=== PATIENT | female | born 1955 | race Caucasian/White ===

== ENCOUNTER → 2017-10-03 15:45 | Outpatient (CLI) | payer SELFPAY ==
--- NOTE | 2017-10-03 16:03 | VDLE_ITS ---
Reason For Study: LEG PAIN RIGHT LEFT GSV is normal. CFV is compressible, spontaneous, phasic, CFV is compressible, spontaneous, phasic, competent, and demonstrates normal competent and demonstrates normal augmentation. augmentation. FV is compressible, spontaneous, phasic, competent and demonstrates normal augmentation. POP V is compressible, spontaneous, phasic, competent and demonstrates normal augmentation. T/P Trunk is compressible. PTV is compressible. RT PerV is compressible. Procedure Exam performed in department. A preliminary report was called and/or faxed to Dr. Anderson. Interpretation Summary Deep veins of the right lower extremity are patent and compressible segmentally. There is no evidence of right lower extremity deep vein thrombosis. Valvular competence appears intact within the proximal deep venous system on the right . The right greater saphenous vein appears patent and compressible segmentally. Ordering Physician: Monika Anderson Referring Physician: Monika Anderson Performed By: Gwen Hopper RVT
== END ==
PROVIDERS: Visit Provider Internal Medicine
DX: M79.661 Pain in right lower leg (principal)
CPT/HCPCS: 93971

== ENCOUNTER → 2017-10-13 17:29 | Outpatient (CLI) | payer OTHER, SELFPAY ==
--- NOTE | 2017-10-13 17:29 | DT_ITS ---
This patient was seen during an EMR downtime October 06, 2017 - October 13, 2017. This patient may have a combination of paper and electronic documentation or all paper documentation. All documentation is viewable within the e-chart portion of [facility] for each patient visit.
--- NOTE | 2017-10-13 17:39 | MRI_ITS ---
STUDY: MRI LUMBAR SPINE WITHOUT CONTRAST REASON FOR EXAM: Female, 61 years old. Low back pain, radiates to right leg. TECHNIQUE: Standardized fat and water weighted pulse sequences were obtained in the sagittal and axial planes. COMPARISON: None FINDINGS: T12-L1: Disc desiccation and decreased disc space with circumferential disc bulge without significant spinal canal narrowing or foraminal narrowing. Normal lumbar lordosis. There is no substantial scoliosis. Normal conus medullaris that terminates at the T12 level. L1-2: Disc desiccation and mild decreased disc space with circumferential disc bulge. There is mild bilateral foraminal narrowing and lateral recess narrowing at this level. L2-3: Decreased disc space and circumferential disc bulge is present without significant foraminal narrowing. There is mild lateral recess narrowing at this level. L3-4: Disc desiccation and disc osteophyte complex with compounding facet hypertrophy resulting in severe spinal canal narrowing and lateral recess narrowing at this level. There is mild bilateral foraminal narrowing. L4-5: Decreased disc space and circumferential disc bulge with compounding facet hypertrophy results in moderate right and severe left lateral recess narrowing and moderate spinal canal narrowing. There is mild right and moderate left foraminal narrowing present. L5-S1: Decreased disc space and endplate degenerative change with disc osteophyte complex and disc bulge resulting in mild left foraminal narrowing without significant spinal canal narrowing. There is moderate left and mild right lateral recess narrowing. Normal visualized sacral ala. Normal visualized paraspinous soft tissue structures. MRI/Spine Lumbar (Routine) IMPRESSION: 1. L3/4 severe spinal canal narrowing and lateral recess narrowing, clinically correlate for descending L4 nerve root radiculopathy. 2. L4/5 moderate right and severe left lateral recess narrowing with moderate spinal canal narrowing as above. 3. Additional degenerative changes as above. Electronically Signed: Antonio Green DO at 22:34 EDT , Service support ,
== END ==
PROVIDERS: Visit Provider Internal Medicine
DX: M54.5 Low back pain (principal)
CPT/HCPCS: 72148

== ENCOUNTER 2020-11-07 18:17 | Emergency (ER) | payer OTHER, SELFPAY ==
[2020-11-07 18:18] VITALS: BP 118/68; PULSE 85; RESP 17; TEMP 36.2; O2SAT 97; BMI 25.0
--- NOTE | 2020-11-07 18:43 | CT_ITS ---
STUDY: CT ABDOMEN AND PELVIS WITHOUT CONTRAST REASON FOR EXAM: Female, 65 years old. Other, RT ABDOMEN AND GROIN PAINSURGERY:HERNIA REPAIR WITH MESH,TUBAL LIGATION RADIATION DOSAGE (If Supplied By Facility): CTDIvol = ( 15.99 ) mGy, DLP = ( 751.06 ) mGycm TECHNIQUE: Transaxial images were obtained from the dome of the diaphragm to the symphysis pubis without oral contrast, and without intravenous contrast. Sagittal and coronal images were reconstructed. Individualized dose optimization techniques were used for this CT. COMPARISON: CT of abdomen and pelvis dated December 07, 2014 FINDINGS: The visualized lung bases are unremarkable. Reidentification of numerous benign cysts scattered throughout the liver . Small cysts in the uncinate process of the pancreas is unchanged. The remaining aspects of the pancreas are unremarkable. Stable intra-abdominal hernia mesh. Normal gallbladder and extrahepatic biliary system. There is a benign calcified granuloma of the spleen. Normal bilateral adrenal glands. Normal right kidney. Normal left kidney. No radiopaque stones or hydronephrosis is seen. Normal visualized stomach. Normal small intestine. There are multiple colonic diverticula consistent with diverticulosis. The colon is stool-filled. The appendix is visualized and appears normal. There is diffuse atherosclerotic calcification of the abdominal aorta with elongation and tortuosity, but without a demonstrated aneurysm. Normal inferior vena cava. Normal retroperitoneum. Normal urinary bladder. Unremarkable uterus and bilateral adnexal clips. Normal abdominal wall. Normal osseous structures. CT/Abdomen/Pelvis without Cont IMPRESSION: 1. Colonic diverticulosis. Electronically Signed: Kyire Dominguez MD at 20:44 EDT , Service support ,
--- NOTE | 2020-11-07 18:43 | EX.ED.DYSGE1 ---
HPI History of Present Illness Chief Complaint: Abd Pain Narrative Narrative: Patient presents with right lower quadrant abdominal pain some suprapubic pain and some dysuria. She also has some flank pain. Apparently she has had a UTI on and off for the past few months. She is denying any fever or chills she was started on antibiotics a week ago and the dysuria is slightly improving. No nausea or vomiting. PFSH PFSH Home Medications prednisone 50 mg PO DAILY #5 tab 11/07/20 [Rx Last Taken Unknown] Allergy/AdvReac Type Severity Reaction Status Date / Time No Known Allergies Allergy Verified 11/07/20 18:19 Social History Smoking Status: Never smoker ROS ROS ED ROS Narrative Past medical history: Reviewed Medications: Reviewed Social history: Noncontributory Review of systems: All systems negative except as indicated General: No fever Eyes: No visual changes ENT: No upper airway congestion, normal voice Neck: No neck pain Cardiovascular: No chest pain Respiratory: No shortness of breath or cough Gastrointestinal: Abdominal pain and flank pain as in HPI Genitourinary: Urinary symptoms as in HPI Musculoskeletal: The abdominal pain does radiate into the upper thigh region of the right leg. Skin: No rash Neurological: No memory loss, confusion or any focal weakness Psych: No recent behavioral changes Hematologic: No easy bleeding or easy bruising EXAM Physical Exam Narrative Exam Narrative: Physical exam General: Well nourished, Well developed, No Acute Distress Head: Normocephalic, Atraumatic Eyes: Conjunctiva not pale ENT: Moist mucous membranes Neck: Supple, Nontender, No lymphadenopathy Cardiovascular: Regular rate, Regular rhythm Respiratory: No distress, CTA bilaterally Abdomen: Soft, there is some right lower quadrant pain and midline pain. There is no guarding or rebound. Back: Nontender, Normal Inspection. Some tenderness over the right CVA region and lower. Extremities: Some tenderness to palpation anteriorly over the right proximal thigh region, no mass, no infection, neurovascularly intact Skin: Normal color, No rash Neurological: Alert, Normal Strength, Normal Sensation Psychological: Normal affect Const Vital Signs: 11/07/20 18:18 11/07/20 19:36 Temperature 97.2 F L Temperature Source Temporal Pulse Rate 85 59 L Respiratory Rate 17 16 Blood Pressure 118/68 118/73 Blood Pressure Mean 84 88 Pulse Ox 97 100 Oxygen Delivery Method Room Air Room Air MDM MDM MDM Narrative Medical decision making narrative: Patient has an unremarkable work-up I reexamined her she seems to have quite a lot of pain over her IT band as well as posterior buttock region, she has no back pain she has a negative straight leg test, she has no other radicular or neurological symptoms. She may benefit from an orthopedic follow-up otherwise I believe she can be discharged in stable condition. Lab Data Labs: Laboratory Results - last 24 hr 11/07/20 11/07/20 11/07/20 18:36 18:52 18:52 WBC 6.5 RBC 4.39 Hgb 13.4 Hct 41.1 MCV 93.6 MCH 30.5 MCHC 32.6 RDW Std Deviation 47.0 H RDW Coeff of [place] 13.7 Plt Count 228 MPV 9.0 Immature Gran % (Auto) 0.200 Neut % (Auto) 50.7 Lymph % (Auto) 40.5 [place] % (Auto) 6.0 Eos % (Auto) 1.7 Baso % (Auto) 0.9 Absolute Neuts (auto) 3.3 Absolute Lymphs (auto) 2.62 Nucleated RBC % 0 Sodium 140 Potassium 3.9 Chloride 106 Carbon Dioxide 28.0 Anion Gap 6 BUN 15 Creatinine 0.92 Estim Creat Clear Calc 57.83 Est GFR (MDRD) Af Amer 79 Est GFR (MDRD) Non-Af 65 BUN/Creatinine Ratio 16.3 Glucose 94 Calcium 9.2 Total Bilirubin 0.50 AST 20 ALT 29 Alkaline Phosphatase 74 Total Protein 8.1 Albumin 3.7 Globulin 4.4 H Albumin/Globulin Ratio 0.8 L Urine Color Yellow Urine Clarity Clear Urine pH 6.0 Ur Specific [place] 1.010 Urine Protein Negative Urine Glucose (UA) Normal Urine Ketones Negative Urine Occult Blood 25 H Urine Nitrite Negative Urine Bilirubin Negative Urine Urobilinogen Normal Ur Leukocyte Esterase Negative Urine RBC 0 SEEN Urine WBC 0 SEEN Ur Squamous Epith Cells 0-5 SEEN Urine Bacteria 0 SEEN Urine Mucus 0 SEEN Radiography Diagnostic Testing: Radiology Impression Abdomen/Pelvis CT 11/07/20 18:43 IMPRESSION: 1. Colonic diverticulosis. Electronically Signed: Kyrie Dominguez MD at 20:44 EDT , Service support , Discharge Plan Triage Chief Complaint: Abd Pain ED Provider: Tr De Dios Dx/Rx/DC Orders Clinical Impression: Abdominal pain, Acute leg pain Instructions: Abdominal Pain, RICE Prescriptions: New prednisone 50 mg tablet 50 mg PO DAILY Qty: 5 RF: 0 Primary Care Provider: Monika Anderson Referrals: Monika Anderson DO [Primary Care Provider] - Abelino Nicholson MD [STAFF PHYSICIAN] - 3-5 Days
[2020-11-07 19:03] LABS: Absolute Lymphocyte Count 2.62 X10^3/uL (0.83-4.51); Absolute Neutrophil Count 3.3 X10^3/uL (2.0-7.7); Basophil# 0.06 X10^3/uL; Basophil% 0.9 % (0-1); Eosinophil# 0.11 X10^3/uL; Eosinophils% 1.7 % (0-5); Hematocrit 41.1 % (37-47); Hemoglobin 13.4 g/dL (12.0-15.0); Lymphocyte # 2.62 X10^3/ul (0.83-4.51); Lymphocyte % 40.5 % (19-41); Mean Corp Hgb Conc 32.6 g/dL (32-36); Mean Corpuscular Hgb 30.5 pg (27.0-32.0); Mean Corpuscular Volume 93.6 fL (81-99); Monocyte# 0.39 X10^3/uL; NRBC Flagged by Analyzer 0 % (0-5); Neutrophil # 3.28 X10^3/uL (2.7-7.7); Neutrophil % 50.7 % (47-70); Platelet Count 228 K/mm3 (150-450); RBC Distribution Width CV 13.7 % (11.6-14.6); Red Blood Count 4.39 M/mm3 (4.2-5.4); White Blood Count 6.5 K/mm3 (4.4-11.0)
[2020-11-07 19:09] LABS: Bacteria 0 SEEN /hpf (None Seen); Color, Urine Yellow (Yellow); Glucose, Dipstick Normal (Normal); Ketone-Dipstick Negative (Negative); Leukocyte Esterase-Dipstick Negative /ul (Negative); Mucous, Urine 0 SEEN /hpf (<or=2+); Nitrite-Dipstick Negative (Negative); Occult Blood-Urine 25 /ul (Negative); Protein-Dipstick Negative (Negative); Red Blood Cells-Urine 0 SEEN /hpf (0-5); Urine Bilirubin Dipstick Negative (Negative); Urine Clarity Clear (Clear); Urine Urobilinogen Normal (Normal); White Blood Cells 0 SEEN /hpf (0-5)
[2020-11-07 19:15] LABS: Squamous Epithelial Cells - UA 0-5 SEEN /hpf (5-10)
[2020-11-07 19:19] LABS: ALB/GLOB Ratio 0.8 RATIO (0.9-2.4); AST(SGOT) 20 U/L (15-37); Alanine Aminotransfer ALT/SGPT 29 U/L (13-56); Albumin, Serum 3.7 g/dL (3.2-5.0); Alkaline Phosphatase 74 U/L (45-117); Anion Gap 6 (5-15); BUN 15 mg/dL (7-18); BUN/Creat Ratio 16.3 RATIO (10-20); Calcium,Total 9.2 mg/dL (8.5-10.1); Chloride 106 mmol/L (98-107); Creatinine, Serum 0.92 mg/dL (0.55-1.02); EST Glomerular Filtration Rate 65 mL/min (>60); Est Glom Filt Rate - Afr Amer 79 mL/min (>60); Estimated Creatinine Clearance 57.83 ml/min; Globulin 4.4 g/dL (2.2-4.2); Glucose 94 mg/dL (74-106); Potassium 3.9 mmol/L (3.5-5.1); Protein, Total 8.1 g/dL (6.4-8.2); Sodium Level 140 mmol/L (136-145)
[2020-11-07 19:36] VITALS: BP 118/73; PULSE 59; RESP 16; O2SAT 100
[2020-11-07 21:29] VITALS: PULSE 62; RESP 16; O2SAT 98
== END 2020-11-07 21:30 | disposition home or self-care (01) ==
LOC: ED 19:14
PROVIDERS: Emergency Provider Emergency Medicine; PCP Internal Medicine
DX: R10.9 Unspecified abdominal pain (principal); M79.606 Pain in leg, unspecified; K57.30 Diverticulosis of large intestine without perforation or abscess without bleeding; Z79.52 Long term (current) use of systemic steroids; Z87.440 Personal history of urinary (tract) infections
CPT/HCPCS: 74176; 80053; 81001; 85025; 99283; A4216

== ENCOUNTER → 2024-06-11 | Outpatient (CLI) | payer SELFPAY ==
[2024-06-11 17:53] LABS: Hematocrit 39.8 % (37-47); Mean Corp Hgb Conc 32.7 g/dL (32-36); Mean Corpuscular Volume 91.9 fL (81-99); Mean Platelet Vol. 9.8 fl (6.2-12.0); Platelet Count 260 K/mm3 (150-450); RBC Distribution Width CV 14.7 % (11.6-14.6); RBC Distribution Width SD 50.1 fl (35.1-43.9); Red Blood Count 4.33 M/mm3 (4.2-5.4); White Blood Count 8.3 K/mm3 (4.4-11.0)
[2024-06-11 18:22] LABS: ALB/GLOB Ratio 0.8 RATIO (0.9-2.4); AST(SGOT) 16 U/L (15-37); Alanine Aminotransfer ALT/SGPT 20 U/L (13-56); Albumin, Serum 3.8 g/dL (3.2-5.0); Alkaline Phosphatase 71 U/L (45-117); Anion Gap 6 (5-15); BUN 15 mg/dL (7-18); BUN/Creat Ratio 21.5 RATIO (10-20); Calcium,Total 9.6 mg/dL (8.5-10.1); Chloride 102 mmol/L (98-107); EST Glomerular Filtration Rate 89 mL/min (>60); Est Glom Filt Rate - Afr Amer 108 mL/min (>60); Globulin 4.7 g/dL (2.2-4.2); Glucose 112 mg/dL (74-106); Potassium 4.3 mmol/L (3.5-5.1); Protein, Total 8.5 g/dL (6.4-8.2); Rheumatoid Factor < 10.0 IU/mL (<15); Sodium Level 136 mmol/L (136-145); Uric Acid 3.7 mg/dL (2.6-6.0)
[2024-06-14 16:07] LABS: ANTINUCLEAR ANTIBODIES DIRECT Negative (Negative)
== END | disposition home or self-care (01) ==
PROVIDERS: PCP Family Medicine; Referring Provider Family Medicine; Visit Provider Family Medicine
DX: M17.11 Unilateral primary osteoarthritis, right knee (principal)
CPT/HCPCS: 36415; 80053; 84550; 85027; 86038; 86431

== ENCOUNTER → 2025-01-08 | Outpatient (CLI) | payer SELFPAY ==
--- OUTSIDE RECORDS SUMMARY | 2025-01-08 07:39 | XMS RPT_ITS | CCD ---
Author Organization [facility] Care Team Providers Care Numerical Control Programmer Name Role Phone Monika Anderson Unavailable Marian Mathew Unavailable Unavailable Ciesa, Kary Unavailable Galilea Waters Unavailable Unavailable Unavailable Unavailable Matthew Ferguson Unavailable Unavailable Messenger Galilea Unavailable Unavailable Unavailable Unavailable Justin ROSSI Monika Unavailable Lela Solano CMA Unavailable Unavailable Messenger Galilea SALOMON Unavailable Unavailable Marian Mathew Unavailable Unavailable Ciesa CESAR, Kary Unavailable Unavailable Unavailable Sean Garcia Admitting Provider Sean Garcia Attending Provider [facility], [facility] Emergency Provider Unav ailable Sean Pineda V. Attending Unavailable Sean Pineda V. Admitting Unavailable [facility], [facility] Consulting Unavail able Unavailable Primary Care Provider UnavailSEAN Bonner Referring Unavailable SHELLEY CRUZ Attending Unavailable Dr. Breezy Mello MD Primary Care Provider [phone] Dr. Breezy Mello MD Referring Provider Dr. Woody Guerrier DO Attending Provider Dr. Thang Yuen MD Attending Provider Breezy Mello Referring Unavailable Breezy Mello Attending Unavailable Breezy Mello Primary Care Unavailable Breezy Mello Primary Care Unavailable Woody Guerrier Attending Unavailable Breezy Mello Primary Care Unavailable Woody Guerrier Referring Unavailable Woody Guerrier Attending Unavailable Breezy Mello Referring Unavailable Breezy Mello Primary Care Unavailable Woody Guerrier Attending Unavailable Riaz, Breezy Primary Care Unavailable Alpa, Thang Attending Unavailable Medications Completed/Discontinued Medications Medication Drug Class(es) Dates Sig (Normalized) Sig (Original) acetaminophen 325 mg / HYDROcodone bitartrate 5 mg oral tablet (2 sources) Opioid Agonist Start: 06-06-2022 take 1 tablet by mouth every four to six hours as needed for pain Hydrocodone/Apap 5mg/325mg [Hydrocodone/Apap 5 Mg/325 Mg] 1 - 2 TAB PO EVERY 4 TO 6 HOURS NEEDED PRN For pain 40 7 June 06, 2022 Active amoxicillin 875 mg / clavulanate 125 mg oral tablet (11 sources) Penicillin-class Antibacterial Start: 10-30-2020 End: 11-09-2020 take 1 tablet by mouth twice daily Amoxicillin-Pot Clavulanate 875-125 MG Oral Tablet 1 (one) Tablet bid for 10 days Quantity: 20 {Tablet} Refills: 0 Ordered: 30-Oct-2020 Lela Solano CMA Start : 30-Oct-2020 End : 09-Nov-2020 Inactive Start: 07-01-2018 End: 07-11-2018 take 1 tablet by mouth twice daily Augmentin 875-125 MG Oral Tablet 1 (one) Tablet bid for 10 days Quantity: 20 {Tablet} Refills: 0 Ordered: 01-Jul-2018 Karina GUERRERODebra Start : 01-Jul-2018 End : 11-Jul-2018 Inactive aspirin 325 mg oral tablet (2 sources) Platelet Aggregation Inhibitor, Nonsteroidal Anti-inflammatory Drug Start: 06-06-2022 take 325 mg by mouth twice daily Aspirin 325 MG PO TWICE A DAY June 06, 2022 Active azithromycin 250 mg oral tablet (7 sources) Macrolide Antimicrobial Start: 03-03-2007 End: 10-04-2008 ZITHROMAX Z-ILENE, 250MG (Oral Tablet) 1 (one) Tablet as directed for 0 days Quantity: 1 {Tablet} Refills: 0 Ordered: 03-Mar-2007 STEVE Sterling LPN Start : 03-Mar-2007 End : 04-Oct-2008 Inactive celecoxib 200 mg oral capsule (2 sources) Nonsteroidal Anti-inflammatory Drug Start: 06-06-2022 take 200 mg by mouth twice daily Celecoxib [Celebrex] 200 MG PO TWICE A DAY June 06, 2022 Active ciprofloxacin 500 mg oral tablet (7 sources) Quinolone Antimicrobial Start: 12-09-2014 End: 08-16-2015 take 1 tablet by mouth twice daily CIPRO, 500MG (Oral Tablet) 1 (one) Tablet bid for 0 days Quantity: 20 {Tablet} Refills: 0 Ordered: 16-Aug-2015 Galilea Waters RN Start : 09-Dec-2014 End : 16-Aug-2015 Inactive COMPOUNDED PRESCRIPTION (3 sources) Start: 03-22-2009 COMPOUNDED PRESCRIPTION thyroid herbs---once daily 0 03/22/2009 Active Comment on above: thyroid herbs---once daily cyclobenzaprine hydrochloride 10 mg oral tablet (3 sources) Muscle Relaxant Start: 01-15-2014 take 1 tablet by mouth every eight hours as needed cyclobenzaprine (FLEXERIL) 10 mg tablet Take 1 tablet by mouth three times daily as needed for Muscle Spasm. 15 tablet 0 01/15/2014 Active Comment on above: [facility] times daily as needed for Muscle Spasm. garlic preparation 500 mg oral capsule (2 sources) Non-Standardized Food Allergenic Extract Start: 05-20-2022 take 500 mg by mouth once daily Garlic [Garlic Oil] 500 MG PO DAILY May 20, 2022 Active Start: 05-20-2022 take 500 mg by mouth once timur y Garlic 500 MG PO DAILY May 20, 2022 Active lansoprazole 30 mg delayed release oral capsule (7 sources) Proton Pump Inhibitor Start: 08-24-2007 End: 10-04-2008 take 1 capsule by mouth once daily PREVACID, 30MG (Oral Capsule Delayed Release) 1 (one) Capsule DR Daily for 0 days Refills: 0 Ordered: 24-Aug-2007 STEVE Sterling LPN Start : 24-Aug-2007 End : 04-Oct-2008 Inactive Multivitamin preparation (2 sources) Start: 05-20-2022 take 1 capsule by mouth once daily Multivitamin [Multivitamin *] 1 CAP PO DAILY May 20, 2022 Active Start: 05-20-2022 take 1 capsule by mo [facility] once daily Multivitamin 1 CAP PO DAILY May 20, 2022 Active nitrofurantoin, macrocrystals 25 mg / nitrofurantoin, monohydrate 75 mg oral capsule (5 sources) Nitrofuran Antibacterial Start: 07-10-2020 End: 07-17-2020 take 1 capsule by mouth twice daily Macrobid 100 MG Oral Capsule 1 (one) Capsule bid for 7 days Quantity: 14 {Capsule} Refills: 0 Ordered: 10-Jul-2020 Debra Collins CNP Start : 10-Jul-2020 End : 17-Jul-2020 Inactive Comments: or generic Comment on above: or generic No routine meds at this time (7 sources) No routine meds at this time Active Wyocena-3 Fatty Acids (1 source) Start: 05-20-2022 take 1 capsule by mouth once daily Wyocena-3 Fatty Acids 1 CAP PO DAILY May 20, 2022 Active Wyocena-3 Fatty Acids [Fish Oil 1000 Mg] (1 source) Start: 05-20-2022 take 1 capsule by mouth once daily Wyocena-3 Fatty Acids [Fish Oil 1000 Mg] 1 CAP PO DAILY May 20, [Mass/Vol] 14.3 g/dL Normal 12.0-16.0 [facility] Comment on above: Performed By: #### C BC #### [address] [address] Lymphocytes (Bld) [#/Vol] 2.6 10*3/uL Normal 1.0-4.0 [facility] Comment on above: Performed By: #### C BC #### [address] [address] Lymphocytes/100 WBC (Bld) 42.3 % Normal 16-48 [facility] Comment on above: Performed By: #### C BC #### [facility] [address] [place] [address] MCV (RBC) [Entitic vol] 95.5 fL Normal 80-97 [facility] Comment on above: Performed By: #### C BC #### [facility] [address] [place] [address] MEAN CORPUSCULAR HGB 31.4 pg Normal 26.0-32.0 [facility] Comment on above: Performed By: #### C BC #### [facility] [address] [place] [address] MEAN CORPUSCULAR HGB CONC 32.9 g/dL Normal 31.0-36.0 [facility] Comment on above: Performed By: #### C BC #### [address] [address] MONO DISTRIB WIDTH Not performed Normal 0-20 [facility] Comment on above: Performed By: #### C BC #### [facility] [address] [place] [address] Monocytes (Bld) [#/Vol] 0.4 10*3/uL Normal 0.1-1.7 [facility] Comment on above: Performed By: #### C BC #### [facility] [address] [place] [address] Monocytes/100 WBC (Bld) 5.7 % Normal 3-9 [facility] Comment on above: Performed By: #### C BC #### [facility] [address] [place] [address] Platelet mean volume (Bld) [Entitic vol] 7.3 fL Normal 6.6-10.5 [facility] Comment on above: Performed By: #### C BC #### [facility] [address] [place] [address] Platelets (Bld) [#/Vol] 299 10*3/uL Normal 140-450 [facility] Comment on above: Performed By: #### C BC #### [facility] [address] [place] [address] RBC (Bld) [#/Vol] 4.55 10*6/uL Normal 4.20-5.50 [facility] Comment on above: Performed By: #### C BC #### [facility] [address] [place] [address] RED CELL DISTRI WIDTH 14.2 % Normal 11.0-15.5 [facility] Comment on above: Performed By: #### C BC #### [facility] [address] [place] [address] WBC (Bld) [#/Vol] 6.2 10*3/uL Normal 4.0-11.0 [facility] Comment on above: Performed By: #### C BC #### [facility] [address] [place] [address] GLYCOHEMOGLOBIN (A1C)on 05-05 EST AVG GLUCOSE [address] [facility] Comment on above: Performed By: #### G LY #### [facility] [address] [place] [address] HbA1c (Bld) [Mass fraction] 5.7 % [facility] Comment on above: Result Comment: Inte rpretation of Hgb A1C results: <5.7% Normal 5.7% - 6.4% Prediabetes >6.4% Diabetes SAMPLES FROM PATIENTS WITH HEMOLYTIC ANEMIAS OR THE PRESENCE OF UNSTABLE HEMOGLOBINS LIKE HbSS OR HbSC WILL EXHIBIT DECREASED GLYCATED HGB DUE TO THE SHORTENED LIFE SPAN OF THE RED CELLS.RESULTS ARE NOT RELIABLE IN PATIENTS WITH CHRONIC BLOOD LOSS. Performed By: #### G LY #### [address] [address] Laboratory studies (set)on 0 - Basophils (Bld) [#/Vol] 0.1 10*3/uL 0-0.1 [facility] Basophils/100 WBC (Bld) 1.00 % 0-2 [facility] Eosinophils (Bld) [#/Vol] 0.1 10*3/uL 0.0-1.80 [facility] Eosinophils/100 WBC (Bld) 1.3 % 0-8 [facility] Erythrocyte distribution width (RBC) [Ratio] 14.2 % 11.0-15.5 [facility] Granulocytes (Bld) [#/Vol] 3.1 10*3/uL 2.2-9.1 [facility] Granulocytes/100 WBC (Bld) 49.7 % 42-80 [facility] Lymphocytes (Bld) [#/Vol] 2.6 10*3/uL 1.0-4.0 [facility] Lymphocytes/100 WBC (Bld) 42.3 % 16-48 [facility] MCH (RBC) [Entitic mass] 31.4 pg 26.0-32.0 [facility] MCHC (RBC) [Mass/Vol] 32.9 g/dL 31.0-36.0 [facility] MCV (RBC) [Entitic vol] 95.5 fL 80-97 [facility] Monocyte distribution width Auto (Bld) [Entitic vol] 0-20 [facility] Monocytes (Bld) [#/Vol] 0.4 10*3/uL 0.1-1.7 [facility] Monocytes/100 WBC (Bld) 5.7 % 3-9 [facility] Platelet mean volume (Bld) [Entitic vol] 7.3 fL 6.6-10.5 [facility] Platelets (Bld) [#/Vol] 299 10*3/uL 140-450 [facility] RBC (Bld) [#/Vol] 4.55 10*6/uL 4.20-5.50 [facility] WBC (Bld) [#/Vol] 6.2 10*3/uL 4.0-11.0 [facility] Anion gap [Moles/Vol] 9.8 mmol/L Low 11-23 [facility] Appearance (U) CLEAR [facility] Bilirubin Ql (U) NEGATIVE [facility] Calcium [Mass/Vol] 10.0 mg/dL 8.5-10.1 [facility] Chloride [Moles/Vol] 104 mmol/L 98-107 [facility] CO2 [Moles/Vol] 27.0 mmol/L 21-32 [facility] Color (U) [facility] Creatinine [Mass/Vol] 0.80 mg/dL 0.55-1.02 [facility] Estimated Average Glucose 117 [facility] Estimated GFR () [facility] Comment on above: THE NORMAL LEVEL OF GFR VARIES ACCORDING TO AGE, SEX, AND BODY SIZE. A GFR LEVEL OF LESS THAN 60 ML/MIN REPRESENTS LOSS OF THE ADULT LEVEL OF NORMAL KIDNEY FUNCTION. GFR/1.73 sq M.predicted among non-blacks MDRD (S/P/Bld) [Vol rate/Area] [facility] Glucose [Mass/Vol] 105 mg/dL High 70-100 [facility] Glucose Ql (U) NEGATIVE [facility] HbA1c (Bld) [Mass fraction] 5.7 % [facility] Comment on above: Interpretation of Hg b A1C results: <5.7% Normal 5.7% - 6.4% Prediabetes >6.4% Diabetes SAMPLES FROM PATIENTS WITH HEMOLYTIC ANEMIAS OR THE PRESENCE OF UNSTABLE HEMOGLOBINS LIKE HbSS OR HbSC WILL EXHIBIT DECREASED GLYCATED HGB DUE TO THE SHORTENED LIFE SPAN OF THE RED CELLS.RESULTS ARE NOT RELIABLE IN PATIENTS WITH CHRONIC BLOOD LOSS. Hemoglobin Ql (U) High NEGATIVE [facility] Ketones Ql (U) NEGATIVE [facility] Leukocyte esterase Test strip Ql (U) High NEGATIVE [facility] Nitrite Ql (U) NEGATIVE [facility] pH (U) 5.5 [pH] 5.0-9.0 [facility] Potassium [Moles/Vol] 3.8 mmol/L 3.5-5.1 [facility] Protein Ql (U) NEGATIVE [facility] RBC LM.HPF (Urine sed) [#/Area] 0-2 [facility] Sodium [Moles/Vol] 137 mmol/L 136-145 [facility] Specific gravity (U) [Rel density] 1.025 1.003-1.035 [facility] Urea nitrogen [Mass/Vol] 12.0 mg/dL 7-18 [facility] Urine Bacteria <1+ [facility] Urine Squamous Epithelial Cells NONE-MANY [facility] Urine WBC 0-3 [facility] Urobilinogen Ql (U) 0.2 E.U./dL <=1.0 [facility]-20-2022 PC.CONSULT YO [place] [id number] Attending provider: [facility] [id number] Sean Pineda V. 1955 66 DOS: Perioperative Clinic Consult - Date of Service Date of Service: 05/20/22 - History of Present Illness Reason for Visit: Osteoarthritis of hip, right History of Present Illness: This is a pleasant, 66-year-old, Baptism, female patient of Dr. Sanchez, presenting in the clinic today for an evaluation prior to a right total hip arthroplasty; which is scheduled to occur on 06-06-2022. The patient denies any significant past medical history but does not follow-up with a primary care provider regularly. The patient admits to chronic and progressive right hip pain for the last 4 or more years. She was previously being evaluated by a chiropractor without improvement in her symptoms. She admits to hip pain that radiates into her groin/anterior thigh. Her pain is worse first thing in the morning and with position changes such as going from sitting to standing. She also admits to increased pain with weightbearing activity including standing for long periods of time. She is now using a cane for ambulation assistance. She denies any joint crepitus, loss of ROM in the joint, joint laxity, RLE weakness, RLE paresthesias, or RLE muscle spasms. She has not received any intra-articular injections and is not using any oral analgesics. She occasionally applies heat for pain. She sought orthopedic evaluation and surgical intervention was recommended. She offers no other complaints during her time of visit today. - Review of Systems Constitutional: Chills (on occ). Denies: Fever, Sweats, Malaise Eyes: Denies: Pain, Vision Change ENT: Ear Pain (occ anterior right ear). Denies: Nose Discharge, Nose Congestion, Mouth Pain, Throat Pain Respiratory: Denies: Cough, Shortness of Breath, Hemoptysis, SOB with Excertion, Sputum, Wheezing Gastrointestinal: Denies: Nausea, Vomiting, Abdominal Pain, Diarrhea, Constipation, Hematochezia Genitourinary: Denies: Dysuria, Hematuria Cardiovascular: Chest Pain (? occ left upper chest pain/shoulder pain into arm, worse in the AM, not related to activity, very non-specific), Edema (BLE). Denies: Palpitations, Orthopnea, Paroxysmal Noc. Dyspnea, Light Headedness Musculoskeletal: Arm Pain (numbness from left elbow down into hand), Back Pain (chronic upper back between shoulder blades;; chronic lower back pain), Leg Pain (right hip pain). Denies: Neck Pain Skin: Denies: Rash, Lesions Neurological: Incoordination (using cane). Denies: Weakness, Numbness Psychiatric: Depression. Denies: Anxiety - Past Medical/Surgical History General History: Denies: Hypertension, Diabetes, Myocardial Infarction, COPD, CVA, Seizures, Aety, Depression Cardiovascular: No: Hypertension, ID, Arrhythmia, Heart Murmur, Deep Vein Thrombosis Central Nervous System: No: CVA, Peripheral Neuropathy, Seizures, TIA Gastrointestinal: No: GERD, Crohn's disease Hematology/Oncology: No: Anemia Psychological: No: Anxiety, Depression, Dementia Pulmonary: No: Asthma, COPD, Pulmonary Embolism Endocrine: No: Diabetes, Hyperthyroidism, Hypothyroidism Dermatology: No: MRSA Surgical History: Yes: , Hernia Repair, Other (Laser back surgery) Other Surgical History: Patient admits to PONV after her back surgery and states that she has been slow to awaken postoperatively - Family History Family History: Father- Leukemia - Psychosocial History Smoking Status: Never Smoker Hx Alcohol Use: No Drugs: None Living Conditions: Alone (with spouse) - Medications Home Medications: Home Orders Garlic [Garlic Oil] 500 mg PO DAILY 05/20/22 [History] Multivitamin [Multivitamin *] 1 cap PO DAILY 05/20/22 [History] Wyocena-3 Fatty Acids [Fish Oil 1000 mg] 1 cap PO DAILY 05/20/22 [History] - Allergies Allergies/Adverse Reactions: Allergy/AdvReac Type Severity Reaction Status Date / Time No Known Drug Allergy Allergy Unverified 05/20/22 12:22 - Physical Exam Vital Signs: Vital Signs (Last Documented) Temperature (celsius) 36.6 C Temperature Source Temporal Artery Pulse Rate [Left Radial] 63 Respiratory Rate 16 O2 Sat by Pulse Oximetry 100 Blood Pressure [Right Arm] 118/60 General Appearance: awake, alert, no apparent distress, other (Appears older than her stated age) Eyes: PERRL, EOMI, conjunctivae clear, no discharge, no scleral icterus Head, Ears, Nose, and Throat: TMs normal, pharynx normal, EAC normal, mucous membranes moist, nares clear, mastoid non-tender, other (TMJ nontender to palpation without popping or clicking) Neck: supple, non-tender, no masses, no cervical lymphadenopathy, no bony tenderness Respiratory: lungs clear, no wheezes, rhonchi, or rales, no respiratory distress, no accessory muscle use Cardiovascular: regular rate, regular rhythm, S1/S2 Abdomen/GI: non tender, soft, nondistended, normal b (more content not included)... Normal [facility] URINALYSIS W/ C S IF INDICAT EDon 05-20-2022 Appearance (U) Clear Normal CLEAR [facility] Comment on above: Order Comment: What Is Urine Source? Clean Catch Mid StreamWhat Is Urine Source? Clean Catch Mid Stream Performed By: #### [facility] ####[facility] [place] [address] Color (U) Yellow Normal [facility] Comment on above: Order Comment: What Is Urine Source? Clean Catch Mid StreamWhat Is Urine Source? [place] Performed By: #### U JERILYN CANTRELL ####[facility] [place] [address] Hemoglobin Ql (U) Trace-Intact Abnormal NEGATIVE [facility] Comment on above: Order Comment: What Is Urine Source? Clean Catch Mid StreamWhat Is Urine Source? Clean Catch [place] Performed By: #### U JERILYN CANTRELL ####[facility] [place] [address] pH (U) 5.5 [pH] Normal 5.0-9.0 [facility] Comment on above: Order Comment: What Is Urine Source? Clean Catch Mid StreamWhat Is Urine Source? Clean Catch Mid Stream Performed By: #### [facility] ####[facility] [facility] [place] [place] [address] URINE BILIRUBIN - DIPSTICK Negative Normal NEGATIVE [facility] Comment on above: Order Comment: What Is Urine Source? Clean Catch Mid StreamWhat Is Urine Source? Clean Catch Mid Stream Performed By: #### U AC, UMICC ####[facility] [facility] [place] [address] URINE GLUCOSE - DIPSTICK Negative Normal NEGATIVE [facility] Comment on above: Order Comment: What Is Urine Source? Clean Catch Mid StreamWhat Is Urine Source? Clean Catch [place] Performed By: #### U AC, UMICC ####[facility] [place] [address] URINE KETONE Negative Normal NEGATIVE [facility] Comment on above: Order Comment: What Is Urine Source? Clean Catch Mid StreamWhat Is Urine Source? Clean Catch Mid Stream Performed By: #### U AC, UMICC ####[address] [place] [address] URINE LEUK ESTERASE 1+ Abnormal NEGATIVE [facility] Comment on above: Order Comment: What Is Urine Source? Clean Catch Mid StreamWhat Is Urine Source? Clean Catch Mid Stream Performed By: #### U AC, [facility] ####[address] [place] [address] URINE NITRITE - DIPSTICK Negative Normal NEGATIVE [facility] Comment on above: Order Comment: What Is Urine Source? Clean Catch Mid StreamWhat Is Urine Source? Clean Catch Mid Stream Performed By: #### U AC, [facility] ####[address] [place] [address] URINE PROTEIN - DIPSTICK Negative Normal NEGATIVE [facility] Comment on above: Order Comment: What Is Urine Source? Clean Catch Mid StreamWhat Is Urine Source? Clean Catch Mid Stream Performed By: #### U AC, UMICC ####[facility] [place] [address] URINE SPEC GRAVITY, DIPSTICK 1.025 Normal 1.003-1.035 [facility] Comment on above: Order Comment: What Is Urine Source? Clean Catch Mid StreamWhat Is Urine Source? Clean Catch [place] Performed By: #### U AC, UMICC ####[facility] [facility] [place] [address] URINE UROBILINOGEN - DIPSTICK 0.2 E.U./dL Normal <=1.0 [facility] Comment on above: Order Comment: What Is Urine Source? Clean Catch Mid StreamWhat Is Urine Source? Clean Catch Mid Stream Performed By: #### U AC, [facility] ####[facility] [place] [address] URINE MICROSCOPICon 05-20-19 23 URINE BACTERIA FEW Normal <1+ [facility] Comment on above: Performed By: #### U AC, [facility] ####[address] [place] [address] UR SQUAM EPITH FEW Normal NONE-MANY [facility] Comment on above: Performed By: #### U AC, [facility] ####[facility] [place] [address] URINE RBC 0-2 Normal 0-2 [facility] Comment on above: Performed By: #### U AC, [facility] ####[address] [place] [address] URINE WBC 5-10 Normal 0-3 [facility] Comment on above: Performed By: #### U AC, [facility] ####[address] [place] [address] URINE PATRICK CULTURE-IDENTIFICA [place] ([id number])Ordered By: Adhesive Bandage Machine Operator on 10-30-2020 Bacteria identified Cx Nom (U) Final report Abnormal [facility]; [facility] Work Phone: Comment on above: PATIENT NOT FASTINGP ERFORMED BY: [employer] [place] [id number] Information: SRC: Bacteria identified Cx Nom (U) Escherichia coli Abnormal [facility]; [facility] Work Phone: Comment on above: Greater than 100,000 colony forming units per mLCefazolin <=4 ug/mLCefazolin with an RYAN <=16 predicts susceptibility to the oral agentscefaclor, cefdinir, cefpodoxime, cefprozil, cefuroxime, cephalexin,and loracarbef when used for therapy of uncomplicated urinary tractinfections due to E. coli, Klebsiella pneumoniae, and Proteusmirabilis. PATIENT NOT FASTINGP ERFORMED BY: [id number] [place] [id number] Information: SRC: Other Antibiotic [Susc] MIHEAD Normal [facility]; [facility] Work Phone: Comment on above: S = Susceptible; I = Intermediate; R = Resistant P = Positive; N = Negative MICS are expressed in micrograms per mL Antibiotic RSLT#1 RSLT#2 RSLT#3 RSLT#4Amoxicillin/Clavulanic Acid SAmpicillin SCefepime SCeftriaxone SCefuroxime SCiprofloxacin SErtapenem SGentamicin SImipenem SLevofloxacin SMeropenem SNitrofurantoin SPiperacillin/Tazobactam STetracycline STobramycin STrimethoprim/Sulfa S PATIENT NOT FASTINGP ERFORMED BY: [facility] Use[facility] RoadDuCommunity Health [id number] Information: SRC: Urinalysis, Office ([id number])Or dered By: Lela Solano on 10-30-2020 Bilirubin Ql (U) Negative Normal Comprehe [facility]; [facility] Work Phone: Glucose Test strip (U) [Mass/Vol] Negative Normal [facility]; [facility] Work Phone: Hemoglobin Ql (U) + Abnormal Compreh [facility]; [facility] Work Phone: Ketones Ql (U) Negative Normal Comprehens [facility]; [facility] Work Phone: Leukocyte esterase Test strip Ql (U) Large Normal [facility]; [facility] Work Phone: Comment on above: +3 Nitrite Ql (U) Negative Normal Comprehens [facility]; [facility] Work Phone: pH (U) 6.0 [pH] Normal [facility]; [facility] Work Phone: Protein Ql (U) Negative Normal Comprehens [facility]; [facility] Work Phone: Specific gravity (U) [Rel density] 1.005 1 Normal [facility]; [facility] Work Phone: Urobilinogen (24H U) [Mass/Time] 2 mg/dL Normal [facility]; [facility] Work Phone: URINE PATRICK CULTURE-IDENTIFICA [place] ([id number])Ordered By: Adhesive Bandage Machine Operator on 07-10-2020 Bacteria identified Cx Nom (U) Final report Abnormal [facility]; [facility] Work Phone: Comment on above: PATIENT NOT FASTINGP ERFORMED BY: BART [employer]Layers70 [facility] [id number] Information: SRC: Bacteria identified Cx Nom (U) Escherichia coli Abnormal [facility]; [facility] Work Phone: Comment on above: Greater than 100,000 colony forming units per mLCefazolin <=4 ug/mLCefazolin with an RYAN <=16 predicts susceptibility to the oral agentscefaclor, cefdinir, cefpodoxime, cefprozil, cefuroxime, cephalexin,and loracarbef when used for therapy of uncomplicated urinary tractinfections due to E. coli, Klebsiella pneumoniae, and Proteusmirabilis. PATIENT NOT FASTINGP ERFORMED BY: Favorite Words6370 [facility]Community [facility] [id number] Information: SRC:UC Other Antibiotic [Susc] MIHEAD Normal [facility]; [facility] Work Phone: Comment on above: S = Susceptible; I = Intermediate; R = Resistant P = Positive; N = Negative MICS are expressed in micrograms per mL Antibiotic RSLT#1 RSLT#2 RSLT#3 RSLT#4Amoxicillin/Clavulanic Acid SAmpicillin SCefepime SCeftriaxone SCefuroxime SCiprofloxacin SErtapenem SGentamicin SImipenem SLevofloxacin SMeropenem SNitrofurantoin SPiperacillin/Tazobactam STetracycline STobramycin STrimethoprim/Sulfa S PATIENT NOT FASTINGP ERFORMED BY: BART Yashi Vksyqs3037 [facility]Community [facility] [id number] Information: SRC: Urinalysis, Office ([id number])Or dered By: Matthew Ferguson on 07-10-2020 Bilirubin Ql (U) Negative Normal Comprehe nsive Internal Medicine; [facility] Work Phone: Bilirubin Ql (U) Negative Normal Comprehe nsive Internal Medicine; [facility] Work Phone: Glucose Test strip (U) [Mass/Vol] Negative Normal [facility]; [facility] Work Phone: Glucose Test strip (U) [Mass/Vol] Negative Normal [facility]; [facility] Work Phone: Hemoglobin Ql (U) + Abnormal Compreh ensive Internal Medicine; [facility] Work Phone: Ketones Ql (U) Negative Normal Comprehens [facility]; [facility] Work Phone: Ketones Ql (U) Negative Normal Comprehens [facility]; [facility] Work Phone: Leukocyte esterase Test strip Ql (U) Large Normal [facility]; [facility] Work Phone: Nitrite Ql (U) Negative Normal Comprehens [facility]; [facility] Work Phone: Nitrite Ql (U) Negative Normal Comprehens [facility]; [facility] Work Phone: pH (U) 6 [pH] Abnormal [facility]; [facility] Work Phone: Protein Ql (U) Negative Normal Comprehens [facility]; [facility] Work Phone: Protein Ql (U) Negative Normal Comprehens [facility]; [facility] Work Phone: Specific gravity (U) [Rel density] 1.010 1 Normal [facility]; [facility] Work Phone: Urobilinogen (24H U) [Mass/Time] Normal Normal [facility]; [facility] Work Phone: C-REACTIVE PROTEIN ([id number])Or dered By: Adhesive Bandage Machine Operator on 08-16-2015 CRP mass conc 126.9 mg/L Abnormal 0.0-4.9 Comprehensi ve Internal Medicine Work Phone: Comment on above: PATIENT NOT FASTINGP ERFORMED BY: BART [facility] Yxjsct4291 [facility] [id number] CBC (Auto) ([id number])Ordered By : Adhesive Bandage Machine Operator on 08-16-2015 Erythrocyte distribution width Ratio (RBC) 13.8 % Normal 12.3-15.4 [facility] Work Phone: Comment on above: PATIENT NOT FASTINGP ERFORMED BY: BART [facility] Nzlwjp0825 [facility] [id number] Hematocrit Volume Fraction (Bld) 39.0 % Normal 34.0-46.6 [facility] Work Phone: Comment on above: PATIENT NOT FASTINGP ERFORMED BY: CB [facility] Ftagzy3290 [facility] [id number] Hemoglobin mass conc (Bld) 13.3 g/dL Normal 11.1-15.9 [facility] Work Phone: Comment on above: PATIENT NOT FASTINGP ERFORMED BY: BART [facility] Tfdrqu6708 [facility] [id number] MCH Entitic mass (RBC) 30.4 pg Normal 26.6-33.0 Co [facility] Internal Medicine Work Phone: Comment on above: PATIENT NOT FASTINGP ERFORMED BY: BART [facility] Qafzxd6996 [facility] [id number] MCHC mass conc (RBC) 34.1 g/dL Normal 31.5-35.7 [facility] Internal Medicine Work Phone: Comment on above: PATIENT NOT FASTINGP ERFORMED BY: CB [facility] Estzsp7321 [facility] [id number] MCV Entitic volume (RBC) 89 fL Normal 79-97 [facility] Work Phone: Comment on above: PATIENT NOT FASTINGP ERFORMED BY: CB [facility] Uyubrq2080 [facility] [id number] Platelets #/vol (Bld) 252 {x10E3/uL} Normal 150-379 [facility] Work Phone: Comment on above: PATIENT NOT FASTINGP ERFORMED BY: CB [facility] Rbttia4200 [facility] [id number] Platelets (Bld) [#/Vol] 252 10*3/uL Normal 150-379 [facility]; [facility] Work Phone: Comment on above: PATIENT NOT FASTINGP ERFORMED BY: BART Gibbons6370 [address]íaz RoadDublin [place] [id number] RBC #/vol (Bld) 4.37 {x10E6/uL} Normal 3.77-5.28 Comp rehensive Internal Medicine Work Phone: Comment on above: PATIENT NOT FASTINGP ERFORMED BY: BART LabEdelmira SosaLtykoe2558 Dí[address] Roadblin [place] [id number] RBC (Bld) [#/Vol] 4.37 10*6/uL Normal 3.77-5.28 Compr ensive Internal Medicine; [facility] Work Phone: Comment on above: PATIENT NOT FASTINGP ERFORMED BY: BART Gibbons[address] [facility]in [place] [id number] WBC #/vol (Bld) 10.2 {x10E3/uL} Normal 3.4-10.8 Comp rehensive Internal Medicine Work Phone: Comment on above: PATIENT NOT FASTINGP ERFORMED BY: BART Sosalin6370 [address] [facility] [place] [id number] WBC (Bld) [#/Vol] 10.2 10*3/uL Normal 3.4-10.8 Compr ensive [facility] Medicine; [facility] Work Phone: Comment on above: PATIENT NOT FASTINGP ERFORMED BY: BART [facility] Qfsfxp2117 [address] Roadblin [place] [id number] Metabolic Panel, Comprehensi ve ([id number])Ordered By: Adhesive Bandage Machine Operator on 08-16-2015 Albumin mass conc 4.2 g/dL Normal 3.5-5.5 Compreh ensive Internal Medicine Work Phone: Comment on above: PATIENT NOT FASTINGP ERFORMED BY: BART Lab[facility] Lcxxwy0217 [address] [facility] Hospital[facility] [place] [id number] Information: [id number] Albumin/Globulin mass ratio 1.3 {ratio} Normal 1.1-2.5 [facility] Work Phone: Comment on above: PATIENT NOT FASTINGP ERFORMED BY: BART LabCoyaya GibbonsGxudft8982 [address] [facility] [id number] Information: [id number] ALP [Catalytic activity/Vol] 62 U/L Normal 39-117 [facility]; [facility] Internal Medicine Work Phone: Comment on above: PATIENT NOT FASTINGP ERFORMED BY: LabCoCommunity Medical CenterBalzbo3682 [address] [facility] [id number] Information: [id number] ALP enzyme act/vol 62 [iU]/L Normal 39-117 [facility] Internal Medicine Work Phone: Comment on above: PATIENT NOT FASTINGP ERFORMED BY: [place] [id number] [facility] [id number] Information: [id number] ALT [Catalytic activity/Vol] 13 U/L Normal 0-32 [facility]; [facility] Internal Medicine Work Phone: Comment on above: PATIENT NOT FASTINGP ERFORMED BY: LabCoLisa Ville 0835370 [address] [facility] [id number] Information: [id number] ALT enzyme act/vol 13 [iU]/L Normal 0-32 [facility] Internal Medicine Work Phone: Comment on above: PATIENT NOT FASTINGP ERFORMED BY: LabCoCommunity Medical CenterSprowd1078 [facility] [id number] Information: [id number] AST [Catalytic activity/Vol] 18 U/L Normal 0-40 [facility]; [facility] Internal Medicine Work Phone: Comment on above: PATIENT NOT FASTINGP ERFORMED BY: LabCo Cpkucx7161 [address] [facility] [id number] Information: [id number] AST enzyme act/vol 18 [iU]/L Normal 0-40 Compre hensive Internal Medicine Work Phone: Comment on above: PATIENT NOT FASTINGP ERFORMED BY: CB [facility] [address]own[address] [place] [id number] Information: [id number] Bilirubin mass conc 0.9 mg/dL Normal 0.0-1.2 Compr ensive Internal Medicine Work Phone: Comment on above: PATIENT NOT FASTINGP ERFORMED BY: CB [facility] Ysmqdy0898 Dí[address] RoadECU [facility] [id number] Information: [id number] Calcium mass conc 9.4 mg/dL Normal 8.7-10.2 Compreh [facility] Work Phone: Comment on above: PATIENT NOT FASTINGP ERFORMED BY: CB [facility] Vjniaw8951 [address] [facility] [id number] Information: [id number] Chloride molar conc 99 mmol/L Normal 97-108 Compr ensive Internal Medicine Work Phone: Comment on above: PATIENT NOT FASTINGP ERFORMED BY: CB [facility] Whrtfj5227 [address] [facility] Centerin [place] [id number] Information: [id number] CO2 molar conc 22 mmol/L Normal 18-29 Comprehens [facility] Work Phone: Comment on above: PATIENT NOT FASTINGP ERFORMED BY: CB [facility] Rfmauv9615 [address] [facility] [id number] Information: [id number] Creatinine mass conc 0.79 mg/dL Normal 0.57-1.00 Comp [facility] Work Phone: Comment on above: PATIENT NOT FASTINGP ERFORMED BY: CB [facility] Otlgol5105 [address] [facility] [id number] Information: [id number] GFR/1.73 sq M predicted among blacks CKD-EPI vol rate/area (S/P/Bld) 95 mL/min/1.73 Normal [facility] Work Phone: Comment on above: PATIENT NOT FASTINGP ERFORMED BY: BART Gibbons6370 [facility] [id number] Information: [id number],E00554 GFR/1.73 sq M predicted among non-blacks CKD-EPI vol rate/area (S/P/Bld) 83 mL/min/1.73 Normal Comprehensiv e Internal Medicine Work Phone: Comment on above: PATIENT NOT FASTINGP ERFORMED BY: BART [facility] Pjlvtw1775 [facility] [id number] Information: [id number] Globulin mass conc (S) 3.2 g/dL Normal 1.5-4.5 Co mprehensive Internal Medicine Work Phone: Comment on above: PATIENT NOT FASTINGP ERFORMED BY: BART Gutierrez Hdnfti5225 [facility] [id number] Information: [id number] Glucose mass conc 95 mg/dL Normal 65-99 Compreh ensive Internal Medicine Work Phone: Comment on above: PATIENT NOT FASTINGP ERFORMED BY: BART OseiCo Ehtwhn0750 [facility] [id number] Information: [id number] Potassium molar conc 4.9 mmol/L Normal 3.5-5.2 Comp rehensive Internal Medicine Work Phone: Comment on above: PATIENT NOT FASTINGP ERFORMED BY: BART Whitley Pcwbdm9955 [facility] [id number] Information: [id number] Protein mass conc 7.4 g/dL Normal 6.0-8.5 Compreh ensive Internal Medicine Work Phone: Comment on above: PATIENT NOT FASTINGP ERFORMED BY: BART Whitley Jvrwba9500 [facility] [id number] Information: [id number] Sodium molar conc 140 mmol/L Normal 134-144 Compreh ensive Internal Medicine Work Phone: Comment on above: PATIENT NOT FASTINGP ERFORMED BY: [facility] Otgwqu7963 [address] [facility] [id number] Information: [id number] Urea nitrogen mass conc 7 mg/dL Normal 6-24 [facility] Work Phone: Comment on above: PATIENT NOT FASTINGP ERFORMED BY: Lab[facility] Keacjy0330 [facility] [id number] Information: [id number],[id number] Urea nitrogen/Creatinine mass ratio 9 mg/mg Normal 9-23 [facility] Work Phone: Comment on above: PATIENT NOT FASTINGP ERFORMED BY: [facility] Eozoqz3853 [facility] [id number] Information: [id number] Sed Rate Erythrocyte (12045) Ordered By: Adhesive Bandage Machine Operator on 08-16-2015 ESR Velocity (Bld) 20 mm/h Normal 0-40 Compre [facility] Internal Medicine Work Phone: Comment on above: PATIENT NOT FASTINGP ERFORMED BY: LabCoCommunity Medical CenterMxvyhi5213 [facility] [id number] CBC W/Diff, AutomatedOrdered By: Adhesive Bandage Machine Operator on 12-07-2014 Absolute Neut 4.0 {X10_3/uL} Normal 2.0-7.7 Compreh [facility] Internal Medicine Work Phone: Comment on above: Test performed at:[facility] [address] [place] [address] Basophils/100 WBC (Bld) 0.4 % Normal 0-1 [facility] Work Phone: Comment on above: Test performed at:[facility] [address] [place] [address] Eosinophils/100 WBC (Bld) 1.7 % Normal 0-5 [facility] Work Phone: Comment on above: Test performed at:[facility] [address] [place] [address] Erythrocyte distribution width Ratio (RBC) 13.9 % Normal 11.6-14.6 [facility] Work Phone: Comment on above: Test performed at:[facility] [address]tezg[address] [place] [address] Hematocrit Volume Fraction (Bld) 39.3 % Normal 37-47 [facility] Work Phone: Comment on above: Test performed at:[facility] [address]grxhi[address] [place] [address] Hemoglobin mass conc (Bld) 12.9 g/dL Normal 12.0-15.0 [facility] Work Phone: Comment on above: Test performed at:[facility] [address] [place] [address] IM GRAN % 0.100 % Normal 0.0-0.9 [facility] Work Phone: Comment on above: IG% - Immature Granu locytes (promyelocytes, myelocytes andmetamyelocytes) > 1% indicates that a LEFT SHIFT is Present. Test performed at:[facility] [address]ufai[address] [place] [address] Lymphocytes #/vol (Bld) 2.51 {X10_3/ul} Normal 0.83-4.51 [facility] Work Phone: Comment on above: Test performed at:[facility] [address]xfuly[address] [place] [address] Lymphocytes/100 WBC (Bld) 35.0 % Normal 19-41 [facility] Work Phone: Comment on above: Test performed at:[facility] [address]gyrmbewe[address] [place] [address] MCH Entitic mass (RBC) 30.5 pg Normal 27.0-32.0 [facility] Internal Medicine Work Phone: Comment on above: Test performed at:[facility] Fcpgosvnmq[address] [place] [address] MCHC mass conc (RBC) 32.8 {g/gl} Normal 32-36 Com prehensive Internal Medicine Work Phone: Comment on above: Test performed at:[facility] [address] [place] [address] MCV Entitic volume (RBC) 92.9 fL Normal 81-99 [facility] Work Phone: Comment on above: Test performed at:[facility] [address] [place] [address] Monocytes/100 WBC (Bld) 6.4 % Normal 0-10 [facility] Work Phone: Comment on above: Test performed at:[facility] T[address] [place] [address] Neutrophils/100 WBC (Bld) 56.4 % Normal 47-70 [facility] Work Phone: Comment on above: Test performed at:[facility] [address] [place] [address] Platelet mean volume Entitic volume (Bld) 8.8 fL Normal 6.2-12.0 Comprehensi ve Internal Medicine Work Phone: Comment on above: Test performed at:[facility] [address] [place] [address] Platelets #/vol (Bld) 248 10*3/uL Normal 150-450 Co [facility] Work Phone: Comment on above: Test performed at:[facility] [address] [place] [address] RBC #/vol (Bld) 4.23 {M/mm3} Normal 4.2-5.4 Compreh ensive Internal Medicine Work Phone: Comment on above: Test performed at:[facility] [address] [place] [address] RDW SD 47.1 fL Abnormal 35.1-43.9 [facility] Work Phone: Comment on above: Test performed at:[facility] [address]uebbl[address] [place] [address] WBC #/vol (Bld) 7.2 10*3/uL Normal 4.4-11.0 Comprehe nsive Internal Medicine Work Phone: Comment on above: Test performed at:[facility] [address]kr[address] [place] [address] CRPOrdered By: System Manage r on 12-07-2014 CRP mass conc 6.46 mg/L Abnormal 0.0-3.0 Comprehensi ve Internal Medicine Work Phone: Comment on above: C-Reactive Protein ( CRP) provides useful information for thediagnosis, therapy and monitoring of inflammatory processesand associated diseases. For the evaluation of Relative Riskfor Cardiovascular Disease, a High Sensitivity CRP (HSCRP)should be ordered. Test performed at:[facility] [address] [place] [address] Comprehensive Metabolic Prof ilOrdered By: Adhesive Bandage Machine Operator on 12-07-2014 Comprehensive metabolic 2000 panel 24 U/L Normal 12-78 Comprehensi ve Internal Medicine Work Phone: Comment on above: Test performed at:[facility] [address] [place] [address] Comprehensive metabolic 2000 panel 22 U/L Normal 15-37 Comprehensi ve Internal Medicine Work Phone: Comment on above: Test performed at:[facility] [address]cfim[address] [place] [address] Comprehensive metabolic 2000 panel 9.0 mg/dL Normal 8.5-10.1 Comprehensi ve Internal Medicine Work Phone: Comment on above: Test performed at:[facility] [address] [place] [address] Comprehensive metabolic 2000 panel 0.9 {RATIO} Normal 0.9-2.4 Comprehensi ve Internal Medicine Work Phone: Comment on above: Test performed at:[facility] [address] [place] [address] Comprehensive metabolic 2000 panel 3.9 g/dL Abnormal 2.3-3.5 Comprehensi ve Internal Medicine Work Phone: Comment on above: Test performed at:[facility] [address] [place] [address] Comprehensive metabolic 2000 panel 3.7 g/dL Normal 3.4-5.0 Comprehensi ve Internal Medicine Work Phone: Comment on above: Test performed at:[facility] [address] [place] [address] Comprehensive metabolic 2000 panel 7.6 g/dL Normal 6.4-8.2 Comprehensi ve Internal Medicine Work Phone: Comment on above: Test performed at:[facility] [address] [place] [address] Comprehensive metabolic 2000 panel 19.0 {RATIO} Normal 10-20 Comprehensi ve Internal Medicine Work Phone: Comment on above: Test performed at:[facility] [address]ajits[address] [place] [address] Comprehensive metabolic 2000 panel 137 mL/min Normal Comprehensi ve Internal Medicine Work Phone: Comment on above: Test performed at:[facility] [address] [place] [address] Comprehensive metabolic 2000 panel 113 mL/min Normal Comprehensi ve Internal Medicine Work Phone: Comment on above: Test performed at:[facility] [address] [place] [address] Comprehensive metabolic 2000 panel 0.58 mg/dL Normal 0.55-1.20 Comprehensi ve Internal Medicine Work Phone: Comment on above: Please note revised CREATININE reference range qwafslybb00/22/2015. Test performed at:[facility] [address] [place] [address] Comprehensive metabolic 2000 panel 11 mg/dL Normal 7-18 Comprehensi ve Internal Medicine Work Phone: Comment on above: Test performed at:[facility] [address] [place] [address] Comprehensive metabolic 2000 panel 76 mg/dL Normal 70-110 Comprehensi ve Internal Medicine Work Phone: Comment on above: Test performed at:[facility] [address] [place] [address] Comprehensive metabolic 2000 panel 65 U/L Normal 50-136 Comprehensi ve Internal Medicine Work Phone: Comment on above: Test performed at:[facility] [address] [place] [address] Comprehensive metabolic 2000 panel 6 1 Normal 5-15 Comprehensi ve Internal Medicine Work Phone: Comment on above: Test performed at:[facility] [address] [place] [address] Comprehensive metabolic 2000 panel 29.0 mmol/L Normal 21.0-32.0 Comprehensi ve Internal Medicine Work Phone: Comment on above: Test performed at:[facility] [address] [place] [address] Comprehensive metabolic 2000 panel 104 mmol/L Normal 98-107 Comprehensi ve Internal Medicine Work Phone: Comment on above: Test performed at:[facility] [address] [place] [address] Comprehensive metabolic 2000 panel 3.7 mmol/L Normal 3.5-5.1 Comprehensi ve Internal Medicine Work Phone: Comment on above: Test performed at:[facility] [address] [place] [address] Comprehensive metabolic 2000 panel 139 mmol/L Normal 136-145 Comprehensi ve Internal Medicine Work Phone: Comment on above: Test performed at:[facility] [address] [place] [address] Comprehensive metabolic 2000 panel 0.70 mg/dL Normal 0.20-1.00 Comprehensi ve Internal Medicine Work Phone: Comment on above: Test performed at:[facility] [address] [place] [address] URINE PATRICK CULTURE-DARLINE COL C OUNT (37940)Ordered By: Adhesive Bandage Machine Operator on 12-07-2014 Bacteria identified Cx Nom (U) Escherichia coli Abnormal [facility] Work Phone: Comment on above: Greater than 100,000 colony forming units per mL PATIENT NOT FASTINGP ERFORMED BY: BART [facility]inLex[facility] [id number] Information: SRC: URINE - CLEAN CATCH Bacteria identified Cx Nom (U) Final report Abnormal [facility] Work Phone: Comment on above: PATIENT NOT FASTINGP ERFORMED BY: BART Yashi Iylaon1403ZIPDIGSCommunity Health [id number] Information: SRC: URINE - CLEAN CATCH Other Antibiotic [facility] prehensive Internal Medicine Work Phone: Comment on above: S = Susceptible; I = Intermediate; R = Resistant P = Positive; N = Negative MICS are expressed in micrograms per mL Antibiotic RSLT#1 RSLT#2 RSLT#3 RSLT#4Amoxicillin/Clavulanic Acid SAmpicillin SCefepime SCeftriaxone SCefuroxime SCephalothin SCiprofloxacin SErtapenem SGentamicin SImipenem SLevofloxacin SNitrofurantoin SPiperacillin STetracycline STobramycin STrimethoprim/Sulfa S PATIENT NOT FASTINGP ERFORMED BY: BART [facility] [id number] Díaz uTaPCommunity Health [id number] Information: SRC: URINE - CLEAN CATCH Urinalysis, Office ([id number])Or dered By: Naina Perez on 12-07-2014 Bilirubin Ql (U) Negative Normal Comprehe nsive Internal Medicine Work Phone: Glucose Test strip mass conc (U) Negative Normal [facility] Work Phone: Hemoglobin Ql (U) Hemolyzed Small Normal Co mprehensive [facility] Work Phone: Ketones Ql (U) Negative Normal Comprehens keanu Internal Medicine Work Phone: Leukocyte esterase Test strip Ql (U) Negative Normal [facility] Work Phone: Nitrite Ql (U) Negative Normal Comprehens keanu Internal Medicine Work Phone: pH (U) 5.0 [pH] Normal [facility] Work Phone: Protein Ql (U) Negative Normal Comprehens keanu Internal Medicine Work Phone: Specific gravity Relative Density (U) 1.010 1 Normal Comprehensi ve Internal Medicine Work Phone: Urobilinogen mass/time (24H U) 2 mg/dL Normal [facility] Work Phone: Urinalysis, Office ([id number])on 12-07-2014 Bilirubin Ql (U) Negative Normal Comprehe nsive Internal Medicine; [facility] Work Phone: Glucose Test strip (U) [Mass/Vol] Negative Normal [facility]; [facility] Work Phone: Ketones Ql (U) Negative Normal Comprehens keanu Internal Medicine; [facility] Work Phone: Leukocyte esterase Test strip Ql (U) Negative Normal [facility]; [facility] Work Phone: Nitrite Ql (U) Negative Normal Comprehens keanu Internal Medicine; [facility] Work Phone: Protein Ql (U) Negative Normal Comprehens keanu [facility]; [facility] Work Phone: AMYOrdered By: System Manage r on 01-18-2014 LADARIUS 44 U/L Normal 25-115 [facility] Work Phone: CBCDOrdered By: System Manag er on 01-18-2014 Erythrocyte distribution width Ratio (RBC) 13.8 % Normal 11.6-14.6 [facility] Work Phone: Hematocrit Volume Fraction (Bld) 41.2 % Normal 37-47 [facility] Work Phone: Hemoglobin mass conc (Bld) 13.6 g/dL Normal 12.0-15.0 [facility] Work Phone: MCH Entitic mass (RBC) 30.6 pg Normal 27.0-32.0 Co mprehensive [facility] Medicine Work Phone: MCHC mass conc (RBC) 33.0 {g/gl} Normal 32-36 Com prehensive Internal Medicine Work Phone: MCV Entitic volume (RBC) 92.8 fL Normal 81-99 [facility] Work Phone: Platelet mean volume Entitic volume (Bld) 8.8 fL Normal 6.2-12.0 Comprehensi ve Internal Medicine Work Phone: Platelets #/vol (Bld) 206 10*3/uL Normal 150-450 Co mprehensive [facility] Work Phone: RBC #/vol (Bld) 4.44 {M/mm3} Normal 4.2-5.4 Compreh ensive Internal Medicine Work Phone: WBC #/vol (Bld) 7.4 10*3/uL Normal 4.4-11.0 Comprehe nsive Internal Medicine Work Phone: CBCD 0.4 % Normal 0-1 [facility] Work Phone: CBCD 0.5 % Normal 0-5 [facility] Work Phone: CBCD 7.8 % Normal 0-10 [facility] Work Phone: CBCD 37.4 % Normal 19-41 [facility] Work Phone: CBCD 53.9 % Normal 47-70 [facility] Work Phone: CBCD 46.4 fL Abnormal 35.1-43.9 [facility] Work Phone: CBCD 2.75 {X10_3/ul} Normal 0.83-4.51 [facility] Internal Medicine Work Phone: CBCD 4.0 {X10_3/uL} Normal 2.0-7.7 [facility] Internal Medicine Work Phone: CBCD 0.000 % Normal 0.0-0.9 [facility] Internal Medicine Work Phone: Comment on above: IG% - Immature Granu locytes (promyelocytes, myelocytes andmetamyelocytes) > 1% indicates that a LEFT SHIFT is Present. CMPOrdered By: System Manage r on 01-18-2014 Albumin mass conc 3.9 g/dL Normal 3.4-5.0 [facility] Internal Medicine Work Phone: Albumin/Globulin mass ratio 0.9 {RATIO} Normal 0.9-2.4 [facility] Internal Medicine Work Phone: ALP enzyme act/vol 70 U/L Normal 45-117 [facility] Internal Medicine Work Phone: ALT enzyme act/vol 24 U/L Normal 12-78 [facility] Internal Medicine Work Phone: AST enzyme act/vol 13 U/L Abnormal 15-37 [facility] Internal Medicine Work Phone: Bilirubin mass conc 0.50 mg/dL Normal 0.00-1.00 [facility] Internal Medicine Work Phone: Calcium mass conc 9.5 mg/dL Normal 8.5-10.1 [facility] Internal Medicine Work Phone: Chloride molar conc 102 mmol/L Normal 98-107 [facility] Internal Medicine Work Phone: CO2 molar conc 30.0 mmol/L Normal 21.0-32.0 [facility] Internal Medicine Work Phone: Creatinine mass conc 1.0 mg/dL Normal 0.6-1.0 [facility] Internal Medicine Work Phone: GFR/1.73 sq M predicted among non-blacks MDRD vol rate/area (S/P/Bld) 61 mL/min/{1.73_m2} Normal Comprehe nsive Internal Medicine Work Phone: Globulin mass conc (S) 4.5 g/dL Abnormal 2.7-4.2 Co mprehensive [facility] Medicine Work Phone: Glucose mass conc 95 mg/dL Normal 70-110 Compreh ensive Internal Medicine Work Phone: Potassium molar conc 3.9 mmol/L Normal 3.5-5.1 Comp rehensive Internal Medicine Work Phone: Sodium molar conc 136 mmol/L Normal 136-145 Compreh ensive Internal Medicine Work Phone: Urea nitrogen mass conc 11 mg/dL Normal 7-18 [facility] Work Phone: Urea nitrogen/Creatinine mass ratio 11.0 {RATIO} Normal 10-20 [facility] Work Phone: CMP 8.4 g/dL Abnormal 6.4-8.2 [facility] Work Phone: CMP 74 mL/min Normal [facility] Work Phone: CMP 4 1 Abnormal 5-15 [facility] Work Phone: CUUROrdered By: System Manag er on 01-18-2014 CUUR See Note Normal [facility] Work Phone: Comment on above: ORGANISM 1: Mixed Gr am Positive OrganismsColony Count <1000MIX CONTAM Mixed Contaminants. Submit new specimen if indicated. LIPASEOrdered By: System Man ager on 01-18-2014 LIPASE 185 U/L Normal 70-290 [facility] Work Phone: URINE PATRICK CULTURE-IDENTIFICA [place] ([id number])Ordered By: Adhesive Bandage Machine Operator on 01-18-2014 Bacteria identified Cx Nom (U) MUG Normal [facility] Work Phone: Comment on above: Mixed urogenital vale ra3,000 Colonies/mL PATIENT NOT FASTINGP ERFORMED BY: BART LabHealthTapyaya GibbonsBvoewn5483 [facility] [id number] Information: [id number] Bacteria identified Cx Nom (U) Final report Normal [facility] Work Phone: Comment on above: PATIENT NOT FASTINGP ERFORMED BY: [facility] [id number] Information: [id number] Urinalysis, Office ([id number])Or dered By: Eva Garza on 01-18-2014 Bilirubin Ql (U) Negative Normal Comprehe nsive Internal Medicine Work Phone: Glucose Test strip mass conc (U) Negative Normal [facility] Work Phone: Hemoglobin Ql (U) Non Hemolyzed Trace Normal [facility] Work Phone: Ketones Ql (U) Negative Normal Comprehens keanu Internal Medicine Work Phone: Leukocyte esterase Test strip Ql (U) Negative Normal [facility] Work Phone: Nitrite Ql (U) Negative Normal Comprehens keanu Internal Medicine Work Phone: pH (U) 7 [pH] Normal [facility] Work Phone: Protein Ql (U) Negative Normal Comprehens keanu Internal Medicine Work Phone: Specific gravity Relative Density (U) 1.010 1 Normal Comprehensi ve Internal Medicine Work Phone: Urobilinogen mass/time (24H U) Normal Normal [facility] Work Phone: Urinalysis, Office ([id number])on 01-18-2014 Bilirubin Ql (U) Negative Normal Comprehe nsive Internal Medicine; [facility] Work Phone: Glucose Test strip (U) [Mass/Vol] Negative Normal [facility]; [facility] Work Phone: Ketones Ql (U) Negative Normal Comprehens [facility]anu [facility]; [facility] Work Phone: Leukocyte esterase Test strip Ql (U) Negative Normal [facility]; [facility] Work Phone: Nitrite Ql (U) Negative Normal Comprehens [facility]anu [facility]; [facility] Work Phone: Protein Ql (U) Negative Normal Comprehens keanu [facility]; [facility] Work Phone: ABDOMEN/PELVIS WITH CONTRAST Ordered By: Adhesive Bandage Machine Operator on 03-10-2009 ABDOMEN/PELVIS WITH CONTRAST See Note Normal [facility] Work Phone: Comment on above: Exam Number: [id number] CLINICAL:Right abdominal pain and diarrhea. CT ABDOMEN WITH CONTRAST COMPARISON:None. TECHNIQUE:Transaxial imaging was performed post contrast administration. The examination was performed with intravenous administration of 100 ml of Isovue 300 contrast material. Coronal and sagittal reconstructions are provided. FINDINGS:The visualized lower lungs are clear. The visualized heart is normal in size, morphology and position. There is a 1 cm simple cyst in the caudate lobe of the liver and several other smaller scattered hepatic cysts. Liver is otherwise unremarkable. The spleen is normal size and contour with normal enhancement. Normal gallbladder. Normal visualized intra and extra hepatic bile ducts. There is a 1 cm cyst in the posterior head of the pancreas. The pancreas is otherwise unremarkable. Normal bilateral adrenal glands. The right kidney is normal in size, location and morphology. The visualized bilateral ureters are normal without a demonstrated hydroureter or ureteral calculus. The left kidney is normal in size, location and morphology. The visualized bilateral ureters are normal without a demonstrated hydroureter or ureteral calculus. There are several small simple cysts bilaterally. Normal retroperitoneum without lymphadenopathy or a mass lesion. Normal visualized distal esophagus and stomach. Normal visualized small intestine, without an obstruction or bowel wall edema. Normal visualized large intestine, without obstruction, diverticulosis, diverticulitis, or pericolonic inflammation. A normal appendix is identified. There is no peritoneal fluid. There is no demonstrated free peritoneal or extraluminal gas. There is a tortuous but otherwise unremarkable abdominal aorta. Normal caliber of the inferior vena cava. Normal visualized osseous and soft tissue structures in the abdominal region. CT PELVIS WITH CONTRAST COMPARISON:None. TECHNIQUE:Transaxial imaging was performed post contrast administration. The examination was performed with intravenous administration of 100 ml of Isovue 300 contrast material. Sagittal and coronal reconstructions are included. FINDINGS:Normal bladder without demonstrated mass, wall thickening or calculus. The uterus is normal in size and contour. Normal adnexal regions without a demonstrated ovarian or adnexal mass lesion. Status post tubal ligation. There is no demonstrated pelvic fluid collection. There is no demonstrated pelvic or inguinal lymphadenopathy. There is a 3-cm pre-sacral perineural cyst on the left and at 1 cm perineural cyst on the right. Normal loops of small intestines visualized within the pelvis. The rectosigmoid and sigmoid colons are nondistended and appear to have mild mucosal thickening or redundant mucosa. There are no other acute bowel related findings. Patient has no evidence of diverticulosis. There is a midline lower abdominal wall herniation with a hernia mouth of 3 cm. The hernia contains substantial mesenteric fat without inclusion of bowel loops at this time. Normal visualized osseous and soft tissue structures of the pelvis. IMPRESSION:Few benign simple cysts of the liver and kidneys. 1 cm cyst of the pancreatic head. Lower abdominal pelvic wall midline hernia with a hernia mouth of 3 cm containing substantial mesenteric fat without bowel inclusion. Mild thickening or redundancy of the mucosa of the rectosigmoid and sigmoid colon. No other acute bowel related findings. A normal appendix is identified. There is no evidence of diverticulosis or diverticulitis. Perineural presacral cysts, 3 cm on the left and 1 cm on the right. Status post tubal ligation. Reported By: Sai HUGHES DIFF TOXINS A&B N EGATIVE SHIGA-TOXIN 1 & 2 SH IGA TOXIN 1 AND SHIGA TOXIN 2 NOT DETECTED No Salmonella, Shige lla, Yersinia or Campylobacter isolated.No significant amount of Staphylococcus aureusor yeast-like organisms isolated. OCCULT BLOOD Negativ e FECAL WBCs 3+ OVA AND PARASITES EX AM, ROUTINE These results were obtained using wet preparation(s) and trichrome stained smear. This test does not include testing for Crytosporidium parvum, Cyclospora, or Microsporidia. TESTING PERFORMED AT [facility]. ORIGINAL REPORT ON FILE IN LAB CONTAINS ADDITIONAL TEST SITE INFORMATION. OVA/ PARASITES EXAM NO OVA, CYSTS, OR PARASITES FOUND. Result: NORM C+C CBCD,SMEAR DIFFOrdered By: Stephanie nichols And Drying Supervisor Cooking Casing on 03-10-2009 Basophils/100 WBC (Bld) 1 % Normal 0-1 [facility] Work Phone: Erythrocyte distribution width Ratio (RBC) 13.3 % Normal 11.6-14.6 [facility] Work Phone: Hematocrit Volume Fraction (Bld) 38.4 % Normal 37-47 [facility] Work Phone: Hemoglobin mass conc (Bld) 13.2 g/dL Normal 12.0-16.0 [facility] Work Phone: Lymphocytes/100 WBC (Bld) 38 % Normal 19-41 [facility] Work Phone: MCH Entitic mass (RBC) 31.6 pg Normal 27.0-32.0 [facility] Work Phone: MCHC mass conc (RBC) 34.4 g/dL Normal 32-36 Comp [facility] Internal Medicine Work Phone: MCV Entitic volume (RBC) 91.7 fL Normal 81-99 [facility] Work Phone: Monocytes/100 WBC (Bld) 3 % Normal 0-10 [facility] Internal Medicine Work Phone: Platelets #/vol (Bld) 272 10*3/uL Normal 150-450 Co [facility] Work Phone: Platelets #/vol (Bld) SeeNote Normal Com [facility] Work Phone: Comment on above: Result: ADEQUATE RBC #/vol (Bld) 4.19 {M/mm3} Abnormal 4.2-5.4 Compreh ensive Internal Medicine Work Phone: WBC #/vol (Bld) 7.8 10*3/uL Normal 4.4-11.0 Comprehe nsive Internal Medicine Work Phone: CBCD,SMEAR DIFF 100 1 Normal Comprehen [facility] Internal Medicine Work Phone: CBCD,SMEAR DIFF 7 % Abnormal 0-5 Comprehen [facility] Internal Medicine Work Phone: CBCD,SMEAR DIFF 51 % Normal 47-70 Comprehen [facility] Internal Medicine Work Phone: LQD PAP [phone] By: Jake stem And Drying Supervisor Cooking Casing on 11-10-2008 LQD PAP [phone] . Normal Comprehens keanu Internal Medicine Work Phone: Comment on above: CYTOLOGY INFORMATION :- CLINICAL INFORMATION: - DATE LMP/MENOPAUSE: LMP- COLLECTION VIAL: Thin Prep Vial- BENCH INSPECTOR SOURCE: CERVICAL/ENDOCERVICAL- COLLECTION TECHNIQUE: BRUSH/SPATULA LQD PAP [phone] Comment Normal Comprehens keanu Internal Medicine Work Phone: Comment on above: The HPV DNA reflex c she were not met with this specimenresult therefore, no HPV testing was performed. .Performed At: [facility] [id number] CYTOLOGY INFORMATION :- CLINICAL INFORMATION: - DATE LMP/MENOPAUSE: LMP- COLLECTION VIAL: Thin Prep Vial- BENCH INSPECTOR SOURCE: CERVICAL/ENDOCERVICAL- COLLECTION TECHNIQUE: BRUSH/SPATULA The Pap smear is a s creening test designed to aid in thedetection of premalignant and malignant conditions of theuterine cervix. It is not a diagnostic procedure andshould not be used as the sole means of detecting cervicalcancer. Both false-positive and false-negative reports dooccur. . NEGATIVE FOR INTRAEP ITHELIAL LESION AND MALIGNANCY. Angelica Perez, Cytote chnologist (ASCP) Satisfactory for luis armando luation. Endocervical and/or squamous metaplasticcells (endocervical component) are present. Amylase (58057)Ordered By: Goyo Rogers on 10-04-2008 Amylase enzyme act/vol 52 U/L Normal 31-124 Co mprehensive Internal Medicine Work Phone: Comment on above: PATIENT NOT FASTINGP ERFORMED BY: BART [employer] [facility] [id number] CBC WITH MANUAL DIFF ([id number]) Ordered By: Rose Rogers on 10-04-2008 Basophils #/vol (Bld) 0.0 {x10E3/uL} Normal 0.0-0.2 [facility] Work Phone: Comment on above: PATIENT NOT FASTINGC linical Information: ADD DRAW FEE [id number] ADD J [id number] PERFORMED BY: BART [employer] NetworksDublin [place] [id number] Basophils (Bld) [#/Vol] 0.0 10*3/uL Normal 0.0-0.2 [facility]; [facility] Work Phone: Comment on above: PATIENT NOT FASTINGC linical Information: ADD DRAW FEE [id number] ADD J [id number] PERFORMED BY: BART [address] [id number] Basophils/100 WBC (Bld) 0 % Normal 0-3 [facility] Work Phone: Comment on above: PATIENT NOT FASTINGC linical Information: ADD DRAW FEE [id number] ADD J 36098 PERFORMED BY: BART [address] [id number] Eosinophils #/vol (Bld) 0.0 {x10E3/uL} Normal 0.0-0.4 [facility] Work Phone: Comment on above: PATIENT NOT FASTINGC linical Information: ADD DRAW FEE [id number] ADD J 62793 PERFORMED BY: [address] [id number] Eosinophils (Bld) [#/Vol] 0.0 10*3/uL Normal 0.0-0.4 [facility]; [facility] Work Phone: Comment on above: PATIENT NOT FASTINGC linical Information: ADD DRAW FEE [id number] ADD J 95947 PERFORMED BY: BART [address] [id number] Eosinophils/100 WBC (Bld) 0 % Normal 0-7 [facility] Work Phone: Comment on above: PATIENT NOT FASTINGC linical Information: ADD DRAW FEE [id number] ADD J [id number] PERFORMED BY: [address] [id number] Erythrocyte distribution width Ratio (RBC) 13.9 % Normal 11.7-15.0 [facility] Work Phone: Comment on above: PATIENT NOT FASTINGC linical Information: ADD DRAW FEE [id number] ADD J 13703 PERFORMED BY: [facility]6370 [facility] [id number] Hematocrit Volume Fraction (Bld) 41.0 % Normal 34.0-44.0 [facility] Work Phone: Comment on above: PATIENT NOT FASTINGC linical Information: ADD DRAW FEE [id number] ADD J 61138 PERFORMED BY: BART [place] [id number] [facility] [id number] Hemoglobin mass conc (Bld) 13.9 g/dL Normal 11.5-15.0 [facility] Work Phone: Comment on above: PATIENT NOT FASTINGC linical Information: ADD DRAW FEE [id number] ADD J [id number] PERFORMED BY: BART [employer] [id number] Lymphocytes #/vol (Bld) 1.4 {x10E3/uL} Normal 0.7-4.5 [facility] Work Phone: Comment on above: PATIENT NOT FASTINGC linical Information: ADD DRAW FEE [id number] ADD J 20734 PERFORMED BY: BART [employer] [facility] [place]igTrev[place] 7082470 [facility] [id number] Lymphocytes (Bld) [#/Vol] 1.4 10*3/uL Normal 0.7-4.5 [facility]; [facility] Work Phone: Comment on above: PATIENT NOT FASTINGC linical Information: ADD DRAW FEE [id number] ADD J 97270 PERFORMED BY: BART [employer] [facility] CigTrev[place] 7082470 [facility] [id number] Lymphocytes/100 WBC (Bld) 21 % Normal 14-46 [facility] Work Phone: Comment on above: PATIENT NOT FASTINGC linical Information: ADD DRAW FEE [id number] ADD J 67596 PERFORMED BY: BART [employer] [place]igT[place] 7082470 [facility] [id number] MCH Entitic mass (RBC) 31.8 pg Normal 27.0-34.0 [facility] Internal Medicine Work Phone: Comment on above: PATIENT NOT FASTINGC linical Information: ADD DRAW FEE [id number] ADD J 21360 PERFORMED BY: [facility]6370 [facility] [id number] MCHC mass conc (RBC) 33.9 g/dL Normal 32.0-36.0 [facility] Internal Medicine Work Phone: Comment on above: PATIENT NOT FASTINGC linical Information: ADD DRAW FEE 115004 ADD J 66259 PERFORMED BY: [place] [id number] [facility] [id number] MCV Entitic volume (RBC) 94 fL Normal 80-98 [facility] Work Phone: Comment on above: PATIENT NOT FASTINGC linical Information: ADD DRAW FEE [id number] ADD J 72171 PERFORMED BY: [address] [id number] Monocytes #/vol (Bld) 0.4 {x10E3/uL} Normal 0.1-1.0 [facility] Work Phone: Comment on above: PATIENT NOT FASTINGC linical Information: ADD DRAW FEE [id number] ADD J 36591 PERFORMED BY: [place] [id number] [facility] [id number] Monocytes (Bld) [#/Vol] 0.4 10*3/uL Normal 0.1-1.0 [facility]; [facility] Work Phone: Comment on above: PATIENT NOT FASTINGC linical Information: ADD DRAW FEE [id number] ADD J [id number] PERFORMED BY: [place] [id number] [facility] [id number] Monocytes/100 WBC (Bld) 6 % Normal 4-13 [facility] Work Phone: Comment on above: PATIENT NOT FASTINGC linical Information: ADD DRAW FEE [id number] ADD J [id number] PERFORMED BY: [place] [id number] [facility] [id number] Neutrophils #/vol (Bld) 4.8 {x10E3/uL} Normal 1.8-7.8 [facility] Work Phone: Comment on above: PATIENT NOT FASTINGC linical Information: ADD DRAW FEE [id number] ADD J 30923 PERFORMED BY: [facility] [id number] Díaz [facility] [id number] Neutrophils (Bld) [#/Vol] 4.8 10*3/uL Normal 1.8-7.8 [facility]; [facility] Work Phone: Comment on above: PATIENT NOT FASTINGC linical Information: ADD DRAW FEE [id number] ADD J [id number] PERFORMED BY: [facility] [id number] Díaz [facility] [id number] Neutrophils/100 WBC (Bld) 73 % Normal 40-74 [facility] Work Phone: Comment on above: PATIENT NOT FASTINGC linical Information: ADD DRAW FEE [id number] ADD J [id number] PERFORMED BY: BART [facility] Tpirqw2791 [facility] [id number] Platelets #/vol (Bld) 237 {x10E3/uL} Normal 140-415 [facility] Work Phone: Comment on above: Please note refere nce interval change PATIENT NOT FASTINGC linical Information: ADD DRAW FEE [id number] ADD J 20903 PERFORMED BY: [facility] Joybas1627 [facility] [id number] Platelets (Bld) [#/Vol] 237 10*3/uL Normal 140-415 [facility]; [facility] Work Phone: Comment on above: Please note refere nce interval change PATIENT NOT FASTINGC linical Information: ADD DRAW FEE [id number] ADD J 78486 PERFORMED BY: [facility]6370 [facility] [id number] RBC #/vol (Bld) 4.36 {x10E6/uL} Normal 3.80-5.10 Comp [facility] Internal Medicine Work Phone: Comment on above: PATIENT NOT FASTINGC linical Information: ADD DRAW FEE 175403 ADD J 82965 PERFORMED BY: [facility]6370 [facility] [id number] RBC (Bld) [#/Vol] 4.36 10*6/uL Normal 3.80-5.10 [facility]ensive Internal Medicine; [facility] Work Phone: Comment on above: PATIENT NOT FASTINGC linical Information: ADD DRAW FEE [id number] ADD J 77468 PERFORMED BY: BART [place] Phsfij5289 [facility] [id number] WBC #/vol (Bld) 6.6 {x10E3/uL} Normal 4.0-10.5 [facility]ensive Internal Medicine Work Phone: Comment on above: PATIENT NOT FASTINGC linical Information: ADD DRAW FEE [id number] ADD J [id number] PERFORMED BY: BART [address] [id number] WBC (Bld) [#/Vol] 6.6 10*3/uL Normal 4.0-10.5 Compre [facility] Internal Medicine; [facility] Work Phone: Comment on above: PATIENT NOT FASTINGC linical Information: ADD DRAW FEE [id number] ADD J [id number] PERFORMED BY: BART Ose[address] [id number] Lipase ([id number])Ordered By: Oleksandr Rogers on 10-04-2008 Lipase enzyme act/vol 44 U/L Normal 0-59 [facility] Internal Medicine Work Phone: Comment on above: PATIENT NOT FASTINGP ERFORMED BY: BART LabHenry [facility]6370 [facility] [id number] METABOLIC PANEL, COMPREHENSI VE (04430)Ordered By: Rose Rogers on 10-04-2008 Albumin mass conc 4.5 g/dL Normal 3.5-5.5 [facility] Internal Medicine Work Phone: Comment on above: PATIENT NOT FASTINGP ERFORMED BY: BART LabCoCommunity Medical CenterMjpfve7632 [facility] [id number] Albumin/Globulin mass ratio 1.4 {ratio} Normal 1.1-2.5 [facility] Work Phone: Comment on above: PATIENT NOT FASTINGP ERFORMED BY: BART LabTrevor Ville 7082470 [facility] [id number] ALP [Catalytic activity/Vol] 75 U/L Normal 25-150 [facility]; [facility] Work Phone: Comment on above: PATIENT NOT FASTINGP ERFORMED BY: CB [facility] Ulvnle2582 Díaz RoadDublin [place] [id number] ALP enzyme act/vol 75 [iU]/L Normal 25-150 [facility] Internal Medicine Work Phone: Comment on above: PATIENT NOT FASTINGP ERFORMED BY: CB [facility] Kbzipn8264 Díaz RoadDublin [place] [id number] ALT [Catalytic activity/Vol] 17 U/L Normal 0-40 [facility] Internal [facility]; [facility] Internal Medicine Work Phone: Comment on above: PATIENT NOT FASTINGP ERFORMED BY: CB [facility] Sktgol8835 Díaz RoadDublin [place] [id number] ALT enzyme act/vol 17 [iU]/L Normal 0-40 [facility] Internal Medicine Work Phone: Comment on above: PATIENT NOT FASTINGP ERFORMED BY: CB [facility] Lbalei7791 Díaz RoadDublin [place] [id number] AST [Catalytic activity/Vol] 16 U/L Normal 0-40 [facility]; [facility] Internal Medicine Work Phone: Comment on above: PATIENT NOT FASTINGP ERFORMED BY: CB [facility] Gkyysr8867 Díaz RoadDublin [place] [id number] AST enzyme act/vol 16 [iU]/L Normal 0-40 [facility] Internal Medicine Work Phone: Comment on above: PATIENT NOT FASTINGP ERFORMED BY: CB [facility] Nmnidd2364 [address]íaz RoadDublin [place] [id number] Bilirubin mass conc 0.8 mg/dL Normal 0.1-1.2 [facility] Internal Medicine Work Phone: Comment on above: PATIENT NOT FASTINGP ERFORMED BY: CB [facility] Gutbnc8246 Díaz RoadDublin [place] [id number] Calcium mass conc 10.1 mg/dL Normal 8.5-10.6 Compreh ensive Internal Medicine Work Phone: Comment on above: PATIENT NOT FASTINGP ERFORMED BY: CB [facility] Zegnxe6454 [address] [facility]in [place] [id number] Chloride molar conc 101 mmol/L Normal 97-108 Compr ehensive Internal Medicine Work Phone: Comment on above: PATIENT NOT FASTINGP ERFORMED BY: CB [facility] Ritqtx[address]92 [address] [facility] [id number] CO2 molar conc 24 mmol/L Normal 20-32 Comprehens keanu Internal Medicine Work Phone: Comment on above: PATIENT NOT FASTINGP ERFORMED BY: CB [facility] Jsqbdz[address] [facility] [id number] Creatinine mass conc 0.77 mg/dL Normal 0.57-1.00 Comp [facility] Work Phone: Comment on above: PATIENT NOT FASTINGP ERFORMED BY: CB [facility] Mqwsdp8489 [facility] [id number] GFR/1.73 sq M predicted among blacks MDRD vol rate/area (S/P/Bld) mL/min/{1.73_m2} Normal [facility] Work Phone: Comment on above: Note: Persistent red uction for 3 months or more in an eGFR<60 mL/min/1.73 m2 defines CKD. Patients with eGFR values>/=60 mL/min/1.73 m2 may also have CKD if evidence of persistentproteinuria is present. Additional information may be found [email or web address]. PATIENT NOT FASTINGP ERFORMED BY: CB [facility] Dvyacr[address] [facility] [id number] GFR/1.73 sq M.predicted MDRD (S/P/Bld) [Vol rate/Area] mL/min/{1.73_m2} Normal [facility]; [facility] Work Phone: Comment on above: PATIENT NOT FASTINGP ERFORMED BY: CB [facility] Pobrqa[address] [facility] [id number] GFR/1.73 sq M.predicted MDRD vol rate/area mL/min/{1.73_m2} Normal [facility] Medicine Work Phone: Comment on above: PATIENT NOT FASTINGP ERFORMED BY: BART Gibbons[address] [facility] [id number] Globulin mass conc (S) 3.3 g/dL Normal 1.5-4.5 Co mprehensive Internal Medicine Work Phone: Comment on above: PATIENT NOT FASTINGP ERFORMED BY: BART Gibbons6370 [facility] [id number] Glucose mass conc 93 mg/dL Normal 65-99 Compreh ensive Internal Medicine Work Phone: Comment on above: PATIENT NOT FASTINGP ERFORMED BY: BART Alcides Gibbons6370 [facility] [id number] Potassium molar conc 4.2 mmol/L Normal 3.5-5.2 Comp rehensive Internal Medicine Work Phone: Comment on above: PATIENT NOT FASTINGP ERFORMED BY: BART Alcides Sosalin6370 [facility] [id number] Protein mass conc 7.8 g/dL Normal 6.0-8.5 Compreh ensive Internal Medicine Work Phone: Comment on above: PATIENT NOT FASTINGP ERFORMED BY: BART Sosalin6370 [facility] [id number] Sodium molar conc 138 mmol/L Normal 135-145 Compreh ensive Internal Medicine Work Phone: Comment on above: PATIENT NOT FASTINGP ERFORMED BY: BART LabEdelmira SosaTfikgx9447 [facility] [id number] Urea nitrogen mass conc 11 mg/dL Normal 5-26 [facility] Medicine Work Phone: Comment on above: PATIENT NOT FASTINGP ERFORMED BY: BART LabEdelmira SosaPjjiyf0476 [facility] [id number] Urea nitrogen/Creatinine mass ratio 14 mg/mg Normal 8-27 [facility] Medicine Work Phone: Comment on above: PATIENT NOT FASTINGP ERFORMED BY: [address] Qsadol0838 [facility] [id number] TSH ([id number])Ordered By: Rose Rogers on 10-04-2008 Thyrotropin Qn 1.754 {uIU/mL} Normal 0.450-4.500 Compr ehensive Internal Medicine Work Phone: Comment on above: PATIENT NOT FASTINGP ERFORMED BY: [employer] Eluxfj1343 [facility] [id number] Thyroxine (T4) Free, Direct, SOrdered By: Adhesive Bandage Machine Operator on 10-04-2008 T4 free mass conc 0.90 ng/dL Normal 0.61-1.76 Compreh ensive Internal Medicine Work Phone: Comment on above: PATIENT NOT FASTINGC linical Information: ADD DRAW FEE [id number] ADD J 61099 PERFORMED BY: BART [facility]6370 [facility] [id number] Triiodothyronine,Free,SerumO rdered By: Adhesive Bandage Machine Operator on 10-04-2008 T3 free mass conc 2.5 pg/mL Normal 2.3-4.2 Compreh ensive Internal Medicine Work Phone: Comment on above: PATIENT NOT FASTINGP ERFORMED BY: Gaikai70 [facility] [id number] Urinalysis, Office ([id number])Or dered By: STEVE Sterling on 10-04-2008 Bilirubin Ql (U) Negative Normal Comprehe nsive Internal Medicine Work Phone: Bilirubin Ql (U) Negative Normal Comprehe nsive Internal Medicine; [facility] Work Phone: Glucose Test strip (U) [Mass/Vol] Negative Normal [facility]; [facility] Work Phone: Glucose Test strip mass conc (U) Negative Normal [facility] Work Phone: Hemoglobin Ql (U) Hemolyzed Trace Normal Co mprehensive Internal Medicine Work Phone: Ketones Ql (U) Negative Normal Comprehens keanu Internal Medicine Work Phone: Ketones Ql (U) Negative Normal Comprehens keanu Internal Medicine; [facility] Work Phone: Leukocyte esterase Test strip Ql (U) Negative Normal [facility] Work Phone: Leukocyte esterase Test strip Ql (U) Negative Normal [facility]; [facility] Work Phone: Nitrite Ql (U) Negative Normal Comprehens keanu Internal Medicine Work Phone: Nitrite Ql (U) Negative Normal Comprehens keanu Internal Medicine; [facility] Work Phone: pH (U) 7.0 [pH] Normal [facility] Work Phone: Protein Ql (U) Negative Normal Comprehens keanu Internal Medicine Work Phone: Protein Ql (U) Negative Normal Comprehens keanu Internal Medicine; [facility] Medicine Work Phone: Specific gravity Relative Density (U) 1.010 1 Normal Comprehensi ve Internal Medicine Work Phone: Urobilinogen mass/time (24H U) 2 mg/dL Normal [facility] Medicine Work Phone: Written AuthorizationOrdered By: Adhesive Bandage Machine Operator on 10-04-2008 Written Authorization WAR Normal Com prehensive Internal Medicine Work Phone: Comment on above: Written Authorizatio n Received.Authorization received from ROSE ROGERS [id number] by Ramonita Jama PATIENT NOT FASTINGP ERFORMED BY: [facility]6370 [facility] [id number] PELVIC (NON-PREG) (HP)Ordere d By: Adhesive Bandage Machine Operator on 09-02-2007 PELVIC (NON-PREG) (HP) See Note Normal Co mprehensive Internal Medicine Work Phone: Comment on above: Exam Number: [id number] PELVIC ULTRASOUND HISTORYPelvic pain. Both transabdominal and transvaginal study was performed. The uterusis normal in size measuring 8.1 x 4.2 x 5.4 cm. There endometriummeasures 4 mm which is normal. There is minimal fluid in theendometrial canal. This would be abnormal if the patient ispostmenopausal. Within the cervix there is a hypoechoic areameasuring 1.4 x 0.8 x 1.2 cm. This does not appear to be completelyecholucent. Nevertheless it is most likely to represent a Nabothiancyst possibly containing small amount of debris or hemorrhage. Thereare calcifications seen along the posterior aspect of the endocervicalcanal. These are likely to represent the result of very smallcalcified fibroids which are positioned immediately posterior to theendometrium. The possibility that they are in the endometrium is notexcluded. Neither ovary is identified on transabdominal ortransvaginal study. IMPRESSION1. The endometrium measures 4 mm which is within normal limits. There is minimal food in the endometrium which would not be normal ifthe patient is postmenopausal. 2. There is a hypodensity in the cervix most likely representing aNabothian cyst with superimposed debris or minimal hemorrhage.3. There are calcifications along the posterior aspect of theendocervical canal. These are most likely to represent very smallcalcified fibroids.4. Ovaries are not identified. Reported By: DOREEN DAIGLE M.D. Exam Number: [id number] PELVIC ULTRASOUND HISTORYPelvic pain. Both transabdominal and transvaginal study was performed. The uterusis normal in size measuring 8.1 x 4.2 x 5.4 cm. There endometriummeasures 4 mm which is normal. There is minimal fluid in theendometrial canal. This would be abnormal if the patient ispostmenopausal. Within the cervix there is a hypoechoic areameasuring 1.4 x 0.8 x 1.2 cm. This does not appear to be completelyecholucent. Nevertheless it is most likely to represent a Nabothiancyst possibly containing small amount of debris or hemorrhage. Thereare calcifications seen along the posterior aspect of the endocervicalcanal. These are likely to represent the result of very smallcalcified fibroids which are positioned immediately posterior to theendometrium. The possibility that they are in the endometrium is notexcluded. Neither ovary is identified on transabdominal ortransvaginal study. IMPRESSION1. The endometrium measures 4 mm which is within normal limits. There is minimal food in the endometrium which would not be normal ifthe patient is postmenopausal. 2. There is a hypodensity in the cervix most likely representing aNabothian cyst with superimposed debris or minimal hemorrhage.3. There are calcifications along the posterior aspect of theendocervical canal. These are most likely to represent very smallcalcified fibroids.4. Ovaries are not identified. Reported By: DOREEN DAIGLE M.D. CBC (AUTO) ([id number])Ordered By : Monika Anderson on 08-24-2007 Erythrocyte distribution width Ratio (RBC) 14.8 % Normal 11.7-15.0 [facility] Work Phone: Comment on above: PATIENT NOT FASTINGP ERFORMED BY: CB [facility] Cbywba8833 Díaz RoadDublin [place] [id number] Hematocrit Volume Fraction (Bld) 39.1 % Normal 34.0-44.0 [facility] Work Phone: Comment on above: PATIENT NOT FASTINGP ERFORMED BY: CB [facility] Tkybam9520 Díaz RoadDublin [place] [id number] Hemoglobin mass conc (Bld) 13.2 g/dL Normal 11.5-15.0 [facility] Work Phone: Comment on above: PATIENT NOT FASTINGP ERFORMED BY: CB [facility] Pusfeg6587 Díaz RoadDublin [place] [id number] MCH Entitic mass (RBC) 31.0 pg Normal 27.0-34.0 [facility] Internal Medicine Work Phone: Comment on above: PATIENT NOT FASTINGP ERFORMED BY: CB [facility] Ajxucd0910 Díaz RoadDublin [place] [id number] MCHC mass conc (RBC) 33.8 g/dL Normal 32.0-36.0 [facility] Internal Medicine Work Phone: Comment on above: PATIENT NOT FASTINGP ERFORMED BY: CB [facility] Hhtlzc1000 [address] RoadDublin [place] [id number] MCV Entitic volume (RBC) 92 fL Normal 80-98 [facility] Medicine Work Phone: Comment on above: PATIENT NOT FASTINGP ERFORMED BY: CB [facility] Rbcdns7915 [address] RoadDublin [place] [id number] Platelets #/vol (Bld) 275 {x10E3/uL} Normal 140-415 [facility] Medicine Work Phone: Comment on above: PATIENT NOT FASTINGP ERFORMED BY: CB [facility] Itqotl4271 [address] RoadDublin [place] [id number] Platelets (Bld) [#/Vol] 275 10*3/uL Normal 140-415 [facility]; [facility] Work Phone: Comment on above: PATIENT NOT FASTINGP ERFORMED BY: CB [facility] Vfkggr2561 Díaz RoadDublin [place] [id number] RBC #/vol (Bld) 4.26 {x10E6/uL} Normal 3.80-5.10 Comp [facility] Internal [facility] Work Phone: Comment on above: PATIENT NOT FASTINGP ERFORMED BY: CB [facility] Ekydms9137 Díaz RoadDublin [place] [id number] RBC (Bld) [#/Vol] 4.26 10*6/uL Normal 3.80-5.10 Compr ensive Internal Medicine; [facility] Work Phone: Comment on above: PATIENT NOT FASTINGP ERFORMED BY: CB [facility] Gvecyq0803 Dí[address] RoadDublin [place] [id number] WBC #/vol (Bld) 6.9 {x10E3/uL} Normal 4.0-10.5 Compr ensive Internal Medicine Work Phone: Comment on above: PATIENT NOT FASTINGP ERFORMED BY: CB [facility] Djechq0619 Díaz RoadDublin [place] [id number] WBC (Bld) [#/Vol] 6.9 10*3/uL Normal 4.0-10.5 Compre [facility] Internal Medicine; [facility] Internal Medicine Work Phone: Comment on above: PATIENT NOT FASTINGP ERFORMED BY: CB [facility] Wmmwzs9123 Díaz RoadDublin [place] [id number] METABOLIC PANEL, COMPREHENSI VE ([id number])Ordered By: Monika Anderson on 08-24-2007 Albumin mass conc 4.3 g/dL Normal 3.5-5.5 Compreh ensive Internal Medicine Work Phone: Comment on above: PATIENT NOT FASTINGC linical Information: ADD DRAW FEE 894009 ADD J 75052 PERFORMED BY: [place] [id number] [facility] [id number] Albumin/Globulin mass ratio 1.3 {ratio} Normal 1.1-2.5 [facility] Work Phone: Comment on above: PATIENT NOT FASTINGC linical Information: ADD DRAW FEE [id number] ADD J 44504 PERFORMED BY: [facility] Mbitnm0[address] [id number] ALP [Catalytic activity/Vol] 64 U/L Normal 25-150 [facility]; [facility] Work Phone: Comment on above: PATIENT NOT FASTINGC linical Information: ADD DRAW FEE 168093 ADD J 31050 PERFORMED BY: [place] [id number] [facility] [id number] ALP enzyme act/vol 64 [iU]/L Normal 25-150 [facility] Internal Medicine Work Phone: Comment on above: PATIENT NOT FASTINGC linical Information: ADD DRAW FEE [id number] ADD J 98965 PERFORMED BY: [place] [id number] [facility] [id number] ALT [Catalytic activity/Vol] 26 U/L Normal 0-40 [facility]; [facility] Internal Medicine Work Phone: Comment on above: PATIENT NOT FASTINGC linical Information: ADD DRAW FEE [id number] ADD J 16412 PERFORMED BY: [place] [id number] [facility] [id number] ALT enzyme act/vol 26 [iU]/L Normal 0-40 [facility] Internal Medicine Work Phone: Comment on above: PATIENT NOT FASTINGC linical Information: ADD DRAW FEE 568539 ADD J 86899 PERFORMED BY: [address] [id number] AST [Catalytic activity/Vol] 21 U/L Normal 0-40 [facility]; [facility] Internal Medicine Work Phone: Comment on above: PATIENT NOT FASTINGC linical Information: ADD DRAW FEE 134580 ADD J 60666 PERFORMED BY: [facility]6370 [facility] [id number] AST enzyme act/vol 21 [iU]/L Normal 0-40 Compre [facility] Internal Medicine Work Phone: Comment on above: PATIENT NOT FASTINGC linical Information: ADD DRAW FEE 738306 ADD J 61583 PERFORMED BY: [place] [id number] [facility] [id number] Bilirubin mass conc 0.5 mg/dL Normal 0.1-1.2 Compr ensive Internal Medicine Work Phone: Comment on above: PATIENT NOT FASTINGC linical Information: ADD DRAW FEE 568250 ADD J 55391 PERFORMED BY: [address] [id number] Calcium mass conc 9.5 mg/dL Normal 8.5-10.6 Compreh [facility]ive Internal Medicine Work Phone: Comment on above: PATIENT NOT FASTINGC linical Information: ADD DRAW FEE [id number] ADD J 22302 PERFORMED BY: [place] [id number] [facility] [id number] Chloride molar conc 105 mmol/L Normal 97-108 Compr [facility] Internal Medicine Work Phone: Comment on above: PATIENT NOT FASTINGC linical Information: ADD DRAW FEE 548862 ADD J 89615 PERFORMED BY: [address] [id number] CO2 molar conc 25 mmol/L Normal 20-32 Comprehens [facility] Internal Medicine Work Phone: Comment on above: PATIENT NOT FASTINGC linical Information: ADD DRAW FEE 473212 ADD J 09983 PERFORMED BY: [address] [id number] Creatinine mass conc 0.7 mg/dL Normal 0.5-1.5 Comp [facility] Internal Medicine Work Phone: Comment on above: Effective August 31, 2007 [facility] will report an eGFR,when a serum creatinine is ordered. PATIENT NOT FASTINGC linical Information: ADD DRAW FEE 917173 ADD J 71301 PERFORMED BY: [facility]6370 [facility] [id number] Globulin mass conc (S) 3.2 g/dL Normal 1.5-4.5 Co [facility]ensive [facility] Work Phone: Comment on above: PATIENT NOT FASTINGC linical Information: ADD DRAW FEE 220156 ADD J 43374 PERFORMED BY: [place] [id number] [facility] [id number] Glucose mass conc 95 mg/dL Normal 65-99 Compreh ensive Internal Medicine Work Phone: Comment on above: PATIENT NOT FASTINGC linical Information: ADD DRAW FEE [id number] ADD J 51528 PERFORMED BY: [address] [id number] Potassium molar conc 4.4 mmol/L Normal 3.5-5.2 Comp [facility] Work Phone: Comment on above: PATIENT NOT FASTINGC linical Information: ADD DRAW FEE 922770 ADD J 47262 PERFORMED BY: [place] [id number] [facility] [id number] Protein mass conc 7.5 g/dL Normal 6.0-8.5 Compreh ensive Internal Medicine Work Phone: Comment on above: PATIENT NOT FASTINGC linical Information: ADD DRAW FEE 303167 ADD J 97494 PERFORMED BY: [place] [id number] [facility] [id number] Sodium molar conc 141 mmol/L Normal 135-145 Compreh ensive Internal Medicine Work Phone: Comment on above: PATIENT NOT FASTINGC linical Information: ADD DRAW FEE 265607 ADD J 04804 PERFORMED BY: [address] [id number] Urea nitrogen mass conc 8 mg/dL Normal 5-26 [facility] Work Phone: Comment on above: PATIENT NOT FASTINGC linical Information: ADD DRAW FEE 868006 ADD J 80351 PERFORMED BY: [address] [id number] Urea nitrogen/Creatinine mass ratio 11 mg/mg Normal 8-27 [facility] Work Phone: Comment on above: PATIENT NOT FASTINGC linical Information: ADD DRAW FEE 124985 ADD J 23783 PERFORMED BY: BART [employer] [employer] Qxyguu0496 [facility] [id number] TEST - SERUM QUANT ITATIVE (HCG) (02124)Ordered By: Monika Anderson on 08-24-2007 Beta HCG ( test) Ql Negative Normal [facility]; [facility] Work Phone: Comment on above: Negative < 5 Borderl ine 5 - 20 Positive >20 PATIENT NOT FASTINGP ERFORMED BY: BART [facility] Gujubz3260 [facility] [id number] HCG.beta subunit ( test) Ql Negative Normal Comprehensiv e Internal Medicine Work Phone: Comment on above: Negative < 5 Borderl ine 5 - 20 Positive >20 PATIENT NOT FASTINGP ERFORMED BY: BART 908 DevicesCommunity Medical CenterTwzjcu6129 [facility] [id number] TSH ([id number])Ordered By: Levi Anderson on 08-24-2007 Thyrotropin Qn 2.613 {uIU/mL} Normal 0.350-5.500 Compr [facility] Internal Medicine Work Phone: Comment on above: Adult TSH concentrat ions below 5.5 uIU/mL does not rule out the presence of subclinical hypothyroidism. PATIENT NOT FASTINGP ERFORMED BY: BRAT [employer] [employer] Acnrhx6081 [facility] [id number] URINE PATRICK CULTURE (DARLINE COL COUNT) ([id number])Ordered By: Monika Anderson on 08-24-2007 Bacteria identified Cx Nom (U) NG36 Normal [facility] Work Phone: Comment on above: No growth in 36 - 48 hours. PATIENT NOT FASTINGP ERFORMED BY: [facility]6370 [facility] [id number] Bacteria identified Cx Nom (U) Final report Normal [facility] Work Phone: Comment on above: PATIENT NOT FASTINGP ERFORMED BY: LabSt. Joseph Medical CenterCtqvqw7141 [facility] [id number] Urinalysis, Office ([id number])Or dered By: Galilea Waters on 08-24-2007 Bilirubin Ql (U) Negative Normal Comprehe nsive Internal Medicine Work Phone: Bilirubin Ql (U) Negative Normal Comprehe nsive Internal Medicine; [facility] Work Phone: Glucose Test strip (U) [Mass/Vol] Negative Normal [facility]; [facility] Work Phone: Glucose Test strip mass conc (U) Negative Normal [facility] Work Phone: Hemoglobin Ql (U) Non Hemolyzed Trace Normal [facility] Work Phone: Ketones Ql (U) Negative Normal Comprehens keanu Internal Medicine Work Phone: Ketones Ql (U) Negative Normal Comprehens keanu Internal Medicine; [facility] Work Phone: Leukocyte esterase Test strip Ql (U) Negative Normal [facility] Work Phone: Leukocyte esterase Test strip Ql (U) Negative Normal [facility]; [facility] Work Phone: Nitrite Ql (U) Negative Normal Comprehens keanu Internal Medicine Work Phone: Nitrite Ql (U) Negative Normal Comprehens keanu Internal Medicine; [facility] Work Phone: pH (U) 6.5 [pH] Normal [facility] Work Phone: Protein Ql (U) Negative Normal Comprehens keanu Internal Medicine Work Phone: Protein Ql (U) Negative Normal Comprehens keanu Internal Medicine; [facility] Work Phone: Specific gravity Relative Density (U) 1.005 1 Normal Comprehensi ve Internal Medicine Work Phone: Urobilinogen mass/time (24H U) Normal Normal [facility] Work Phone: Vital Signs Date Time Vital Sign Value Performing Clinician Facility 12-27-2024 08:38-0400 Body height 167.[address] Breezy Mello MD Work Phone: [facility] 12-27-2024 08:38-0400 Body mass index (BMI) [Ratio] 24.2 kg/m2 Dr. Breezy Mello MD Work Phone: [facility] [facility] 12-27-2024 08:38-0400 Body weight 68.[address] Breezy Mello MD Work Phone: [facility] 06-28-2022 08:00-0500 Diastolic blood pressure 76 mm[Hg] Shelley Lemjuanis PT [facility] 06-28-2022 08:00-0500 Systolic blood pressure 130 mm[Hg] Shelley Lemon PT [facility] 06-07-2022 09:40-0500 Body temperature 97.5 [degF] Sean Mungo V[facility] 06-07-2022 09:40-0500 Diastolic blood pressure 55 mm[Hg] Sean Mungo [facility] 06-07-2022 09:40-0500 Heart rate 62 /min Sean Mungo [facility] 06-07-2022 09:40-0500 Respiratory rate 16 /min Sean Mungo [facility] 06-07-2022 09:40-0500 SaO2% (BldA) [Mass fraction] 96 % Sean Mungo [facility] 06-07-2022 09:40-0500 Systolic blood pressure 97 mm[Hg] Sean Mungo [facility] 06-06-2022 08:47-0500 Body height 160.02 cm Sean Mungo [facility] 06-06-2022 08:47-0500 Body weight 75.4 kg Sean Garcia [facility] 10-30-2020 08:35-0400 Body height 160.02 cm Lela Solano CMA [facility] Work Phone: 10-30-2020 08:35-0400 Body mass index (BMI) [Ratio] 28.54 kg/m2 Lela Solano CMA [facility]; [facility] Work Phone: 10-30-2020 08:35-0400 Body surface area Derived from formula 1.76 m2 Lela Solano CMA [facility]; [facility] Work Phone: 10-30-2020 08:35-0400 Body temperature 97.1 [degF] Lela Solano CMA [facility]; [facility] Work Phone: Comment on above: Method: Infrared 10-30-2020 08:35-0400 Body weight 73.09 kg Lela Solano CMA [facility]; [facility] Work Phone: 10-30-2020 08:35-0400 Diastolic blood pressure 80 mm[Hg] Lela Solano CMA [facility]; [facility] Work Phone: Comment on above: Patient Position: Sitting; Cuff Location : Left Arm; Cuff Size: Standard 10-30-2020 08:35-0400 Heart rate 77 /min Lela Solano CMA [facility]; [facility] Work Phone: Comment on above: Pattern: Regular 10-30-2020 08:35-0400 Respiratory rate 18 /min Lela Solano CMA [facility]; [facility] Work Phone: Comment on above: Pattern: Unlabored 10-30-2020 08:35-0400 SaO2% (BldA) [Mass fraction] 97 % Lela Solano [employer] [facility]; [facility] Work Phone: Comment on above: Room air 10-30-2020 08:35-0400 Systolic blood pressure 132 mm[Hg] Lela Solano CMA [facility]; [facility] Work Phone: Comment on above: Patient Position: Sitting; Cuff Location : Left Arm; Cuff Size: Standard 07-24-2020 11:130400 Body height 160.02 cm Lela Solano CMA [facility]; [facility] Work Phone: 07-24-2020 11:13-0400 Body mass index (BMI) [Ratio] 28.54 kg/m2 Lela Solano [facility]; [facility] Work Phone: 07-24-2020 11:130400 Body surface area Derived from formula 1.76 m2 Lela Solano [employer]OP[employer]ORATORY SUPERVISOR [facility]; [facility] Work Phone: 07-24-2020 11:130400 Body temperature 96.6 [degF] Lela Solano [facility]; [facility] Work Phone: Comment on above: Method: Infrared 07-24-2020 11:130400 Body weight 73.09 kg Lela Solano [facility]; [facility] Work Phone: 07-24-2020 11:13-0400 Diastolic blood pressure 80 mm[Hg] Lela Solano [facility] Work Phone: Comment on above: Patient Position: Sitting; Cuff Location : Left Arm; Cuff Size: Standard 07-24-2020 11:13-0400 Heart rate 89 /min Lela Solano [facility]; [facility] Work Phone: Comment on above: Pattern: Regular 07-24-2020 11:13-0400 Respiratory rate 16 /min Lela Solano [facility]; [facility] Work Phone: Comment on above: Pattern: Unlabored 07-24-2020 11:13-0400 SaO2% (BldA) [Mass fraction] 97 % Lela Solano [facility]; [facility] Work Phone: Comment on above: Room air 07-24-2020 11:13-0400 Systolic blood pressure 120 mm[Hg] Lela Solano [facility]; [facility] Work Phone: Comment on above: Patient Position: Sitting; Cuff Location : Left Arm; Cuff Size: Standard 07-10-2020 14:38-0500 BMI (Body Mass Index) 28.54 kg/m2 Matthew Ferguson LPN [facility]; [facility] Work Phone: 07-10-2020 14:38-0500 Body Temperature 97.5 [degF] Matthew Ferguson LPN [facility]; [facility] Work Phone: Comment on above: Method: Infrared 07-10-2020 14:38-0500 Body weight 73.09 kg Matthew Ferguson LPN [facility]; [facility] Work Phone: 07-10-2020 14:38-0500 BP Diastolic 82 mm[Hg] Matthew Ferguson LPN [facility]; [facility] Work Phone: Comment on above: Patient Position: Sitting; Cuff Location : Left Arm; Cuff Size: Standard 07-10-2020 14:38-0500 BP Systolic 124 mm[Hg] Matthew Ferguson LPN [facility]; [facility] Work Phone: Comment on above: Patient Position: Sitting; Cuff Location : Left Arm; Cuff Size: Standard 07-10-2020 14:38-0500 BSA (Body Surface Area) 1.76 m2 Matthew Ferguson LPN [facility]; [facility] Work Phone: 07-10-2020 14:38-0500 Height 160.02 cm Matthew Ferguson LPN [facility]; [facility] Work Phone: 07-10-2020 14:38-0500 Pulse (Heart Rate) 103 /min Matthew Ferguson LPN [facility]; [facility] Work Phone: Comment on above: Pattern: Regular 07-10-2020 14:38-0500 Pulse Oximetry 96 % Monika Anderson [facility]; [facility] Work Phone: Comment on above: Room air 07-10-2020 14:38-0500 Respiratory Rate 18 /min Matthew Ferguson LPN [facility]; [facility] Work Phone: Comment on above: Pattern: Unlabored 07-10-2020 14:38-0500 SaO2% (BldA) [Mass fraction] 96 % Matthew Ferguson LPN [facility]; [facility] Work Phone: Comment on above: Room air 07-01-2018 09:24-0500 BMI (Body Mass Index) 28.54 kg/m2 Marian Quincy [facility] Work Phone: 07-01-2018 09:24-0500 Body Temperature 98 [degF] Marian Banueloslear [facility] Work Phone: Comment on above: Method: Temporal 07-01-2018 09:24-0500 Body weight 73.09 kg Marian Banueloslear [facility]; [facility] Work Phone: 07-01-2018 09:24-0500 BP Diastolic 80 mm[Hg] Marian Banueloslear [facility] Work Phone: Comment on above: Patient Position: Sitting; Cuff Location : Left Arm; Cuff Size: Standard 07-01-2018 09:24-0500 BP Systolic 114 mm[Hg] Marian Mathew [facility] Work Phone: Comment on above: Patient Position: Sitting; Cuff Location : Left Arm; Cuff Size: Standard 07-01-2018 09:24-0500 BSA (Body Surface Area) 1.76 m2 Marian Banueloslear [facility] Work Phone: 07-01-2018 09:24-0500 Height 160.02 cm Marian Banueloslear [facility] Work Phone: 07-01-2018 09:24-0500 Pulse (Heart Rate) 70 /min Marian Baneuloslear [facility] Work Phone: Comment on above: Pattern: Regular 07-01-2018 09:24-0500 Pulse Oximetry 97 % Monika Anderson [facility] Work Phone: Comment on above: Room air 07-01-2018 09:24-0500 Respiratory Rate 17 /min Marian Banueloslear [facility] Work Phone: Comment on above: Pattern: Unlabored 07-01-2018 09:24-0500 SaO2% (BldA) [Mass fraction] 97 % Marian Mathew [facility]; [facility] Work Phone: Comment on above: Room air 07-01-2018 09:24-0500 Weight 73.09 kg Monika Anderson [facility] Work Phone: 12-22-2017 14:47-0400 BMI (Body Mass Index) 28.54 kg/m2 Galilea Waters RN [facility] Work Phone: 12-22-2017 14:47-0400 Body Temperature 97.2 [degF] Galilea Waters RN [facility] Work Phone: Comment on above: Method: Temporal 12-22-2017 14:47-0400 Body weight 73.09 kg Galilea Waters RN [facility]; [facility] Work Phone: 12-22-2017 14:47-0400 BP Diastolic 86 mm[Hg] Galilea Waters RN [facility] Work Phone: Comment on above: Patient Position: Sitting; Cuff Location : Left Arm; Cuff Size: Large 12-22-2017 14:47-0400 BP Systolic 122 mm[Hg] Galilea Waters RN [facility] Work Phone: Comment on above: Patient Position: Sitting; Cuff Location : Left Arm; Cuff Size: Large 12-22-2017 14:47-0400 BSA (Body Surface Area) 1.76 m2 Galilea Waters RN [facility] Work Phone: 12-22-2017 14:47-0400 Height 160.02 cm Galilea Waters RN [facility] Work Phone: 12-22-2017 14:47-0400 Pulse (Heart Rate) 95 /min Galilea Waters RN [facility] Work Phone: Comment on above: Pattern: Regular 12-22-2017 14:47-0400 Pulse Oximetry 98 % Monika Giordanoon [facility] Work Phone: Comment on above: Room air 12-22-2017 14:47-0400 Respiratory Rate 18 /min Galilea Waters RN [facility] Work Phone: Comment on above: Pattern: Unlabored 12-22-2017 14:47-0400 SaO2% (BldA) [Mass fraction] 98 % Galilea Waters RN [facility]; [facility] Work Phone: Comment on above: Room air 12-22-2017 14:47-0400 Weight 73.09 kg Monika Anderson [facility] Work Phone: 10-03-2017 14:44-0400 BMI (Body Mass Index) 28.59 kg/m2 Galilea Waters RN [facility] Work Phone: 10-03-2017 14:44-0400 Body weight 73.2 kg Galilea Waters RN [facility]; [facility] Work Phone: 10-03-2017 14:44-0400 BP Diastolic 68 mm[Hg] Galilea Waters RN [facility] Work Phone: Comment on above: Patient Position: Sitting; Cuff Location : Left Arm; Cuff Size: Large 10-03-2017 14:44-0400 BP Systolic 118 mm[Hg] Galilea Waters RN [facility] Work Phone: Comment on above: Patient Position: Sitting; Cuff Location : Left Arm; Cuff Size: Large 10-03-2017 14:44-0400 BSA (Body Surface Area) 1.77 m2 Galilea Waters RN [facility] Work Phone: 10-03-2017 14:44-0400 Height 160.02 cm Galilea Waters RN [facility] Work Phone: 10-03-2017 14:44-0400 Pulse (Heart Rate) 70 /min Galilea Waters RN [facility] Work Phone: Comment on above: Pattern: Regular 10-03-2017 14:44-0400 Pulse Oximetry 97 % Monika Anderson [facility] Work Phone: Comment on above: Room air 10-03-2017 14:44-0400 Respiratory Rate 18 /min Galilea Waters RN [facility] Work Phone: Comment on above: Pattern: Unlabored 10-03-2017 14:44-0400 SaO2% (BldA) [Mass fraction] 97 % Galilea Waters RN [facility]; [facility] Work Phone: Comment on above: Room air 10-03-2017 14:44-0400 Weight 73.2 kg Monika Anderson [facility] Work Phone: 08-28-2015 09:32-0400 BMI (Body Mass Index) 30.47 kg/m2 Galilea Waters RN [facility] Work Phone: 08-28-2015 09:32-0400 Body weight 78.02 kg Galilea Waters RN [facility]; [facility] Work Phone: 08-28-2015 09:32-0400 BP Diastolic 78 mm[Hg] Galilea Waters RN [facility] Work Phone: Comment on above: Patient Position: Sitting; Cuff Location : Left Arm; Cuff Size: Large 08-28-2015 09:32-0400 BP Systolic 120 mm[Hg] Galilea Waters RN [facility] Work Phone: Comment on above: Patient Position: Sitting; Cuff Location : Left Arm; Cuff Size: Large 08-28-2015 09:32-0400 BSA (Body Surface Area) 1.81 m2 Galilea Waters RN [facility] Work Phone: 08-28-2015 09:32-0400 Height 160.02 cm Galilea Waters RN [facility] Work Phone: 08-28-2015 09:32-0400 Pulse (Heart Rate) 94 /min Galilea Waters RN [facility] Work Phone: Comment on above: Pattern: Regular 08-28-2015 09:32-0400 Pulse Oximetry 98 % Monika Anderson [facility] Work Phone: Comment on above: Room air 08-28-2015 09:32-0400 Respiratory Rate 18 /min Galilea Waters RN [facility] Work Phone: Comment on above: Pattern: Unlabored 08-28-2015 09:32-0400 SaO2% (BldA) [Mass fraction] 98 % Galilea Waters RN [facility]; [facility] Work Phone: Comment on above: Room air 08-28-2015 09:32-0400 Weight 78.02 kg Monika Anderson [facility] Work Phone: 08-16-2015 13:13-0400 BMI (Body Mass Index) 30.47 kg/m2 Galilea Waters RN [facility] Work Phone: 08-16-2015 13:13-0400 Body Temperature 98.4 [degF] Galilea Waters RN [facility] Work Phone: Comment on above: Method: Oral 08-16-2015 13:13-0400 Body weight 78.02 kg Galilea Waters RN [facility]; [facility] Work Phone: 08-16-2015 13:13-0400 BP Diastolic 86 mm[Hg] Galilea Waters RN [facility] Work Phone: Comment on above: Patient Position: Sitting; Cuff Location : Left Arm; Cuff Size: Large 08-16-2015 13:13-0400 BP Systolic 118 mm[Hg] Galilea Waters RN [facility] Work Phone: Comment on above: Patient Position: Sitting; Cuff Location : Left Arm; Cuff Size: Large 08-16-2015 13:13-0400 BSA (Body Surface Area) 1.81 m2 Galilea Waters RN [facility] Work Phone: 08-16-2015 13:13-0400 Height 160.02 cm Galilea Waters RN [facility] Work Phone: 08-16-2015 13:13-0400 Pulse (Heart Rate) 98 /min Galilea Waters RN [facility] Work Phone: Comment on above: Pattern: Regular 08-16-2015 13:13-0400 Pulse Oximetry 98 % Monika Anderson [facility] Work Phone: Comment on above: Room air 08-16-2015 13:13-0400 Respiratory Rate 18 /min Galilea Waters RN [facility] Work Phone: Comment on above: Pattern: Unlabored 08-16-2015 13:13-0400 SaO2% (BldA) [Mass fraction] 98 % Galilea Waters RN [facility]; [facility] Work Phone: Comment on above: Room air 08-16-2015 13:13-0400 Weight 78.02 kg Monika Anderson [facility] Work Phone: 12-07-2014 14:38-0400 BMI (Body Mass Index) 30.47 kg/m2 Macy Becerrilen [facility] Work Phone: 12-07-2014 14:38-0400 Body Temperature 97.8 [degF] Macy Forman [facility] Work Phone: Comment on above: Method: Oral 12-07-2014 14:38-0400 Body weight 78.02 kg Macy Dickson [facility]; [facility] Work Phone: 12-07-2014 14:38-0400 BP Diastolic 68 mm[Hg] Macy Forman [facility] Work Phone: Comment on above: Patient Position: Sitting; Cuff Location : Left Arm; Cuff Size: Standard 12-07-2014 14:38-0400 BP Systolic 110 mm[Hg] Macy Forman [facility] Work Phone: Comment on above: Patient Position: Sitting; Cuff Location : Left Arm; Cuff Size: Standard 12-07-2014 14:38-0400 BSA (Body Surface Area) 1.81 m2 Macy Forman [facility] Work Phone: 12-07-2014 14:38-0400 Height 160.02 cm Macy Forman [facility] Work Phone: 12-07-2014 14:38-0400 Pulse (Heart Rate) 84 /min Macy Becerrilensiv e [facility] Work Phone: Comment on above: Pattern: Regular 12-07-2014 14:38-0400 Respiratory Rate 17 /min Macy Forman [facility] Work Phone: Comment on above: Pattern: Unlabored 12-07-2014 14:38-0400 Weight 78.02 kg Monika Anderson [facility] Work Phone: 01-21-2014 13:090400 BMI (Body Mass Index) 30.65 kg/m2 Galilea Waters RN [facility] Work Phone: 01-21-2014 13:09-0400 Body weight 78.47 kg Galilea Waters RN [facility]; [facility] Work Phone: 01-21-2014 13:09-0400 BP Diastolic 78 mm[Hg] Galilea Waters RN [facility] Work Phone: Comment on above: Patient Position: Sitting; Cuff Location : Left Arm; Cuff Size: Large 01-21-2014 13:090400 BP Systolic 120 mm[Hg] Galilea Waters RN [facility] Work Phone: Comment on above: Patient Position: Sitting; Cuff Location : Left Arm; Cuff Size: Large 01-21-2014 13:0400 BSA (Body Surface Area) 1.82 m2 Galilea Waters RN [facility] Work Phone: 01-21-2014 13:090400 Height 160.02 cm Galilea Waters RN [facility] Work Phone: 01-21-2014 13:09-0400 Pulse (Heart Rate) 91 /min Galilea Waters RN [facility] Work Phone: Comment on above: Pattern: Regular 01-21-2014 13:09-0400 Pulse Oximetry 97 % Monikaeduardo Anderson [facility] Work Phone: Comment on above: Room air 01-21-2014 13:09-0400 Respiratory Rate 20 /min Galilea Waters RN [facility] Work Phone: Comment on above: Pattern: Unlabored 01-21-2014 13:09-0400 SaO2% (BldA) [Mass fraction] 97 % Galilea Waters RN [facility]; [facility] Work Phone: Comment on above: Room air 01-21-2014 13:09-0400 Weight 78.47 kg Monika Anderson [facility] Work Phone: 01-18-2014 13:08-0400 BMI (Body Mass Index) 30.53 kg/m2 Monika Anderson [facility] Work Phone: 01-18-2014 13:08-0400 Body Temperature 97.7 [degF] Monika Anderson [facility] Work Phone: Comment on above: Method: Oral 01-18-2014 13:08-0400 Body weight 78.19 kg Monika Anderson [facility]; [facility] Work Phone: 01-18-2014 13:08-0400 BP Diastolic 72 mm[Hg] Monika Anderson [facility] Work Phone: Comment on above: Patient Position: Sitting; Cuff Location : Left Arm; Cuff Size: Standard 01-18-2014 13:08-0400 BP Systolic 118 mm[Hg] Monika Anderson [facility] Work Phone: Comment on above: Patient Position: Sitting; Cuff Location : Left Arm; Cuff Size: Standard 01-18-2014 13:08-0400 BSA (Body Surface Area) 1.82 m2 Monika Anderson [facility] Work Phone: 01-18-2014 13:08-0400 Height 160.02 cm Monika Anderson [facility] Work Phone: 01-18-2014 13:08-0400 Pulse (Heart Rate) 82 /min Monika Anderson [facility] Work Phone: Comment on above: Pattern: Regular 01-18-2014 13:08-0400 Pulse Oximetry 97 % Monika Anderson [facility] Work Phone: Comment on above: Room air 01-18-2014 13:08-0400 Respiratory Rate 16 /min Monika Anderson [facility] Work Phone: 01-18-2014 13:08-0400 SaO2% (BldA) [Mass fraction] 97 % Monika Anderson DO Work Phone: [facility]; [facility] Work Phone: Comment on above: Room air 01-18-2014 13:08-0400 Weight 78.19 kg Monika Anderson [facility] Work Phone: 03-10-2009 13:36-0500 Body Temperature 98.4 [degF] Galilea Waters RN [facility] Work Phone: Comment on above: Method: Oral 03-10-2009 13:36-0500 Body weight 88 kg Galilea Waters RN [facility]; [facility] Work Phone: 03-10-2009 13:36-0500 BP Diastolic 82 mm[Hg] Galilea Waters RN [facility] Work Phone: Comment on above: Patient Position: Sitting; Cuff Location : Left Arm; Cuff Size: Large 03-10-2009 13:36-0500 BP Systolic 120 mm[Hg] Galilea Waters RN [facility] Work Phone: Comment on above: Patient Position: Sitting; Cuff Location : Left Arm; Cuff Size: Large 03-10-2009 13:36-0500 Head Circumference 0 cm Monika Anderson [facility] Work Phone: 03-10-2009 13:36-0500 Head Occipital-frontal circumference 0 cm Galilea Waters RN [facility]; [facility] Work Phone: 03-10-2009 13:36-0500 Height 0 cm Galilea Waters RN [facility] Work Phone: 03-10-2009 13:36-0500 Pulse (Heart Rate) 84 /min Galilea Waters RN [facility] Work Phone: Comment on above: Pattern: Regular 03-10-2009 13:36-0500 Respiratory Rate 20 /min Galilea Waters RN [facility] Work Phone: Comment on above: Pattern: Unlabored 03-10-2009 13:36-0500 Weight 88 kg Monika Anderson [facility] Work Phone: 11-10-2008 10:24-0400 Body weight 88 kg STEVE Sterling LPN [facility]; [facility] Work Phone: 11-10-2008 10:24-0400 BP Diastolic 84 mm[Hg] STEVE Sterling LPN [facility] Work Phone: Comment on above: Patient Position: Sitting; Cuff Location : Left Arm; Cuff Size: Large 11-10-2008 10:24-0400 BP Systolic 124 mm[Hg] STEVE Sterling LPN [facility] Work Phone: Comment on above: Patient Position: Sitting; Cuff Location : Left Arm; Cuff Size: Large 11-10-2008 10:24-0400 Head Circumference 0 cm Monika Anderson [facility] Work Phone: 11-10-2008 10:24-0400 Head Occipital-frontal circumference 0 cm STEVE Sterling LPN [facility]; [facility] Work Phone: 11-10-2008 10:24-0400 Height 0 cm STEVE Sterling LPN [facility] Work Phone: 11-10-2008 10:24-0400 Pulse (Heart Rate) 72 /min STEVE Sterling [employer]PER[employer] [facility] Work Phone: Comment on above: Pattern: Regular 11-10-2008 10:24-0400 Respiratory Rate 16 /min STEVE Sterling [employer] SUPER[employer] [facility] Work Phone: Comment on above: Pattern: Unlabored 11-10-2008 10:24-0400 Weight 88 kg Monika Anderson [facility] Work Phone: 10-04-2008 11:30-0400 Body Temperature 98.2 [degF] STEVE Sterling [employer] SUPER[employer] [facility] Work Phone: Comment on above: Method: Oral 10-04-2008 11:30-0400 Body weight 0 kg STEVE Sterling LPN [facility]; [facility] Work Phone: 10-04-2008 11:30-0400 BP Diastolic 86 mm[Hg] STEVE Sterling [facility] Work Phone: Comment on above: Patient Position: Sitting; Cuff Location : Left Arm; Cuff Size: Large 10-04-2008 11:30-0400 BP Systolic 124 mm[Hg] STEVE Sterling [employer] SUPER[employer] [facility] Work Phone: Comment on above: Patient Position: Sitting; Cuff Location : Left Arm; Cuff Size: Large 10-04-2008 11:30-0400 Head Circumference 0 cm Monika Anderson [facility] Work Phone: 10-04-2008 11:30-0400 Head Occipital-frontal circumference 0 cm STEVE Sterling DARBY [facility] Work Phone: 10-04-2008 11:30-0400 Height 0 cm STEVE Sterling DARBY [facility] Work Phone: 10-04-2008 11:30-0400 Pulse (Heart Rate) 76 /min STEVE Sterling DARBY [facility] Work Phone: Comment on above: Pattern: Regular 10-04-2008 11:30-0400 Respiratory Rate 16 /min STEVE Sterling DARBY [facility] Work Phone: Comment on above: Pattern: Unlabored 10-04-2008 11:30-0400 Weight 0 kg Monika Anderson [facility] Work Phone: 08-24-2007 14:26-0400 Body Temperature 98.5 [degF] Galilea Waters RN [facility] Work Phone: Comment on above: Method: Oral 08-24-2007 14:26-0400 Body weight 0 kg Galilea Waters RN [facility] Work Phone: 08-24-2007 14:26-0400 BP Diastolic 80 mm[Hg] Galilea Waters RN [facility] Work Phone: Comment on above: Patient Position: Sitting; Cuff Location : Left Arm; Cuff Size: Standard 08-24-2007 14:26-0400 BP Systolic 118 mm[Hg] Galilea Waters RN [facility] Work Phone: Comment on above: Patient Position: Sitting; Cuff Location : Left Arm; Cuff Size: Standard 08-24-2007 14:26-0400 Head Circumference 0 cm Monika Anderson [facility] Work Phone: 08-24-2007 14:26-0400 Head Occipital-frontal circumference 0 cm Galilea Waters RN [facility] Work Phone: 08-24-2007 14:26-0400 Height 0 cm Galilea Waters RN [facility] Work Phone: 08-24-2007 14:26-0400 Pulse (Heart Rate) 80 /min Galilea Waters RN [facility] Work Phone: Comment on above: Pattern: Regular 08-24-2007 14:26-0400 Respiratory Rate 20 /min Galilea Waters RN [facility] Work Phone: Comment on above: Pattern: Unlabored 08-24-2007 14:26-0400 Weight 0 kg Monika Anderson [facility] Work Phone: 03-03-2007 12:30-0400 Body Temperature 98.4 [degF] Macy Forman [facility] Work Phone: Comment on above: Method: Oral 03-03-2007 12:30-0400 Body weight 0 kg Macy Forman [facility]; [facility] Work Phone: 03-03-2007 12:30-0400 BP Diastolic 80 mm[Hg] Macy Forman [facility] Work Phone: Comment on above: Patient Position: Sitting; Cuff Location : Right Arm; Cuff Size: Standard 03-03-2007 12:30-0400 BP Systolic 108 mm[Hg] Macy Forman [facility] Work Phone: Comment on above: Patient Position: Sitting; Cuff Location : Right Arm; Cuff Size: Standard 03-03-2007 12:30-0400 Head Circumference 0 cm Monika Anderson [facility] Work Phone: 03-03-2007 12:30-0400 Head Occipital-frontal circumference 0 cm Macy Forman [facility]; [facility] Work Phone: 03-03-2007 12:30-0400 Height 0 cm Macy Forman [facility] Work Phone: 03-03-2007 12:30-0400 Pulse (Heart Rate) 76 /min Macy Forman [facility] Work Phone: Comment on above: Pattern: Regular 03-03-2007 12:30-0400 Respiratory Rate 16 /min Macy Forman [facility] Work Phone: Comment on above: Pattern: Unlabored 03-03-2007 12:30-0400 Weight 0 kg Monika Anderson [facility] Work Phone: Encounters Encounter Date Encounter Type Care Provider Facility Start: 02-15-2025 ambulatory Breezy Mello Facility:[facility] Start: 01-08-2025 ambulatory Breezy Mello Facility:[facility] Start: 12-27-2024 End: 12-27-[address] Woody Guerrier DO -[facility] Work Phone: Start: 12-27-2024 End: 12-27-[address] Breezy Mello MD Work Phone: [facility] Start: 06-11-2024 End: 06-11-2024 ambulatory Breezy Mello Facility:[facility] Start: 07-19-2022 End: 07-19-2022 ambulatory SEAN PINEDA Facility:[facility] Start: 07-19-2022 End: 07-19-2022 ambulatory Charlene Kaszenia SHIPPING/RECEIVING MANAGER Work Phone: [facility] Comment on above: Osteoarthritis of ri ght hip, unspecified osteoarthritis type (Primary Dx) Start: 07-12-2022 End: 07-12-2022 ambulatory SEAN PINEDA Facility:[facility] Start: 07-12-2022 End: 07-12-2022 ambulatory Charlene Kasmaribellba SHIPPING/RECEIVING MANAGER Work Phone: [facility] Comment on above: Osteoarthritis of ri ght hip, unspecified osteoarthritis type (Primary Dx) Start: 06-28-2022 End: 06-28-2022 ambulatory SHELLEY LEMON Facility:[facility] Start: 06-28-2022 End: 06-28-2022 ambulatory Shelley Lemon PT [facility] Comment on above: Osteoarthritis of ri ght hip, unspecified osteoarthritis type (Primary Dx) Start: 06-06-2022 End: 06-07-2022 ambulatory Sean Pineda Facility:[facility] Start: 06-06-2022 End: 06-07-2022 Evaluation and management of inpatient Sean Garcia [facility] Start: 10-30-2020 End: 10-30-2020 Phone Encounter Monika Anderson DO Work Phone: [facility] Start: 10-30-2020 End: 10-30-2020 Office outpatient visit 15 minutes Monika Anderson DO Work Phone: [facility] Start: 07-24-2020 End: 07-24-2020 Office outpatient visit 15 minutes Monika Anderson DO Work Phone: [facility] Start: 07-10-2020 End: 07-10-2020 Office outpatient visit 10 minutes Monika Welch [facility] Start: 07-01-2018 End: 07-01-2018 Annotation/Addendum Monika Welch Property Appraiser al Medicine Start: 07-01-2018 Review Monika Anderson Compreh [facility]ive [facility] Start: 07-01-2018 End: 07-01-2018 Office outpatient visit 15 minutes Monika Welch [facility] Start: 12-22-2017 End: 12-22-2017 Office outpatient visit 15 minutes Monika Welch [facility] Start: 10-03-2017 End: 10-03-2017 Office outpatient visit 15 minutes Monika Welch [facility] Start: 08-28-2015 End: 08-28-2015 Office outpatient visit 15 minutes Monika Welch [facility] Start: 08-16-2015 End: 08-16-2015 Office outpatient visit 15 minutes Monika Welch [facility] Start: 12-09-2014 End: 12-09-2014 Refill Request Monika Welch Property [facility]raiser [facility] Start: 12-07-2014 End: 12-08-2014 Office outpatient visit 15 minutes Monika Welch [facility] Start: 01-21-2014 End: 01-21-2014 Office outpatient visit 15 minutes Monika Welch [facility] Start: 01-18-2014 End: 01-18-2014 Office outpatient visit 25 minutes Monika Anderson [facility] Start: 03-10-2009 End: 03-10-2009 Patient encounter procedure Monika Justin [facility] Start: 11-10-2008 End: 11-10-2008 Patient encounter procedure Monika Anderson [facility] Start: 10-04-2008 End: 10-04-2008 Patient encounter procedure Monika Anderson [facility] Start: 08-24-2007 End: 08-24-2007 Office outpatient visit 25 minutes Monika Anderson [facility] Start: 03-03-2007 End: 03-03-2007 Patient encounter procedure Monika Anderson [facility] Patient encounter procedure Lela Solano [facility] Work Phone: Procedures Date Procedure Procedure Detail Performing Clinician Start: 06-06-2022 Plain X-ray of right hip Sean Garcia Start: 06-06-2022 Vital Signs PACU Sean Garcia Start: 06-06-2022 Oxygen PACU Zaheer Jama Start: 06-06-2022 Thermometer PACU Zaheer Jama Start: 06-06-2022 Sean Garcia Start: 06-06-2022 Angiocaths Kacy Stark Start: 06-06-2022 Preparation for procedure Kacy Stark Start: 06-06-2022 Thermometer SDS Kacy Stark Start: 06-06-2022 Vital Signs SDS Kacy Stark Start: 05-20-2022 Microscopic urinalysis Sean Garcia Start: 11-07-2020 End: 11-07-2020 Abdomen/Pelvis without Cont Comments: See Note; NOTES: [facility] Imaging Services [address] [place] [address] Abdomen/Pelvis without Cont MR#: [id number] Acct: [id number] Name: YO MAGANA Rebekah Rep #: [id number] : 1955 F 65 From: Kyrie hoang MD PCP: Dr. Monika Anderson, DO Status: REG ER Study: Abdomen/Pelvis without Cont Date of Exam: 10/23 Exam# [id number] Ordering Dr: Tr De Dios MD STUDY: CT ABDOMEN AND PELVIS WITHOUT CONTRAST REASON FOR EXAM: Female, 65 years old. Other, RT ABDOMEN AND GROIN PAINSURGERY:HERNIA REPAIR WITH MESH,TUBAL LIGATION RADIATION DOSAGE (If Supplied By Facility): CTDIvol = ( 15.99 ) mGy, DLP = ( 751.06 ) mGycm TECHNIQUE: Transaxial images were obtained from the dome of the diaphragm to the symphysis pubis without oral contrast, and without intravenous contrast. Sagittal and coronal images were reconstructed. Individualized dose optimization techniques were used for this CT. COMPARISON: CT of abdomen and pelvis dated December 07, 2014 FINDINGS: The visualized lung bases are unremarkable. Reidentification of numerous benign cysts scattered throughout the liver . Small cysts in the uncinate process of the pancreas is unchanged. The remaining aspects of the pancreas are unremarkable. Stable intra-abdominal hernia mesh. Normal gallbladder and extrahepatic biliary system. There is a benign calcified granuloma of the spleen. Normal bilateral adrenal glands. Normal right kidney. Normal left kidney. No radiopaque stones or hydronephrosis is seen. Normal visualized stomach. Normal small intestine. There are multiple colonic diverticula consistent with diverticulosis. The colon is stool-filled. The appendix is visualized and appears normal. There is diffuse atherosclerotic calcification of the abdominal aorta with elongation and tortuosity, but without a demonstrated aneurysm. Normal inferior vena cava. Normal retroperitoneum. Normal urinary bladder. Unremarkable uterus and bilateral adnexal clips. Normal abdominal wall. Normal osseous structures. CT/Abdomen/Pelvis without Cont IMPRESSION: 1. Colonic diverticulosis. Electronically Signed: Kyrie Dominguez MD at 20:44 EDT , Service support , CC: Dr. Monika Anderson DO; Dr. Tr De Dios MD Coil Taper: Signed Monika Anderson DO Work Phone: Start: 11-07-2020 End: 11-07-2020 Emergency Department Summary Comments: See Note; NOTES: [facility] Medical Records Department [address] [place] [address] Emergency Department Summary 11/07/20 MR#: [id number] Acct: [id number] Name: YO MAGANA Rep #: [id number] : 1955 65 From: Tr De Dios MD PCP: Dr. Monika Anderson, DO Status:REG ER Location: ED HPI History of Present Illness Chief Complaint: Abd Pain Narrative Narrative: Patient presents with right lower quadrant abdominal pain some suprapubic pain and some dysuria. She also has some flank pain. Apparently she has had a UTI on and off for the past few months. She is denying any fever or chills she was started on antibiotics a week ago and the dysuria is slightly improving. No nausea or vomiting. PFSH PFSH Home Medications prednisone 50 mg PO DAILY #5 tab 11/07/20 [Rx Last Taken Unknown] Allergy/AdvReac Type Severity Reaction Status Date / Time No Known Allergies Allergy Verified 11/07/20 18:19 Social History Smoking Status: Never smoker ROS ROS ED ROS Narrative Past medical history: Reviewed Medications: Reviewed Social history: Noncontributory Review of systems: All systems negative except as indicated General: No fever Eyes: No visual changes ENT: No upper airway congestion, normal voice Neck: No neck pain Cardiovascular: No chest pain Respiratory: No shortness of breath or cough Gastrointestinal: Abdominal pain and flank pain as in HPI Genitourinary: Urinary symptoms as in HPI Musculoskeletal: The abdominal pain does radiate into the upper thigh region of the right leg. Skin: No rash Neurological: No memory loss, confusion or any focal weakness Psych: No recent behavioral changes Hematologic: No easy bleeding or easy bruising EXAM Physical Exam Narrative Exam Narrative: Physical exam General: Well nourished, Well developed, No Acute Distress Head: Normocephalic, Atraumatic Eyes: Conjunctiva not pale ENT: Moist mucous membranes Neck: Supple, Nontender, No lymphadenopathy Cardiovascular: Regular rate, Regular rhythm Respiratory: No distress, CTA bilaterally Abdomen: Soft, there is some right lower quadrant pain and midline pain. There is no guarding or rebound. Back: Nontender, Normal Inspection. Some tenderness over the right CVA region and lower. Extremities: Some tenderness to palpation anteriorly over the right proximal thigh region, no mass, no infection, neurovascularly intact Skin: Normal color, No rash Neurological: Alert, Normal Strength, Normal Sensation Psychological: Normal affect Const Vital Signs: 11/07/20 18:18 11/07/20 19:36 Temperature 97.2 F L Temperature Source Temporal Pulse Rate 85 59 L Respiratory Rate 17 16 Blood Pressure 118/68 118/73 Blood Pressure Mean 84 88 Pulse Ox 97 100 Oxygen Delivery Method Room Air Room Air MDM MDM MDM Narrative Medical decision making narrative: Patient has an unremarkable work-up I reexamined her she seems to have quite a lot of pain over her IT band as well as posterior buttock region, she has no back pain she has a negative straight leg test, she has no other radicular or neurological symptoms. She may benefit from an orthopedic follow-up otherwise I believe she can be discharged in stable condition. Lab Data Labs: Laboratory Results - last 24 hr 11/07/20 11/07/20 11/07/20 18:36 18:52 18:52 WBC 6.5 RBC 4.39 Hgb 13.4 Hct 41.1 MCV 93.6 MCH 30.5 MCHC 32.6 RDW Std Deviation 47.0 H RDW Coeff of Morenita 13.7 Plt Count 228 MPV 9.0 Immature Gran % (Auto) 0.200 Neut % (Auto) 50.7 Lymph % (Auto) 40.5 Furnas % (Auto) 6.0 Eos % (Auto) 1.7 Baso % (Auto) 0.9 Absolute Neuts (auto) 3.3 Absolute Lymphs (auto) 2.62 Nucleated RBC % 0 Sodium 140 Potassium 3.9 Chloride 106 Carbon Dioxide 28.0 Anion Gap 6 BUN 15 Creatinine 0.92 Estim Creat Clear Calc 57.83 Est GFR (MDRD) Af Amer 79 Est GFR (MDRD) Non-Af 65 BUN/Creatinine Ratio 16.3 Glucose 94 Calcium 9.2 Total Bilirubin 0.50 AST 20 ALT 29 Alkaline Phosphatase 74 Total Protein 8.1 Albumin 3.7 Globulin 4.4 H Albumin/Globulin Ratio 0.8 L Urine Color Yellow Urine Clarity Clear Urine pH 6.0 Ur Specific Bowie 1.010 Urine Protein Negative Urine Glucose (UA) Normal Urine Ketones Negative Urine Occult Blood 25 H Urine Nitrite Negative Urine Bilirubin Negative Urine Urobilinogen Normal Ur Leukocyte Esterase Negative Urine RBC 0 SEEN Urine WBC 0 SEEN Ur Squamous Epith Cells 0-5 SEEN Urine Bacteria 0 SEEN Urine Mucus 0 SEEN Radiography Diagnostic Testing: Radiology Impression Abdomen/Pelvis CT 11/07/20 18:43 IMPRESSION: 1. Colonic diverticulosis. Electronically Signed: Kyrie Dominguez MD at 20:44 EDT , Service support , Discharge Plan Triage Chief Complaint: Abd Pain ED Provider: Tr De Dios Dx/Rx/DC Orders Clinical Impression: Abdominal pain, Acute leg pain Instructions: Abdominal Pain, RICE Prescriptions: New prednisone 50 mg tablet 50 mg PO DAILY Qty: 5 RF: 0 Primary Care Provider: Monika Anderson Referrals: Monika Anderson DO [Primary Care Provider] - Abelino Nicholson MD [STAFF PHYSICIAN] - 3-5 Days What to do if you have Problems For any increased pain, shortness of breath, bleeding, nausea or vomiting, chest pain, or any unexpected problems, contact your Primary Care Provider. Call rumr: turn off the lights Registry ([phone]) or report to the closest Emergency Room. Call 911 if necessary. 11/07/202121 <Electronically signed by Tr De Dios MD> Cosigner Signature (if applicable): CC: Dr. Monika Anderson DO Signed Monika Anderson DO Work Phone: Start: 10-23-2017 End: 10-23-2017 Downtime Report Comments: See Note; NOTES: [facility] Medical Records Department [address] [place] [id number] Downtime Report MR#: [id number] Acct: [id number] Name: YO MAGANA Rep #: [id number] : 1955 61 From: Lars Jama PCP: Care Physician, No Primary Status: REG CLI This patient was seen during an EMR downtime October 06, 2017 - October 13, 2017. This patient may have a combination of paper and electronic documentation or all paper documentation. All documentation is viewable within the e-chart portion of [employer] for each patient visit. Monika Anderson Start: 10-13-2017 End: 10-16-2017 Spine Lumbar (Routine) Comments: See Note; NOTES: [facility] Imaging Services [address] [place] [address] Spine Lumbar (Routine) MR#: [id number] Acct: [id number] Name: YO MAGANA Rep #: [id number] : 1955 F 61 From: Antonio Green DO PCP: Care Physician, No Primary Status: REG CLI Study: Spine Lumbar (Routine) Date of Exam: 10/13/17 Exam# [id number] Ordering Dr: Monika Anderson DO STUDY: MRI LUMBAR SPINE WITHOUT CONTRAST REASON FOR EXAM: Female, 61 years old. Low back pain, radiates to right leg. TECHNIQUE: Standardized fat and water weighted pulse sequences were obtained in the sagittal and axial planes. COMPARISON: None FINDINGS: T12-L1: Disc desiccation and decreased disc space with circumferential disc bulge without significant spinal canal narrowing or foraminal narrowing. Normal lumbar lordosis. There is no substantial scoliosis. Normal conus medullaris that terminates at the T12 level. L1-2: Disc desiccation and mild decreased disc space with circumferential disc bulge. There is mild bilateral foraminal narrowing and lateral recess narrowing at this level. L2-3: Decreased disc space and circumferential disc bulge is present without significant foraminal narrowing. There is mild lateral recess narrowing at this level. L3-4: Disc desiccation and disc osteophyte complex with compounding facet hypertrophy resulting in severe spinal canal narrowing and lateral recess narrowing at this level. There is mild bilateral foraminal narrowing. L4-5: Decreased disc space and circumferential disc bulge with compounding facet hypertrophy results in moderate right and severe left lateral recess narrowing and moderate spinal canal narrowing. There is mild right and moderate left foraminal narrowing present. L5-S1: Decreased disc space and endplate degenerative change with disc osteophyte complex and disc bulge resulting in mild left foraminal narrowing without significant spinal canal narrowing. There is moderate left and mild right lateral recess narrowing. Normal visualized sacral ala. Normal visualized paraspinous soft tissue structures. MRI/Spine Lumbar (Routine) IMPRESSION: 1. L3/4 severe spinal canal narrowing and lateral recess narrowing, clinically correlate for descending L4 nerve root radiculopathy. 2. L4/5 moderate right and severe left lateral recess narrowing with moderate spinal canal narrowing as above. 3. Additional degenerative changes as above. Electronically Signed: Antonio Green DO at 22:34 EDT , Service support , CC: No Primary Care Physician; Monika Anderson DO Coil Taper: Signed Monika Anderson Work Phone: Start: 10-13-2017 End: 10-16-2017 Venous Duplex Lower Extremity Comments: See Note; NOTES: [facility] Cardiovascular Services [address] [place] [address] Venous Duplex US, Unilateral 10/03/17 1604 MR#: [id number] Acct: [id number] Name: YO MAGANA Rep #: [id number] : 1955 61 From: Bj Cornell MD Attending Dr: Monika Anderson DO Status: REG CLI Ordering Dr: Monika Anderson DO Date: 10/03/17 Location: [facility] Sex: F C Admitted: Reason For Study: LEG PAIN RIGHT LEFT GSV is normal. CFV is compressible, spontaneous, phasic, CFV is compressible, spontaneous, phasic, competent, and demonstrates normal competent and demonstrates normal augmentation. augmentation. FV is compressible, spontaneous, phasic, competent and demonstrates normal augmentation. POP V is compressible, spontaneous, phasic, competent and demonstrates normal augmentation. T/P Trunk is compressible. PTV is compressible. RT PerV is compressible. Procedure Exam performed in department. A preliminary report was called and/or faxed to Dr. Anderson. Interpretation Summary Deep veins of the right lower extremity are patent and compressible segmentally. There is no evidence of right lower extremity deep vein thrombosis. Valvular competence appears intact within the proximal deep venous system on the right . The right greater saphenous vein appears patent and compressible segmentally. Ordering Physician: Monika Anderson Referring Physician: Monika Anderson Performed By: Gwen Hopper RVT 10/13/17822 Date Bj Cornell MD CC: No Primary Care Physician; Monika Anderson DO Date Dictated: 10/03/17 1604 Date Transcribed: 10/13/17822 Coil Taper: Signed Monika Anderson Work Phone: Start: 10-09-2016 End: 10-09-2016 Emergency Department Summary Comments: See Note; NOTES: [facility] Medical Records Department [address] [place] [id number] Emergency Department Summary MR#: [id number] Acct: [id number] Name: YO MAGANA Rep #: [id number] : 1955 60 From: Ambrocio Quinonez MD PCP: Care Physician,No Primary Status: DEP ER DATE OF SERVICE: 10/09/2016 HISTORY OF PRESENT ILLNESS: A 60-year-old woman, who presents with bilateral lower abdominal pain radiating to her anterior thighs and mid low back. She states she scrubbed a lot yesterday. She has been seen several times for abdominal pain and has had 2 CAT scans and a MRI, which were nondiagnostic. She denies fever, chills, or night sweats. She denies weight gain or weight loss. She denies any cardiac or respiratory symptoms. She denies nausea, vomiting, diarrhea, or constipation. She denies dysuria, frequency, urgency, or hematuria. She denies any vaginal bleeding or prolapse. She is status post tubal ligation. She denies any bulges. She did have an umbilical hernia, which was repaired with mesh. After the patient was informed of the results of her workup, she asked why a pelvic exam was not performed. I informed her since she has a history and physical consistent with musculoskeletal pain and no gynecologic symptoms, a pelvic exam is not indicated. PAST MEDICAL HISTORY: Umbilical hernia and bilateral tubal ligation. PRIMARY CARE PHYSICIAN: Monika Anderson DO PHYSICAL EXAMINATION: VITAL SIGNS: Normal. She is afebrile. GENERAL: She is slightly heavyset. HEENT: Unremarkable. NECK: Supple. There are no carotid bruits. Trachea is midline. LUNGS: Clear to auscultation. HEART: Regular without murmur, gallop, or rub. ABDOMEN: Slightly distended, tympanitic with minimal tenderness. Her exam is inconsistent with regards to tenderness. There is no evidence of umbilical or inguinal hernia. There is no inguinal lymphadenopathy. There is no evidence of trauma. There are no lesions to suggest herpes varicella zoster. Having her raised her right or left lower extremity causes her pain. She has no neurovascular findings of the lower extremity. EMERGENCY DEPARTMENT COURSE: Three view x-ray was obtained because of prior history of abdominal surgery with distention, tympania and decreased bowel sounds. Nonspecific gas pattern was noted with increased fecal matter in ascending colon. CBC and electrolyte panel are unremarkable. The patient was offered pain medicine at the beginning of her visit and prior to discharge and she declined. IMPRESSION: 1. Abdominal muscle wall strain. 2. Constipation. MD Yanci Johnston C: Monika Anderson DO T: NTS JOB: [id number] 10/09/16 1359 <Electronically signed by Ambrocio Quinonez MD> Date Ambrocio Quinonez MD Cosigner Signature (If Indicated): Date CC: Monika Anderson DO; No Primary Care Physician Date Dictated: 10/09/16 1012 Date Transcribed: 10/09/16 1012 Coil Taper: Signed Monika Anderson Start: 08-16-2015 End: 08-17-2015 [employer] Decub and/or Erect Comments: See Note; NOTES: [facility] Imaging Services [address] [place] [place] [address] Verdana 4d [employer] Decub and/or Erect MR#: [id number] Acct: [id number] Name: YO MAGANA Rep #: [id number] : 1955 F 59 From: Jorge Naranjo MD PCP: Rose Rogers MD Status: REG CLI Study: [employer] Inc Decub and/or Erect Date of Exam: 08/16/15 Exam# [id number] Ordering Dr: Monika Anderson DO STUDY: X-RAY - ABDOMEN/PELVIS REASON FOR EXAM: Female, 59 years old. Lower abdominal pain. 2 day history of diarrhea. TECHNIQUE: AP supine and upright views of the abdomen and pelvis. COMPARISON: None. FINDINGS: Normal visualized lung bases. There appears to be a haustral thickening of the colon. Colitis should be ruled out. There is no demonstrated free abdominal air. The visualized liver, spleen and kidneys are grossly normal in size and morphology. Prior tubal ligation and anterior abdominal hernia repair. Several metallic pins are seen projecting over the upper abdomen. These most likely are within the patient's clothing. There are diffuse degenerative changes of the visualized lumbar spine. There is evidence of osteoarthritis involving both hip joints worse on the right side with degenerative spurring. There may be an element of femoral acetabular impingement on the right side. IMPRESSION: Also both thickening of the haustral pattern of the colon as described. Clinical correlation is recommended. Electronically Signed: Jorge Naranjo MD at 13:02 EDT Tel [phone], Service support [phone], RAD/[employer] Decub and/or Erect IMPRESSION: Also both thickening of the haustral pattern of the colon as described. Clinical correlation is recommended. Electronically Signed: Jorge Naranjo MD at 13:02 EDT Tel [phone], Service support [phone], CC: Rose Rogers MD; Monika Anderson DO Coil Taper: Signed Monika Anderson Work Phone: Start: 12-07-2014 End: 12-07-2014 Abdomen/Pelvis without Cont Comments: See Note; NOTES: [facility] Imaging Services [address] [place] [id number] CAT Scan Report MR#: [id number] Acct: [id number] Name: YO MAGANA Rep #: [id number] : 1955 F 59 From: Jorge Naranjo MD PCP: Rose Rogers MD Status: REG CLI Study: Abdomen/Pelvis without Cont Date of Exam: 12/07/14 Exam# [id number] Ordering Dr: Angela Arechiga DO STUDY: CT ABDOMEN AND PELVIS WITHOUT CONTRAST REASON FOR EXAM: Female, 59 years old. Left lower quadrant pain. RADIATION DOSAGE (If Supplied By Facility): CTDIvol = ( 19.56 ) mGy, DLP = ( 981.46 ) mGycm TECHNIQUE: Transaxial images were obtained from the dome of the diaphragm to the symphysis pubis without oral contrast, and without intravenous contrast. Sagittal and coronal images were reconstructed. COMPARISON: Comparison is made with prior examination dated January 18, 2014. FINDINGS: The visualized lung bases are unremarkable. The visualized portions of the heart are within normal limits. Stable small hepatic cysts. Normal gallbladder and extrahepatic biliary system. Normal spleen. Stable 1.5 cm cystic nodule in the head of the pancreas. Normal bilateral adrenal glands. Normal right kidney. Normal left kidney. Normal visualized stomach. Normal small intestine. Normal colon. The appendix is visualized and appears normal. Normal abdominal aorta. Normal inferior vena cava. Normal retroperitoneum. Normal urinary bladder. The patient is status post bilateral tubal ligation. There is a 3.1 cm x 2.5 cm cystic nodule in the posterior aspect of the left hemipelvis adjacent to the sacrum. There is a similar appearing cystic nodule on the right side of the sacrum measuring 1.4 cm. These are unchanged. There is evidence of prior ventral hernia repair. A mesh is seen. There are diffuse degenerative changes of the visualized lumbar spine. IMPRESSION: Stable examination. Electronically Signed: Jorge Naranjo MD at 16:15 EDT Tel [phone], Service support [phone], CC: Rose Rogers MD; Angela Arechiga DO Coil Taper: Signed Angela Arechiga Work Phone: Start: 01-18-2014 End: 01-18-2014 Abdomen/Pelvis WITH Contrast Comments: See Note; NOTES: [facility] Imaging Services [address] [place] [address] CAT Scan Report MR#: [id number] Acct: [id number] Name: YO MAGANA Rep #: [id number] : 1955 F 58 From: Harley Adam MD PCP: Rose Rogers MD Status: REG CLI Study: Abdomen/Pelvis WITH Contrast Date of Exam: 01/18/14 Exam# [id number] Ordering Dr: Debra Collins STUDY: CT ABDOMEN AND PELVIS WITH CONTRAST REASON FOR EXAM: Female, 58 years old. Pelvic and right flank pain. Previous hernia repair. RADIATION DOSAGE (If Supplied By Facility): CTDIvol = ( 15.28 ) mGy, DLP = ( 1896.60 ) mGycm TECHNIQUE: Transaxial images were obtained from the dome of the diaphragm to the symphysis pubis without oral contrast. 100ml ml of Isovue 300 contrast was administered. Sagittal and coronal images were reconstructed. COMPARISON: 03/10/09 FINDINGS: The visualized lung bases are unremarkable. The visualized portions of the heart are within normal limits. There is elongation of the right lobe of the liver consistent with a Symone's lobe. Stable small liver cysts are seen. Normal gallbladder and extrahepatic biliary system. Normal spleen. A cystic structure in the head of the pancreas increased size from 1.3-1.6 cm. Suggest thin section dynamic contrast imaging of the pancreas. This is most likely an incidental cyst but cannot exclude a cystic neoplasm. Normal bilateral adrenal glands. Normal right kidney. Normal left kidney. Incidentally noted are small subcentimeter simple cysts bilaterally. Normal visualized stomach. Normal small intestine. Normal colon. The appendix is visualized and appears normal. The abdominal aorta shows elongation and tortuosity, but without a demonstrated aneurysm. Normal inferior vena cava. Normal retroperitoneum. Normal urinary bladder. Normal visualized uterus. A small umbilical hernia seen containing fat. There has been repair of the previous lower abdominal wall hernia, with mesh and peritoneal tacks, and no evidence of current hernia seen. There are diffuse degenerative changes of the visualized lumbar spine. IMPRESSION: Small cystic lesion in the head of the pancreas is larger than on the previous exam. Suggest further evaluation. There has been repair of previous abdominal wall hernia with no evidence of recurrence. Electronically Signed: Harley Adam MD at 17:12 EDT Tel , Service support [phone], CC: Debra Collins; Rose Rogers MD Coil Taper: Signed Debra Collins Work Phone: Plan of Treatment Date Care Activity Detail Author Start: 12-27-2024 Plain x-ray of pelvi s and lower extremity HIP, UNI W/ Pelvis 2-3 Views [facility] Start: 12-27-2024 XR Pelvis and Hip Views [facility] Start: 05-05-2022 ADVANCE DIRECTIVE DISCUSSION ADVANCE DIRECTIVE DISCUSSION [facility] Start: 05-05-2022 DEPRESSION ASSESSMENT DEPRESSION ASS ESSMENT [facility] Start: 01-03-2022 Influenza vaccination INFLUENZA (#1) [facility] Start: 2021 BONE DENSITY BONE DENSITY [facility] Start: 2021 PNEUMOCOCCAL: 65+ (1 - PCV) PNEUMOCOCCAL: 65+ (1 - PCV) [facility] Start: 10-30-2020 Procedure Education Eprescribe d prescriptions (G8553) [facility]; [facility] Work Phone: Start: 10-30-2020 Culture bct isol&prsmptv id isolate ea urine URINE PATRICK CULTURE-IDENTIFICATN (75919) [facility]; [facility] Work Phone: Start: 07-24-2020 Procedure Education Eprescribe d prescriptions (G8553) [facility]; [facility] Work Phone: Start: 07-10-2020 Procedure Education Eprescribe d prescriptions (G8553) [facility]; [facility] Work Phone: Start: 07-10-2020 Provider Instruction s for Treatment [facility]; [facility] Work Phone: Start: 07-01-2018 Procedure Education Eprescribe d prescriptions (G8553) [facility]; [facility] Work Phone: Start: 07-01-2018 Provider Instruction s for Treatment Follow up as needed for knee and joint pain [facility]; [facility] Work Phone: Start: 08-28-2015 Provider Instruction s for Treatment [facility]; [facility] Work Phone: Start: 08-28-2015 C-reactive protein C-REACTIVE PROTEIN (90716) [facility]; [facility] Work Phone: Start: 08-28-2015 CRP mass conc C-REACTIVE PRO TEIN (37286) [facility] Work Phone: Start: 08-16-2015 Provider Instruction s for Treatment [facility]; [facility] Work Phone: Start: 12-07-2014 Blood count complete auto&auto difrntl wbc CBC W/AUTO DIFF WBC (98073) [facility] Work Phone: Comment on above: stat Start: 12-07-2014 C-reactive protein C-REACTIVE PROTEIN (74212) [facility]; [facility] Work Phone: Comment on above: stat Start: 12-07-2014 CRP mass conc C-REACTIVE PRO TEIN (34171) [facility] Work Phone: Comment on above: stat Start: 12-07-2014 Comprehensive metabo lic panel METABOLIC PANEL, COMPREHENSIVE (72189) [facility] Work Phone: Comment on above: stat Start: 12-07-2014 Procedure Education Eprescribe d prescriptions (G8553) [facility]; [facility] Work Phone: Start: 01-21-2014 Provider Instruction s for Treatment Follow up - Make appt after diagnostic tests [facility]; [facility] Work Phone: Start: 01-18-2014 Comprehensive metabo lic panel Metabolic Panel, Comprehensive (11115) [facility] Work Phone: Comment on above: getting stat CT Start: 01-18-2014 Blood count complete auto&auto difrntl wbc CBC, Platelets & Auto Diff (48351) [facility] Work Phone: Start: 01-18-2014 Assay of lipase LIPASE (35612) [facility] Work Phone: Start: 01-18-2014 Amylase enzyme act/vol AMYLASE (8215 0) [facility] Work Phone: Start: 01-18-2014 Assay of amylase AMYLASE (49726) [facility]; [facility] Work Phone: Start: 03-10-2009 Blood count manual c ell count each CBC WITH MANUAL DIFF (41116) [facility] Work Phone: Start: 03-10-2009 Ova&parasites direct smears concentration & id OVA & PARASITE DIR SMEAR (23833) [facility] Work Phone: Start: 03-10-2009 Blood occult peroxid ase actv qual feces 1 deter OCCULT BLOOD FECES SCREEN (81551) [facility] Work Phone: Start: 03-10-2009 Culture bacterial an y source anaerobic iso&id C-DIFFICILE, STOOL (53174) [facility] Work Phone: Start: 03-10-2009 Leukocyte assmt feca l qual/semiquantitative LEUKOCYTE COUNT, FECAL (35641) [facility] Work Phone: Start: 03-10-2009 Cul bact stool aerob ic isol salmonella&shigell PATRICK CULTURE-STOOL (48327) [facility] Work Phone: Start: 03-10-2009 Provider Instruction s for Treatment [facility]; [facility] Work Phone: Start: 11-10-2008 Provider Instruction s for Treatment [facility]; [facility] Work Phone: Start: 11-10-2008 Cytp cerv/vag auto t hin layer prep mnl screen Thin prep Pap (72743) [facility] Work Phone: Start: 03-03-2007 Provider Instruction s for Treatment Antibiotic Usage Education - Female [facility]; [facility] Work Phone: Start: 2006 SHINGRIX VACCINE (1 of 2) SHINGRIX VACCINE (1 of 2) [facility] Start: 2001 COLOGUARD (FIT-DNA) COLOGUARD (FIT-D NA) [facility] Start: 2001 Colonoscopy COLONOSCOPY [facility] Start: 2001 COLORECTAL CANCER SCREENING COLORECTAL CANCER SCREENING [facility] Start: [address] COLONOGRAPHY [facility] Start: 2001 DIABETES SCREEN DIABETES SCREEN [facility] Start: 2001 FECAL OCCULT BLOOD FECAL OCCULT BLOO D [facility] Start: 2001 LIPID SCREEN LIPID SCREEN [facility] Start: 2001 SIGMOIDOSCOPY SIGMOIDOSCOPY [facility] Start: 1996 Mammography MAMMOGRAM [facility] Start: 10-26-1975 Urine microalbumin profile DTAP,TDAP,TD (1 - Tdap) [facility] Start: 1974 HEPATITIS C SCREENING HEPATITIS C SC REENING [facility] Start: 1974 HIV SCREENING HIV SCREENING [facility] Start: 04-26-1957 COVID-19 VACCINE (#1) COVID-19 VACCI NE (#1) [facility] Patient Education DI for Hip Replacement [facility] Work Phone: [facility] Work Phone: [facility] Work Phone: [facility] Work Phone: [facility] Work Phone[facility] Work Phone: [facility] Work Phone: [facility] Work Phone: [facility] Work Phone: [facility] Work Phone: [facility] Work Phone: [facility] Work Phone: [facility] Payers Date Payer Category Payer Self-pay 2022 Unknown [id number] Unknown [id number] [id number] Unknown [id number] Unknown [id number] 2.16.8 [id number] Unknown [id number] 2.16.8 [id number] Unknown [id number] 2.16.8 [id number] Unknown [id number] 2.16.8 [id number] Unknown [id number] 2.16.8 [id number] Social History Date Type Detail Facility Caffeine Use Unknown if ever smoked [facility] Work Phone: Comment on above: 1-3 cups qd Self-employed, owns [employer] , Lives with spouse Start: 12-27-2024 Tobacco smoking status NHIS Never smoked tobacco [facility] Start: 10-09-2016 Alcohol intake 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 Author Type: Physical Therapist Type: Progress Notes Filed: 10/07/2022 4:55 PM Note Text: 10/07/2022 [facility] PHYSICAL THERAPY DISCONTINUANCE OF CARE Plan of Care Period: Start of Care Date: 06/28/22 Last Visit Date: 07/19/2022 Therapy Program: The following is a summary of the interventions provided for this episode of care; Therapeutic exercise and Patient/Family/Caregiver Education Assessment: Based on most recent visit, patient was progressing as expected toward functional goals based on pain levels and documented subjective information on progress. Unable to formally assess goal achievement, as patient has not returned to therapy or scheduled additional follow-up appointments. Reason for Discontinuation of Care: Patient has not returned to therapy or scheduled additional follow-up appointments. Shelley Cruz PT [facility] 07-19-2022 Note HNO ID: [id number] Author: Shelley Cruz PT Service: ? Author Type: Physical Therapist Type: Progress Notes Filed: 07/19/2022 4:50 PM Note Text: Episode Visit Count: 3 Therapist That Will Accept/Oversee The Plan Of Care: Shelley Cruz Start of Care Date: 06/28/22 Onset Date: 06/06/22 Patient Identified by Name and Date of : Yes REHABIL[facility]ATION AND SPORTS [facility]ERAPY PHYSICAL THERAPY TREATMENT NOTE ASSESSMENT: Yo Magana tolerated the session with fatigue and expected muscle soreness. She demonstrated improvements in standing endurance with exercise. The patient will continue to benefit from ongoing skilled physical therapy to progress toward set goals. PLAN FOR NEXT VISIT: Continue per plan of care. SUBJECTIVE: Patient Reason for Visit: Pt reports that her hip is feeling good but her back is really bothering her today. Pain: Pain Pain Level: 0 Pain Location: Hip - Right Post Treatment Pain Post Treatment Pain Level: No Change Post Treatment Pain Location: Hip - Right Post Treatment Symptoms: pt denied back pain at the end of her session. OBJECTIVE MEASURES WITH LEVEL OF FUNCTION: Pt challenged with alt marching at parallel bars. TREATMENT: Therapeutic Exercise: 1: Scifit Seated stepper seat #11 x 5 minutes (subjective collected) 2: *Standing hip abduction 1x10 B 3: *Standing alt marching 1x10 B 4: Step ups on green step 2x10 5: Seated LAQ 2x10 RLE 6: *Hip adduction ball squeeze 2x10 Skilled Intervention: Patient was educated in proper exercise technique and purpose for exercises. Reviewed and educated patient on additions/changes for home exercise program as above (*). Skilled judgment was provided in selection of appropriate interventions. Provided written instruction for home exercise program to facilitate proper performance and compliance. Correct performance of therapeutic exercises was facilitated with verbal and visual cuing. Billing Therapeutic Exercise Treatment Minutes: 40 Total Treatment Time Minutes (timed/untimed): 40 Charlene Vicente, SHIPPING/RECEIVING MANAGER Shelley Cruz, PT [facility] 07-19-2022 History of Present illness Narrative Episode Visit Count: 3 Therapist That Will Accept/Oversee The Plan Of Care: Shelley Cruz Start of Care Date: 06/28/22 Onset Date: 06/06/22 Patient Identified by Name and Date of : Yes REHABILITATION AND SPORTS THERAPY PHYSICAL THERAPY TREATMENT NOTE ASSESSMENT: Yo Magana tolerated the session with fatigue and expected muscle soreness. She demonstrated improvements in standing endurance with exercise. The patient will continue to benefit from ongoing skilled physical therapy to progress toward set goals. PLAN FOR NEXT VISIT: Continue per plan of care. SUBJECTIVE: Patient Reason for Visit: Pt reports that her hip is feeling good but her back is really bothering her today. Pain: Pain Pain Level: 0 Pain Location: Hip - Right Post Treatment Pain Post Treatment Pain Level: No Change Post Treatment Pain Location: Hip - Right Post Treatment Symptoms: pt denied back pain at the end of her session. OBJECTIVE MEASURES WITH LEVEL OF FUNCTION: Pt challenged with alt marching at parallel bars. TREATMENT: Therapeutic Exercise: 1: Scifit Seated stepper seat #11 x 5 minutes (subjective collected) 2: *Standing hip abduction 1x10 B 3: *Standing alt marching 1x10 B 4: Step ups on green step 2x10 5: Seated LAQ 2x10 RLE 6: *Hip adduction ball squeeze 2x10 Skilled Intervention: Patient was educated in proper exercise technique and purpose for exercises. Reviewed and educated patient on additions/changes for home exercise program as above (*). Skilled judgment was provided in selection of appropriate interventions. Provided written instruction for home exercise program to facilitate proper performance and compliance. Correct performance of therapeutic exercises was facilitated with verbal and visual cuing. Billing Therapeutic Exercise Treatment Minutes: 40 Total Treatment Time Minutes (timed/untimed): 40 ADELAIDE Velasquez PT documented in this encounter [facility] 07-12-2022 Note HNO ID: [id number] Author: Shelley Cruz PT Service: ? Author Type: Physical Therapist Type: Progress Notes Filed: 07/12/2022 1:14 PM Note Text: Episode Visit Count: 2 Therapist That Will Accept/Oversee The Plan Of Care: Shelley Cruz Start of Care Date: 06/28/22 Onset Date: 06/06/22 Patient Identified by Name and Date of : Yes REHABILITATION AND SPORTS THERAPY PHYSICAL THERAPY TREATMENT NOTE ASSESSMENT: Yo Maagna tolerated the session with fatigue. She demonstrated improvements in endurance with exercise. The patient will continue to benefit from ongoing skilled physical therapy to progress toward set goals. PLAN FOR NEXT VISIT: May add standing exercises SUBJECTIVE: Patient Reason for Visit: Pt reports that her hip is feeling alot better. Pt reports still having intermittent pain. Pt stated wlaking out to her mailbox and back about 200 ft. Pain: Pain Pain Level: 0 Pain Location: Hip - Right Frequency: Intermittent Post Treatment Pain Post Treatment Pain Level: No Change Post Treatment Pain Location: Hip - Right OBJECTIVE MEASURES WITH LEVEL OF FUNCTION: Pt able to complete supine hip abduction without assistance. TREATMENT: Therapeutic Exercise: 1: Scifit Seated stepper seat #11 x 5 minutes (subjective collected) 2: quad sets 2x5 3: gluteal sets 2x10 4: heel slides (slide boot) 2 x 10 5: seated LAQ x 10 6: *supine hip abduction (slide boot) 2x10 7: *STS with use of hands 1x5 Skilled Intervention: Patient was educated in proper exercise technique and purpose for exercises. Reviewed and educated patient on additions/changes for home exercise program as above (*). Skilled judgment was provided in selection of appropriate interventions. Provided written instruction for home exercise program to facilitate proper performance and compliance. Correct performance of therapeutic exercises was facilitated with verbal and visual cuing. Billing Therapeutic Exercise Treatment Minutes: 43 Total Treatment Time Minutes (timed/untimed): 43 Charlene Lindsayzenia, SHIPPING/RECEIVING MANAGER Shelley Cruz, PT [facility] 07-12-2022 History of Present illness Narrative Episode Visit Count: 2 Therapist That Will Accept/Oversee The Plan Of Care: Shelley Cruz Start of Care Date: 06/28/22 Onset Date: 06/06/22 Patient Identified by Name and Date of : Yes REHABILITATION AND SPORTS THERAPY PHYSICAL THERAPY TREATMENT NOTE ASSESSMENT: oY Magana tolerated the session with fatigue. She demonstrated improvements in endurance with exercise. The patient will continue to benefit from ongoing skilled physical therapy to progress toward set goals. PLAN FOR NEXT VISIT: May add standing exercises SUBJECTIVE: Patient Reason for Visit: Pt reports that her hip is feeling alot better. Pt reports still having intermittent pain. Pt stated wlaking out to her mailbox and back about 200 ft. Pain: Pain Pain Level: 0 Pain Location: Hip - Right Frequency: Intermittent Post Treatment Pain Post Treatment Pain Level: No Change Post Treatment Pain Location: Hip - Right OBJECTIVE MEASURES WITH LEVEL OF FUNCTION: Pt able to complete supine hip abduction without assistance. TREATMENT: Therapeutic Exercise: 1: Scifit Seated stepper seat #11 x 5 minutes (subjective collected) 2: quad sets 2x5 3: gluteal sets 2x10 4: heel slides (slide boot) 2 x 10 5: seated LAQ x 10 6: *supine hip abduction (slide boot) 2x10 7: *STS with use of hands 1x5 Skilled Intervention: Patient was educated in proper exercise technique and purpose for exercises. Reviewed and educated patient on additions/changes for home exercise program as above (*). Skilled judgment was provided in selection of appropriate interventions. Provided written instruction for home exercise program to facilitate proper performance and compliance. Correct performance of therapeutic exercises was facilitated with verbal and visual cuing. Billing Therapeutic Exercise Treatment Minutes: 43 Total Treatment Time Minutes (timed/untimed): 43 Charlene LindsayADELAIDE knutson PT documented in this encounter [facility] 06-28-2022 Note HNO ID: [id number] Author: Shelley Cruz PT Service: ? Author Type: Physical Therapist Type: Progress Notes Filed: 06/28/2022 4:36 PM Note Text: Episode Visit Count: 1 Therapist That Will Accept/Oversee The Plan Of Care: Shelley Cruz Start of Care Date: 06/28/22 Onset Date: 06/06/22 Patient Identified by Name and Date of : Yes REHABILITATION AND SPORTS THERAPY PHYSICAL THERAPY EVALUATION PLAN OF CARE: Assessment: Yo Magana presents with diagnosis of R hip OA with s/p R EMMY that interferes with walking in the community, physical activities, sleeping . She presents with impairments in gait, overall function, range of motion, and strength. Prognosis for therapy is Good due to: current objective clinical presentation, good overall health status, good support system/ coping skills, Prognosis may be limited due to multiple co- morbidities (low back pain) . She will benefit from skilled therapy services to meet the goals established for this plan of care as noted below. Goals for Episode of Care: created on 06/28/22 through 08/26/22 [place] in home exercise program. Patient will decrease pain rating by 2 points to meet minimal clinical important difference for numeric pain rating scale. Patient will increase active ROM of R hip to 90 deg flex, 45 deg abd to allow pt to to improve performance of ADLs. Patient will demonstrate increase in R LE strength to 4+ to 5/5 during manual muscle testing in order to improve function for home management tasks and prior functional tasks. Perform walking in the community;physical activities;sleeping; without pain. Patient will Improve Timed Up and Go to <12 seconds to demonstrate decreased risk of falling. Patient will improve 5 time sit to stand to demonstrate improvement in functional lower extremity strength. Normal gait. Reciprocal stair negotiation. Patient Goals: To walk normal again and do everything I need to do. Planned Interventions, Frequency, and Duration: Current Frequency: 1x/week Duration: 8 weeks Total Number of Visits Planned: 8 Planned Treatment Interventions: Therapeutic exercise (45128), Neuromuscular re-education (87524), Manual therapy (43451), Gait Training (03796), Patient/Family/Caregiver Education PLAN FOR NEXT VISIT: Assess response to HEP. May assess hip abduction to 45deg. may progress exercises in standing or sitting postions to tolerance. May continue gait instruct with cane. Patient demonstrates good understanding of plan of care and treatment. The above goals and plan of care were discussed and agreed upon by patient/family. SUBJECTIVE: Yo Magana is a 66 year old female seen today for Pt reports history of low back pain and hip pain. She underwent R EMMY on 06/06/22. She currently is walking with a front wheeled walker independently at home. She notes she used a cane today as she wasn't sure how she would manage getting a walker in and out of the vehicle with her. She is currently sleeping in a recliner chair as she has pain when lying flat. Patient Goals: To walk normal again and do everything I need to do. Functional Limitations: walking in the community, physical activities, sleeping Prior Level of Function: Independent with restrictions Relevant History Past Relevant Surgical Conditions: Comments Relevant Surgical Conditions Comments: Pt describes previous low back surgery and hernia repair. Employment: Homemaker Home Environment Patient Lives With: Family Home Type: (Steps to enter home with railing. Pt reports she is able to negotiate using cane and railing. Has been using walker in home.) Intake Information: Prescription present Previous Treatment: Physical Therapy (instructe din exercises prior to leaving the hospital) Pain: Pain Pain Level: 3 Pain Location: Hip - Right Description: Sore Post Treatment Pain Post Treatment Pain Level: No Change PROMIS Scales T-scores: mean of general population = 50. 5 points is clinically meaningfully difference Percentiles provide an indication of how the patient's score ranks in relation to the general population. Higher percentile rankings indicate better function/quality of life. 50th percentile is the average of the general population and indicates half of respondents had a worse score. T-scores: mean of general population = 50. 5 points is clinically meaningfully difference Percentiles provide an indication of how the patient's score ranks in relation to the general population. Higher percentile rankings indicate better function/quality of life. 50th percentile is the average of the general population and indicates half of respondents had a worse score. OBJECTIVE MEASURES WITH LEVEL OF FUNCTION: LE AROM R Knee Extension: 0 Degrees R Ankle Dorsiflexion: 8 Degrees R Ankle Plantar Flexion: 45 Degrees L Hip Flexion: 110 Degrees L Ankle Dorsiflexion: 8 Degrees L Ankle Plantar Flex (more content not included)... [facility] 06-28-2022 History of Present illness Narrative Episode Visit Count: 1 Therapist That Will Accept/Oversee The Plan Of Care: Shelley Cruz Start of Care Date: 06/28/22 Onset Date: 06/06/22 Patient Identified by Name and Date of : Yes REHABILITATION AND SPORTS THERAPY PHYSICAL THERAPY EVALUATION PLAN OF CARE: Assessment: Yo Magana presents with diagnosis of R hip OA with s/p R EMMY that interferes with walking in the community, physical activities, sleeping . She presents with impairments in gait, overall function, range of motion, and strength. Prognosis for therapy is Good due to: current objective clinical presentation, good overall health status, good support system/ coping skills, Prognosis may be limited due to multiple co- morbidities (low back pain) . She will benefit from skilled therapy services to meet the goals established for this plan of care as noted below. Goals for Episode of Care: created on 06/28/22 through 08/26/22 [place] in home exercise program. Patient will decrease pain rating by 2 points to meet minimal clinical important difference for numeric pain rating scale. Patient will increase active ROM of R hip to 90 deg flex, 45 deg abd to allow pt to to improve performance of ADLs. Patient will demonstrate increase in R LE strength to 4+ to 5/5 during manual muscle testing in order to improve function for home management tasks and prior functional tasks. Perform walking in the community;physical activities;sleeping; without pain. Patient will Improve Timed Up and Go to <12 seconds to demonstrate decreased risk of falling. Patient will improve 5 time sit to stand to demonstrate improvement in functional lower extremity strength. Normal gait. Reciprocal stair negotiation. Patient Goals: To walk normal again and do everything I need to do. Planned Interventions, Frequency, and Duration: Current Frequency: 1x/week Duration: 8 weeks Total Number of Visits Planned: 8 Planned Treatment Interventions: Therapeutic exercise (16568), Neuromuscular re-education (00154), Manual therapy (10937), Gait Training (71541), Patient/Family/Caregiver Education PLAN FOR NEXT VISIT: Assess response to HEP. May assess hip abduction to 45deg. may progress exercises in standing or sitting postions to tolerance. May continue gait instruct with cane. Patient demonstrates good understanding of plan of care and treatment. The above goals and plan of care were discussed and agreed upon by patient/family. SUBJECTIVE: Yo Magana is a 66 year old female seen today for Pt reports history of low back pain and hip pain. She underwent R EMMY on 06/06/22. She currently is walking with a front wheeled walker independently at home. She notes she used a cane today as she wasn't sure how she would manage getting a walker in and out of the vehicle with her. She is currently sleeping in a recliner chair as she has pain when lying flat. Patient Goals: To walk normal again and do everything I need to do. Functional Limitations: walking in the community, physical activities, sleeping Prior Level of Function: Independent with restrictions Relevant History Past Relevant Surgical Conditions: Comments Relevant Surgical Conditions Comments: Pt describes previous low back surgery and hernia repair. Employment: Homemaker Home Environment Patient Lives With: Family Home Type: (Steps to enter home with railing. Pt reports she is able to negotiate using cane and railing. Has been using walker in home.) Intake Information: Prescription present Previous Treatment: Physical Therapy (instructe din exercises prior to leaving the hospital) Pain: Pain Pain Level: 3 Pain Location: Hip - Right Description: Sore Post Treatment Pain Post Treatment Pain Level: No Change PROMIS Scales T-scores: mean of general population = 50. 5 points is clinically meaningfully difference Percentiles provide an indication of how the patient's score ranks in relation to the general population. Higher percentile rankings indicate better function/quality of life. 50th percentile is the average of the general population and indicates half of respondents had a worse score. T-scores: mean of general population = 50. 5 points is clinically meaningfully difference Percentiles provide an indication of how the patient's score ranks in relation to the general population. Higher percentile rankings indicate better function/quality of life. 50th percentile is the average of the general population and indicates half of respondents had a worse score. OBJECTIVE MEASURES WITH LEVEL OF FUNCTION: LE AROM R Knee Extension: 0 Degrees R Ankle Dorsiflexion: 8 Degrees R Ankle Plantar Flexion: 45 Degrees L Hip Flexion: 110 Degrees L Ankle Dorsiflexion: 8 Degrees L Ankle Plantar Flexion: 45 Degrees LE PROM R Hip Flexion: (to 90 deg) LE Strength Trunk Strength: 4- R LE Strength: 4 L LE Strength: 5 Functional Strength Functional Strength: Supine<>sit, Sit<>stand Supine<>sit: Independent Sit/Stand: Independent to cane or walker with reports of some stiffness/soreness. Gait Gait: Independent Gait Device: Cane, Wheeled Walker Gait Deviations: Right Lower Extremity Gait Deviations Right Lower Extremity: Lacks full knee extension during terminal swing, Lacks hip extension beyond mid-stance Gait Observation: Ambulation with front wheeled walker demonstrated decreased deviations and increased uday. Stairs: Not observed in the clinic today, but pt reports independence with railing and cane using step-to pattern. Education: Education Learning Preferences: Demonstration, Explanation Barriers: None Learning/educational needs: Home exercise program, Plan of Care Education Provided: Yes, see treatment interventions for education provided Education Provided To: Patient Education Mode/Type: Demonstration, Explanation/Discussion, Literature/Printed Materials, Performance Response to Education/Teach Back: States/Identifies, Return Demonstration TREATMENT: PT Treatment Interventions: Therapeutic Exercise Evaluation Therapeutic Exercise: 1: *ankle pumps x 20 2: *quad sets 5 sec x 10 3: *gluteal sets 5 sec holds x 10 4: *heel slides (slide boot) 2 x 10 5: *seated LAQ x 10 Skilled Intervention: Patient was educated in proper exercise technique and purpose for exercises. Reviewed previously instructed exercises and educated patient on additions/changes for home exercise program as above (*). Skilled judgment was provided in selection of appropriate interventions. Provided written instruction for home exercise program to facilitate proper performance and compliance. Correct performance of therapeutic exercises was facilitated with verbal and visual cuing. Patient education as noted. Billing * Evaluation Low Complexity: 1 Unit Therapeutic Exercise Treatment Minutes: 22 Total Treatment Time Minutes (timed/untimed): 45 Shelley Cruz PT documented in this encounter [facility] Evaluation note Diagnosis Osteoarthritis of right hip, unspecified osteoarthritis type- Primary [facility] Diagnosis Osteoarthritis of right hip, unspecified osteoarthritis type- Primary [facility] Diagnosis Osteoarthritis of right hip, unspecified osteoarthritis type- Primary [facility] noteNo assessment information availableIndian [facility] Phone[facility]* Query Response Comment Date/Time Was patient education provided Yes 06/07/2022 10:20 Additional Discharge Instructions See Dr Bianchi's Hip Form Weight Bearing as Tolerated Instruction/Education Provided DI for Hi p Replacement [facility] Instructions* Name Dates Details Patient Instructions Indication:Non-smoker Start:30-Oct-2020 Instruction Type:Provider Instructions for Treatment How to Access Health Informa tion Online using Patient Portal and [employer]rd [employer] Apps Indication:Non-smoker Start:30-Oct-2020 Instruction Type:Patient Education Patient Instructions Indication:Non-smoker Start:24-Jul-2020 Instruction Type:Provider Instructions for Treatment How to Access Health Informa tion Online using Patient Portal and [employer] Apps Indication:Non-smoker Start:24-Jul-2020 Instruction Type:Patient Education Patient Instructions Indication:Non-smoker Start:10-Jul-2020 Instruction Type:Provider Instructions for Treatment How to Access Health Informa tion Online using Patient Portal and [employer] Apps Indication:Non-smoker Start:10-Jul-2020 Instruction Type:Patient Education How to access health informa tion online Indication:Non-smoker Start:01-Jul-2018 Instruction Type:Patient Education How to access health informa tion online - Detail Indication:Non-smoker Start:01-Jul-2018 Instruction Type:Patient Education Patient Instructions Indication:Non-smoker Start:01-Jul-2018 Instruction Type:Provider Instructions for Treatment How to access health informa tion online Indication:Low back pain potentially associated with radiculopathy Start:22-Dec-2017 Instruction Type:Patient Education How to access health informa tion online - Detail Indication:Low back pain potentially associated with radiculopathy Start:22-Dec-2017 Instruction Type:Patient Education Patient Instructions Indication:Low back pain potentially associated with radiculopathy Start:22-Dec-2017 Instruction Type:Provider Instructions for Treatment How to access health informa tion online Indication:Non-smoker Start:03-Oct-2017 Instruction Type:Patient Education How to access health informa tion online - Detail Indication:Non-smoker Start:03-Oct-2017 Instruction Type:Patient Education Patient Instructions Indication:Non-smoker Start:03-Oct-2017 Instruction Type:Provider Instructions for Treatment How to access health informa tion online Indication:Occult blood in stools Start:28-Aug-2015 Instruction Type:Patient Education How to access health informa tion online - Detail Indication:Occult blood in stools Start:28-Aug-2015 Instruction Type:Patient Education Patient Instructions Indication:Occult blood in stools Start:28-Aug-2015 Instruction Type:Provider Instructions for Treatment Patient Instructions Indication:Dysuria Start:07-Dec-2014 Instruction Type:Provider Instructions for Treatment Patient Instructions Indication:Abnormal CT of the abdomen Start:21-Jan-2014 Instruction Type:Provider Instructions for Treatment [facility] Work Phone: Instructions* Name Dates Details Patient Instructions Indication:Non-smoker Start:30-Oct-2020 Instruction Type:Provider Instructions for Treatment How to Access Health Informa tion Online using Patient Portal and [employer]rd [employer] Apps Indication:Non-smoker Start:30-Oct-2020 Instruction Type:Patient Education Patient Instructions Indication:Non-smoker Start:24-Jul-2020 Instruction Type:Provider Instructions for Treatment How to Access Health Informa tion Online using Patient Portal and [employer]rd [employer] Apps Indication:Non-smoker Start:24-Jul-2020 Instruction Type:Patient Education Patient Instructions Indication:Non-smoker Start:10-Jul-2020 Instruction Type:Provider Instructions for Treatment How to Access Health Informa tion Online using Patient Portal and [employer]rd [employer] Apps Indication:Non-smoker Start:10-Jul-2020 Instruction Type:Patient Education How to access health informa tion online Indication:Non-smoker Start:01-Jul-2018 Instruction Type:Patient Education How to access health informa tion online - Detail Indication:Non-smoker Start:01-Jul-2018 Instruction Type:Patient Education Patient Instructions Indication:Non-smoker Start:01-Jul-2018 Instruction Type:Provider Instructions for Treatment How to access health informa tion online Indication:Low back pain potentially associated with radiculopathy Start:22-Dec-2017 Instruction Type:Patient Education How to access health informa tion online - Detail Indication:Low back pain potentially associated with radiculopathy Start:22-Dec-2017 Instruction Type:Patient Education Patient Instructions Indication:Low back pain potentially associated with radiculopathy Start:22-Dec-2017 Instruction Type:Provider Instructions for Treatment How to access health informa tion online Indication:Non-smoker Start:03-Oct-2017 Instruction Type:Patient Education How to access health informa tion online - Detail Indication:Non-smoker Start:03-Oct-2017 Instruction Type:Patient Education Patient Instructions Indication:Non-smoker Start:03-Oct-2017 Instruction Type:Provider Instructions for Treatment How to access health informa tion online Indication:Occult blood in stools Start:28-Aug-2015 Instruction Type:Patient Education How to access health informa tion online - Detail Indication:Occult blood in stools Start:28-Aug-2015 Instruction Type:Patient Education Patient Instructions Indication:Occult blood in stools Start:28-Aug-2015 Instruction Type:Provider Instructions for Treatment Patient Instructions Indication:Dysuria Start:07-Dec-2014 Instruction Type:Provider Instructions for Treatment Patient Instructions Indication:Abnormal CT of the abdomen Start:21-Jan-2014 Instruction Type:Provider Instructions for Treatment [facility] Work Phone: Instructions* Name Dates Details Patient Instructions Indication:Non-smoker Start:30-Oct-2020 Instruction Type:Provider Instructions for Treatment How to Access Health Informa tion Online using Patient Portal and [employer]rd [employer] Apps Indication:Non-smoker Start:30-Oct-2020 Instruction Type:Patient Education Patient Instructions Indication:Non-smoker Start:24-Jul-2020 Instruction Type:Provider Instructions for Treatment How to Access Health Informa tion Online using Patient Portal and [employer] Apps Indication:Non-smoker Start:24-Jul-2020 Instruction Type:Patient Education Patient Instructions Indication:Non-smoker Start:10-Jul-2020 Instruction Type:Provider Instructions for Treatment How to Access Health Informa tion Online using Patient Portal and [employer]rd [employer] Apps Indication:Non-smoker Start:10-Jul-2020 Instruction Type:Patient Education How to access health informa tion online Indication:Non-smoker Start:01-Jul-2018 Instruction Type:Patient Education How to access health informa tion online - Detail Indication:Non-smoker Start:01-Jul-2018 Instruction Type:Patient Education Patient Instructions Indication:Non-smoker Start:01-Jul-2018 Instruction Type:Provider Instructions for Treatment How to access health informa tion online Indication:Low back pain potentially associated with radiculopathy Start:22-Dec-2017 Instruction Type:Patient Education How to access health informa tion online - Detail Indication:Low back pain potentially associated with radiculopathy Start:22-Dec-2017 Instruction Type:Patient Education Patient Instructions Indication:Low back pain potentially associated with radiculopathy Start:22-Dec-2017 Instruction Type:Provider Instructions for Treatment How to access health informa tion online Indication:Non-smoker Start:03-Oct-2017 Instruction Type:Patient Education How to access health informa tion online - Detail Indication:Non-smoker Start:03-Oct-2017 Instruction Type:Patient Education Patient Instructions Indication:Non-smoker Start:03-Oct-2017 Instruction Type:Provider Instructions for Treatment How to access health informa tion online Indication:Occult blood in stools Start:28-Aug-2015 Instruction Type:Patient Education How to access health informa tion online - Detail Indication:Occult blood in stools Start:28-Aug-2015 Instruction Type:Patient Education Patient Instructions Indication:Occult blood in stools Start:28-Aug-2015 Instruction Type:Provider Instructions for Treatment Patient Instructions Indication:Dysuria Start:07-Dec-2014 Instruction Type:Provider Instructions for Treatment Patient Instructions Indication:Abnormal CT of the abdomen Start:21-Jan-2014 Instruction Type:Provider Instructions for Treatment [facility] Work Phone: reason for referral (narrative)No reason for referral information availableIndian [facility] Work Phone: Instructions Name Dates Details Non-smoker : How to access h ealth information online Indication:Non-smoker Non-smoker : How to access h ealth information online - Detail Indication:Non-smoker Non-smoker : Patient Instruc tions Indication:Non-smoker Low back pain potentially as sociated with radiculopathy : How to access health information online Indication:Low back pain potentially associated with radiculopathy Low back pain potentially as sociated with radiculopathy : How to access health information online - Detail Indication:Low back pain potentially associated with radiculopathy Low back pain potentially as sociated with radiculopathy : Patient Instructions Indication:Low back pain potentially associated with radiculopathy Occult blood in stools : How to access health information online Indication:Occult blood in stools Occult blood in stools : How to access health information online - Detail Indication:Occult blood in stools Occult blood in stools : Pat ient Instructions Indication:Occult blood in stools Dysuria : Patient Instructio ns Indication:Dysuria Abnormal CT of the abdomen : Patient Instructions Indication:Abnormal CT of the abdomen Name Dates Details Non-smoker : How to access h ealth information online Indication:Non-smoker Non-smoker : How to access h ealth information online - Detail Indication:Non-smoker Non-smoker : Patient Instruc tions Indication:Non-smoker Low back pain potentially as sociated with radiculopathy : How to access health information online Indication:Low back pain potentially associated with radiculopathy Low back pain potentially as sociated with radiculopathy : How to access health information online - Detail Indication:Low back pain potentially associated with radiculopathy Low back pain potentially as sociated with radiculopathy : Patient Instructions Indication:Low back pain potentially associated with radiculopathy Occult blood in stools : How to access health information online Indication:Occult blood in stools Occult blood in stools : How to access health information online - Detail Indication:Occult blood in stools Occult blood in stools : Pat ient Instructions Indication:Occult blood in stools Dysuria : Patient Instructio ns Indication:Dysuria Abnormal CT of the abdomen : Patient Instructions Indication:Abnormal CT of the abdomen Name Dates Details Patient Instructions Indication:Non-smoker Start:10-Jul-2020 Instruction Type:Provider Instructions for Treatment How to Access Health Informa tion Online using Patient Portal and [employer] Apps Indication:Non-smoker Start:10-Jul-2020 Instruction Type:Patient Education How to access health informa tion online Indication:Non-smoker Start:01-Jul-2018 Instruction Type:Patient Education How to access health informa tion online - Detail Indication:Non-smoker Start:01-Jul-2018 Instruction Type:Patient Education Patient Instructions Indication:Non-smoker Start:01-Jul-2018 Instruction Type:Provider Instructions for Treatment How to access health informa tion online Indication:Low back pain potentially associated with radiculopathy Start:22-Dec-2017 Instruction Type:Patient Education How to access health informa tion online - Detail Indication:Low back pain potentially associated with radiculopathy Start:22-Dec-2017 Instruction Type:Patient Education Patient Instructions Indication:Low back pain potentially associated with radiculopathy Start:22-Dec-2017 Instruction Type:Provider Instructions for Treatment How to access health informa tion online Indication:Non-smoker Start:03-Oct-2017 Instruction Type:Patient Education How to access health informa tion online - Detail Indication:Non-smoker Start:03-Oct-2017 Instruction Type:Patient Education Patient Instructions Indication:Non-smoker Start:03-Oct-2017 Instruction Type:Provider Instructions for Treatment How to access health informa tion online Indication:Occult blood in stools Start:28-Aug-2015 Instruction Type:Patient Education How to access health informa tion online - Detail Indication:Occult blood in stools Start:28-Aug-2015 Instruction Type:Patient Education Patient Instructions Indication:Occult blood in stools Start:28-Aug-2015 Instruction Type:Provider Instructions for Treatment Patient Instructions Indication:Dysuria Start:07-Dec-2014 Instruction Type:Provider Instructions for Treatment Patient Instructions Indication:Abnormal CT of the abdomen Start:21-Jan-2014 Instruction Type:Provider Instructions for Treatment Advance Directives No Advanced Directives Records Found Advance Directive Response Recorded Date/ Time Advance Directives No June 06 023 6:47am Durable Power Of Environmental Project Manager No 2022 6:47am Living Will No June 06, 2022 6:47am Chief Complaint and Reason for Visit Encounter Admit Date Chief Complaint Reason for V isit Discharged Inpatient June 06, 2022 3:43am OSTEOARTH RITIS OF HIP Chief Complaint Admit Date LEFT HIP December 27, 2024 8: 26am December 27, 2024 8: 48am Summary Purpose Family History No Family History Records FoundNo Family History Records FoundNo Family History Records Found Reason for Referral Specialty Diagnoses / Procedures Referred By Contac t Referred To Contact [facility] Diagnoses Osteoarthritis of right hip, unspecified osteoarthritis type Procedures PT REHAB FOLLOW UP ORDER THERAPEUTIC EXERCISES RE, EA 15 MIN. Shelley Cruz, PT [facility] [place] [address] [place] [address] Referral ID Status Reason Start Date Expiration Date Visits Requested Visits Authorized [id number] Pending Review PCP Requested Referral Auto-Generate d Referral 06/28/2022 09/26/2022 1 1 Additional Source Comments INFORMATION SOURCE (unrecogn ized section and content) DATE CREATED AUTHOR 06/13/2022 [facility] DATE CREATED AUTHOR AUTHOR'S ORGANIZ ATION 10/12/2022 [facility] DATE CREATED AUTHOR AUTHOR'S ORGANIZ ATION 01/06/2025 [facility] Source Comments (unrecognize d section and content) In the event this informatio n is protected by the Federal Confidentiality of Alcohol and Drug Abuse Patient Records regulations: The Federal rules restrict any use of the information to criminally investigate or prosecute any alcohol or drug abuse patient.[facility] the event this information is protected by the Federal Confidentiality of Alcohol and Drug Abuse Patient Records regulations: The Federal rules restrict any use of the information to criminally investigate or prosecute any alcohol or drug abuse patient.[facility] the event this information is protected by the Federal Confidentiality of Alcohol and Drug Abuse Patient Records regulations: The Federal rules restrict any use of the information to criminally investigate or prosecute any alcohol or drug abuse patient.[facility] Reason for Visit (unrecogniz ed section and content) Reason Comments PT Eval Specialty Diagnoses / Procedures Referred By Contac t Referred To Contact [facility] Department Diagnoses rsq Procedures REFERRAL TO [facility] FINANCIAL COUNSELOR Self [facility] Dept Referral ID Status Reason Start Date Expiration Date Visits Requested Visits Authorized [id number] Authorized Patient Cleared - Qualified 100% FAS 06/25/2022 09/23/2022 99 99 Reason Comments Physical Therapy Specialty Diagnoses / Procedures Referred By Contac t Referred To Contact [facility] Department Diagnoses rsq Procedures REFERRAL TO [facility] FINANCIAL COUNSELOR [facility] Dept Care Teams (unrecognized sec tion and content) Team Status: Active Member Role/Relationship Status Dates No Primary Care Physician Family Provider Active Dr. Breezy Mello MD Primary Care Provider Active Team Status: Inactive Member Role/Relationship Status Dates Dr. Breezy Mello MD Primary Care Provider Active Start: December 27, 2024 End: December 27, 2024 Dr. Breezy Mello MD Referring Provider Active St art: December 27, 2024 End: December 27, 2024 Dr. Woody Guerrier DO Attending Provider Active Start: December 27, 2024 End: December 27, 2024 Team Status: Inactive Member Role/Relationship Status Dates Dr. Breezy Mello MD Primary Care Provider Active Start: December 27, 2024 End: December 27, 2024 Dr. Thang Yuen MD Attending Provider Active S tart: December 27, 2024 End: December 27, 2024 Goals (unrecognized section and content) Goals may be documented in a n alternate sectionGoals may be documented in an alternate section FOR RECORDS PERTAINING TO PATIENTS WHO ARE OR HAVE BEEN ENROLLED IN A CHEMICAL DEPENDENCY/SUBSTANCEABUSE PROGRAM, SOME INFORMATION MAY BE OMITTED. This clinical summary was aggregated from multiple sources. Caution should be exercised in using it in the provision of clinical care. This summary normalizes information from multiple sources, and as a consequence, information in this document may materially change the coding, format and clinical context of patient data. In addition, data may be omitted in some cases. CLINICAL DECISIONS SHOULD BE BASED ON THE PRIMARY CLINICAL RECORDS. [employer] provides no warranty or guarantee of the accuracy or completeness of information in this document.
--- NOTE | 2025-01-08 07:57 | CT_ITS ---
PROCEDURE: EXTREMITY LOWER WITHOUT CONTRA 01/08/2025 REASON FOR EXAM: TEMPLATING FOR LEFT EMMY TECHNIQUE: Procedure Code: CTELWO Modality: CT Procedure: EXTREMITY LOWER WITHOUT CONTRA Coronal and Sagittal reconstruction series were provided. One or more dose reduction techniques were used (e.g., Automated exposure control, adjustment of the mA and/or kV according to patient size, use of iterative reconstruction technique. RADIATION DOSE SUMMARY: CTDlvol: 25 mGy DLP: 637.09 mGycm COMPARISON: Radiographs of the hip dated December 27, 2024 FINDINGS: Patient is status post a right hip arthroplasty which appears to be in good anatomic alignment. There is no loosening. Severe osteoarthropathy of the left hip is present with loss of joint space, large marginal osteophytes and cystic changes in the superior roof of the acetabulum and femoral head. No fracture noted. No destructive process seen. No distinct calcified loose body present. The remainder of the pelvic structures revealed diffuse osteopenia bone. SI joints appear symmetrical. There is no sacral insufficiency fracture present. Large amount of stool is seen in the colon. The patient is status post anterior abdominal wall hernia repair. Surgical clips are noted within both fallopian tubes. No free fluid or lymphadenopathy is present in the pelvis. Degenerative changes of the lumbar spine noted. Dedicated imaging through the knees is performed. There is no acute fracture or dislocation. Advanced degenerative changes are present within the patellofemoral and medial compartments of both knees. Lateral patellar tilt is noted bilaterally with otherwise normal patellar tracking. Right effusion more so than left. No calcified loose body. No soft tissue abnormality. CT/Extremity Lower without Contra IMPRESSION: Severe osteoarthropathy of the left hip degenerative. Status post right hip arthroplasty. Good alignment. Moderate degenerative changes of both knees primarily affecting the medial and patellofemoral compartments bilaterally. Degenerative changes of the lower lumbar spine. No acute fracture. Reading Location: [id number]
== END | disposition home or self-care (01) ==
PROVIDERS: PCP Family Medicine; Referring Provider Orthopaedic Surgery; Visit Provider Orthopaedic Surgery
DX: M16.12 Unilateral primary osteoarthritis, left hip (principal)
CPT/HCPCS: 73700

== ENCOUNTER 2025-02-15 05:19 | Day surgery (SDC) | payer SELFPAY, OTHER ==
--- NOTE | 2025-02-08 08:46 | EKG12_ITS ---
Test Reason : PREOP Blood Pressure : */* mmHG Vent. Rate : 67 BPM Atrial Rate : 67 BPM P-R Int : 156 ms QRS Dur : 88 ms QT Int : 426 ms P-R-T Axes : 69 91 56 degrees QTcB Int : 450 ms Normal sinus rhythm with sinus arrhythmia Rightward axis Borderline ECG Confirmed by MARILYN GLORIA, BAKARI ([id number]), editor trade journal CLAUDETTE PERRIN ([id number]) on 02/08/2025 1:47:07 PM Referred By: Woody Guerrier Confirmed By: BAKARI SANDERS MD
[2025-02-08 08:54] LABS: Hematocrit 38.0 % (37-47); Hemoglobin 13.0 g/dL (12.0-15.0); Immature Granulocytes Count 0.020 X10^3/uL (0.0-0.0); Mean Corp Hgb Conc 34.2 g/dL (32-36); Mean Corpuscular Volume 92.0 fL (81-99); Mean Platelet Vol. 8.5 fl (6.2-12.0); NRBC Flagged by Analyzer 0 % (0-5); Platelet Count 248 K/mm3 (150-450); RBC Distribution Width CV 13.8 % (11.6-14.6); RBC Distribution Width SD 47.2 fl (35.1-43.9); Red Blood Count 4.13 M/mm3 (4.2-5.4); White Blood Count 6.7 K/mm3 (4.4-11.0)
[2025-02-08 09:23] LABS: Anion Gap 12 (5-15); BUN 12 mg/dL (4-19); BUN/Creat Ratio 15.8 RATIO (10-20); Calcium,Total 10.0 mg/dL (7.6-11.0); Carbon Dioxide 24.3 mmol/L (21.0-32.0); Chloride 105 mmol/L (98-108); Glucose 98 mg/dL (70-99); Potassium 4.3 mmol/L (3.3-5.1)
[2025-02-08 09:26] LABS: Prothrombin Time (Protime)PT. 13.4 SECONDS (11.7-14.9)
[2025-02-08 09:27] LABS: Partial Thromboplast Time 27.1 Seconds (24.1-36.2)
[2025-02-08 09:43] LABS: Magnesium 2.2 mg/dL (1.5-2.2)
--- NOTE | 2025-02-09 15:16 | PAT.ANE_ITS ---
Pre-Assessment Diagnosis/Proposed Procedure Planned Operative Procedure(s): (L) Left Total Hip Replacement Robotic Arm Assisted Anesthesia History Anesthesia History - licensed club manager: Anesthesia History - licensed club manager Hx Hospitalization No 02/02/25 14:00 Any Problems With Anesthesia Yes: SLOW TO WAKE UP 02/02/25 14:00 Cholinesterase deficiency No 02/02/25 14:00 You/Your Family Experience No 02/02/25 14:00 fever (hyperthermia) with Relationship Recent Exposure to Contagious Disease Does patient have nerve No 02/02/25 14:00 stimulator Patient instructed to have device shut off --Does patient have Pacemaker or ICD? When Was Last Pacemaker Check QUESTION #4 FULL TEXT: You/Your Family Experience fever (hyperthermia) with Anesthesia Last Oral Intake Last Oral intake: Last Oral Intake NPO since Meds taken in AM with sips of water? Meds patient instructed to take am of surgery PONV PONV - licensed club manager: PONV - licensed club manager Female Yes 02/02/25 14:00 HX of Motion Sickness No 02/02/25 14:00 HX of N/V After Surgery No 02/02/25 14:00 Non-Smoker Yes 02/02/25 14:00 Duration of Surgery greater Yes 02/02/25 14:00 than 60 minutes Number of Risk Factors 3 02/02/25 14:00 PONV Score Moderate Risk 02/02/25 14:00 Height & Weight Height & Weight: Anesthesia: Height & Weight Height 5 ft 6 in 12/27/24 08:38 Respiratory Assessment Respiratory Assessment - licensed club manager: Respiratory Tract Infection Hx - licensed club manager Hx Respiratory Tract Infection No 02/02/25 14:00 STOP Sleep Apnea STOP Sleep Apnea - licensed club manager: STOP Sleep Apnea - licensed club manager Hx Hypertension No 02/02/25 14:00 Hx Sleep Apnea No 02/02/25 14:00 CPAP BIPAP Do you snore loudly (louder No 02/02/25 14:00 than talking or can be heard Do you often feel tired/ No 02/02/25 14:00 fatigued/ sleepy during daytime? Has anyone observed you stop No 02/02/25 14:00 breathing during sleep? STOP Results Negative 02/02/25 14:00 QUESTION #5 FULL TEXT : Do you snore loudly (louder than talking or can be heard through closed doors)? Tobacco Use History Tobacco Use History - licensed club manager: Tobacco Use History - licensed club manager Tobacco Use Smoking Status Never smoker 02/02/25 14:00 Hx Tobacco Use No 02/02/25 14:00 Years Smoking Packs Smoked per Day Smoking Cessation Date was within the last 15 years Hx Smoking Cessation Date Hx Smoking Cessation Counseling Hematologic Medial History Hematologic Hx - licensed club manager: Hematologic Medical Hx - clinical documentation consultant Hx of Blood Transfusion No 02/02/25 14:00 Hx of Transfusion in last 3 No 02/02/25 14:00 Months Date of Last Transfusion (if within last 3 months) Ever experience any problems No 02/02/25 14:00 with transfusion(s)? Specify any problems Hx of Preganancy in last 3 N/A 02/02/25 14:00 Months Nurse Filling Out Transfusion NBUCHER 02/02/25 14:00 & Questions: Date: 02/02/25 02/02/25 14:00 Time: 14:07 02/02/25 14:00 Patient unable to answer at this time (ie. confused, unrespo /Reproduction History /Reproductive History - licensed club manager: /Reproductive Hx- licensed club manager Hx Now No 02/02/25 14:00 Gestational Age (in weeks): EDC: Hx Hx Para Hx Section SAB No 02/02/25 14:00 COUNT INCLUDES THE [facility] Medical History (Updated 02/02/25 @ 14:12 by Leti Santoro) Wears glasses Wears dentures Post-menopausal Ambulates with cane Arthritis Non-smoker Leg cramps Home Medications Medication Instructions Recorded Last Taken Type garlic 1,000 mg capsule 1,000 mg PO DAILY 02/02/25 U nknown History omega 7-ivq-iid-fish oil 1,200 mg 1 cap PO DAILY 02/02 Unknown History (144 mg-216 mg) capsule (Fish Oil) Allergy/AdvReac Type Severity Reaction Status Date / Time No Known Allergies Allergy Verified 02/02/25 13:57 Surgical History History of back surgery History of hernia surgery History of right hip replacement Social History (Updated 12/27/24 @ 08:41 by Nuzhat Lowery) Smoking Status: Never smoker alcohol intake: never Audit: Pertinent Findings Pertinent Findings EKG Perinent findings: EKG 02/08/2025. Normal sinus rhythm with sinus arrhythmia. Rightward axis. Recommendation Anesthesia Recommendation Anesthesia recommendation: OPTIMIZED for anesthesia
[2025-02-15] VITALS (16 sets, daily range): BP systolic 113–153; BP diastolic 51–79; PULSE 42–60; RESP 14–18; TEMP 35.9–36.6; O2SAT 97–100; BMI 24.2
[2025-02-15] MEDS: Magnesium 1 GM over 15 mins IV (06:25)
--- NOTE | 2025-02-15 06:35 | PRE.ANES_ITS ---
ASA Classification* ASA Classification ASA Classification: 2 Assessment & Plan Anesthesia* Anesthesia Assessment Anesthesia Assessment: Discussed sedation and/or anesthesia options, risks, benefits, and alternatives with patient/parents/legal guardian/POA. Questions invited. The patient/parents/legal guardian/POA seems to understand and agrees to proceed with anesthesia plan. Reviewed the physical assessment, medical history, allergy history and patient home medications list prior to surgery/procedure/anesthetic and documented any changes. Performed airway and anesthesia risk assessments. Anesthesia Type Anesthesia Type: General (Patient refuses spinal.) History Source History Obtained from:: Patient and Chart Anesthesia Focused Assessment* Temperature: 97.9 F Pulse Rate: 60 Blood Pressure: 133/73 Respiratory Rate: 16 Pulse Ox: 97 Oxygen Delivery Method: Room Air Airway Assessment Mouth opens: >3 cm Mallampati Score: IV Teeth Condition: Dentures (Patient has full upper and lower dentures. They will come out.) Neck Range of motion (ROM): Limited ROM (Slight Decrease) Labs Anesthesia Preop lab: CBC WBC, (4.4-11.0) 6.7 K/mm3 02/08/25, 08:35 RBC, (4.2-5.4) 4.13 M/mm3 L 02/08/25, 08:35 Hgb, (12.0-15.0) 13.0 g/dL 02/08/25, 08:35 Hct, (37-47) 38.0 % 02/08/25, 08:35 Plt Count, (150-450) 248 K/mm3 02/08/25, 08:35 CHEMISTRY Potassium, (3.3-5.1) 4.3 mmol/L 02/08/25, 08:35 Sodium, (133-145) 141 mmol/L 02/08/25, 08:35 Magnesium, (1.5-2.2) 2.2 mg/dL 02/08/25, 08:35 BUN, (4-19) 12 mg/dL 02/08/25, 08:35 Creatinine, (0.70-1.20) 0.73 mg/dL 02/08/25, 08:35 Glucose, (70-99) 98 mg/dL 02/08/25, 08:35 COAG PT, (11.7-14.9) 13.4 SECONDS 02/08/25, 08:35 Pre-Assessment Diagnosis/Proposed Procedure Planned Operative Procedure(s): (L) Left Total Hip Replacement Robotic Arm Assisted Anesthesia History Anesthesia History - assistant property manager: Anesthesia History - assistant property manager Hx Hospitalization No 02/02/25 14:00 Any Problems With Anesthesia Yes: SLOW TO WAKE UP 02/02/25 14:00 Cholinesterase deficiency No 02/02/25 14:00 You/Your Family Experience No 02/02/25 14:00 fever (hyperthermia) with Relationship Recent Exposure to Contagious Disease Does patient have nerve No 02/02/25 14:00 stimulator Patient instructed to have device shut off --Does patient have Pacemaker or ICD? When Was Last Pacemaker Check QUESTION #4 FULL TEXT: You/Your Family Experience fever (hyperthermia) with Anesthesia Last Oral Intake Last Oral intake: Last Oral Intake NPO since Meds taken in AM with sips of water? Meds patient instructed to take am of surgery Any additional information?: Yes NPO since: 04:30 (Patient had coffee at 4:30 AM.) Meds taken in AM with sips of water?: No PONV PONV - assistant property manager: PONV - assistant property manager Female Yes 02/02/25 14:00 HX of Motion Sickness No 02/02/25 14:00 HX of N/V After Surgery No 02/02/25 14:00 Non-Smoker Yes 02/02/25 14:00 Duration of Surgery greater Yes 02/02/25 14:00 than 60 minutes Number of Risk Factors 3 02/02/25 14:00 PONV Score Moderate Risk 02/02/25 14:00 Height & Weight Height & Weight: Anesthesia: Height & Weight Height 5 ft 6 in 12/27/24 08:38 Respiratory Assessment Respiratory Assessment - assistant property manager: Respiratory Tract Infection Hx - assistant property manager Hx Respiratory Tract Infection No 02/02/25 14:00 STOP Sleep Apnea STOP Sleep Apnea - assistant property manager: STOP Sleep Apnea - assistant property manager Hx Hypertension No 02/02/25 14:00 Hx Sleep Apnea No 02/02/25 14:00 CPAP BIPAP Do you snore loudly (louder No 02/02/25 14:00 than talking or can be heard Do you often feel tired/ No 02/02/25 14:00 fatigued/ sleepy during daytime? Has anyone observed you stop No 02/02/25 14:00 breathing during sleep? STOP Results Negative 02/02/25 14:00 QUESTION #5 FULL TEXT : Do you snore loudly (louder than talking or can be heard through closed doors)? Tobacco Use History Tobacco Use History - assistant property manager: Tobacco Use History - assistant property manager Tobacco Use Smoking Status Never smoker 02/02/25 14:00 Hx Tobacco Use No 02/02/25 14:00 Years Smoking Packs Smoked per Day Smoking Cessation Date was within the last 15 years Hx Smoking Cessation Date Hx Smoking Cessation Counseling Hematologic Medial History Hematologic Hx - assistant property manager: Hematologic Medical Hx - spring clipper Hx of Blood Transfusion No 02/02/25 14:00 Hx of Transfusion in last 3 No 02/02/25 14:00 Months Date of Last Transfusion (if within last 3 months) Ever experience any problems No 02/02/25 14:00 with transfusion(s)? Specify any problems Hx of Preganancy in last 3 N/A 02/02/25 14:00 Months Nurse Filling Out Transfusion NBUCHER 02/02/25 14:00 & Questions: Date: 02/02/25 02/02/25 14:00 Time: 14:07 02/02/25 14:00 Patient unable to answer at this time (ie. confused, unrespo /Reproduction History /Reproductive History - assistant property manager: /Reproductive Hx- assistant property manager Hx Now No 02/02/25 14:00 Gestational Age (in weeks): EDC: Hx Hx Para Hx Section SAB No 02/02/25 14:00 Active Medications Active Medications: Current Medications Generic Name Dose Route Start Last Admin Trade Name Freq PRN Reason Stop Dose Admin Acetaminophen 1,000 mg 02/15/25 07:30 Acetaminophen 500 Mg Tablet PO 02/15/25 07:31 PREOP ONE Celecoxib 400 mg 02/15/25 07:30 Celecoxib 200 Mg Capsule PO 02/15/25 07:31 PREOP ONE Dexamethasone Sodium Phosphate 10 mg 02/15/25 07:30 Dexamethasone 10 Mg/Ml Vial IV 02/15/25 07:31 INTRAOP ONE Gabapentin 600 mg 02/15/25 07:30 Gabapentin 600 Mg Tablet PO 02/15/25 07:31 PREOP ONE Lactated Ringer's 1,000 mls @ 999 mls/hr 02/15/25 07:30 IV 02/15/25 08:30 .Q1H1M SCOTT Cefazolin Sodium 2 gm/ Sodium 110 mls @ 150 mls/hr 02/15/25 07:30 Chloride IV 02/15/25 08:13 INTRAOP ONE Tranexamic Acid 2,000 mg/ 120 mls @ 280 mls/hr 02/15/25 07:30 Sodium Chloride IV 02/15/25 07:55 INTRAOP ONE Lactated Ringer's 1,000 mls @ 125 mls/hr 02/15/25 07:30 IV 02/15/25 15:29 .Q8H SCOTT Magnesium Sulfate 1 gm/ 102 mls @ 408 mls/hr 02/15/25 07:30 Dextrose IV 02/15/25 07:44 PREOP ONE Insulin Human Lispro 1 - 6 unit 02/15/25 07:30 Insulin Lispro 100 Unit/Ml Insuln.Pen SC 02/15/25 18:00 Q4H PRN PRN BG>/= 180, SEE PROTOCOL Protocol Scopolamine HBr 1 patch 02/15/25 07:30 Scopolamine 1mg/72hr Patch TD 02/15/25 07:31 PREOP ONE PFSH Medical History Wears glasses Wears dentures Post-menopausal Ambulates with cane Arthritis Non-smoker Leg cramps Home Medications Medication Instructions Recorded Last Taken Type garlic 1,000 mg capsule 1,000 mg PO DAILY 02/02/25 U nknown History omega 1-gla-gkj-fish oil 1,200 mg 1 cap PO DAILY 02/02 Unknown History (144 mg-216 mg) capsule (Fish Oil) Allergy/AdvReac Type Severity Reaction Status Date / Time No Known Allergies Allergy Verified 02/15/25 06:33 Surgical History History of back surgery History of hernia surgery History of right hip replacement Social History Smoking Status: Never smoker alcohol intake: never Review of Systems (Anesthesia) ROS Narrative System reviewed and no additional complaints, except as documented.
[2025-02-15] MEDS: Scopolamine 1mg/72hr Patch 1 PATCH TD (06:48)
[2025-02-15] MEDS: LR 1,000 ML - BOLUS PREOP 999 ML IV (06:48)
--- NOTE | 2025-02-15 07:25 | PCM.HP.BLA ---
History and Physical Date of Admission: 02/15/25 [facility] [id number] [place] [address] OFFICE VISIT Date of Service: 12/27/24 MR#: [id number] Acct: [id number] Name: YO BENITEZ Rep #: [id number] : 1955 Provider: Dr. Woody Guerrier DO Age/Sex: 69/F [place] [facility] Status: Signed Intake Vital Signs 11/07/2117:18 12/28/2507:38 Height 5 ft 6 in 5 ft 6 in Weight: 150 lb 2 oz BMI 24.2 Intake Visit Reasons: RIGHT KNEE Chief Complaint: left hip pain Accompanied by: Allergies No Known Allergies Allergy (Verified 12/27/24 08:39) Have you fallen in the past year?: No [facility] Surgical History (Updated 12/27/24 @ 09:04 by Nuzhat Lowery) History of back surgery History of hernia surgery History of right hip replacement Social History (Updated 12/27/24 @ 08:41 by Nuzhat Lowery) Smoking Status: Never smoker alcohol intake: never HPI RIGHT KNEE Details: This documentation accurately reflects the service provided and the decisions made by me, Dr. Woody Guerrier DO 12/27/24 0734. Part of today’s visit was documented by Yusra ROSS, acting as scribe. YO BENITEZ is a 69 year old F new patient referral from [facility] left hip pain, she has been prescribed Celebrex 200 mg daily as well as baclofen here today for Patient is here today for left hip pain that she has been having for about 6 months. She denies any previous injury or surgery to the hip. Her pain starts over the lateral hip and radiates into her groin and her lower back. She has taken Tylenol for the pain. She does get pain that radiates down her leg and stops at the knee mostly medial. Denies numbness, tingling or other associated symptoms. She denies having recent imaging of the hip. She did have her right hip replaced in June 2022 at [facility] by Dr Pineda. Patient does ambulate with a cane due to the hip pain. Her pain is worse in the groin. She has seen a spine surgeon in the past regarding her lumbar spine in [place] where they did a procedure 6-7 years ago. Ortho Exam General General: Yes no acute distress and Yes well groomed Neurologic: Yes alert and Yes oriented x3 Psychologic: Yes reasonable and appropriate Left Hip Skin/Wound: No Ecchymosis, No soft tissue swelling and No Erythema Hip: Absent eccymosis, soft tissue swelling or erythema external rotation @90 degree extension: 22 degrees HIP: Severely limited hip range of motion with pain Internal rotation -15 degrees ER 15 pain on lateral side of lower leg Pain in her back with attempting to stand straight. No gross motor or sensory deficits Head: Normocephalic Atraumatic Chest: symmetrical rise, non-labored breathing, no audible wheeze Abdomen: no guarding, non-rigid Supplemental Info 12/27/2024 x-ray left hip: There is advanced hip arthrosis. She does have right total hip arthroplasty there is vascular clips in the pelvis there is also degenerative changes noted of her sacroiliac and lower lumbar spine. 10/13/2017 MRI lumbar spine: L3-L4 severe spinal canal stenosis correlate for descending L4 nerve root radiculopathy. L4-L5 moderate right and severe left lateral recess stenosis. Coding Level of Care Code Off vis,new,level 3 Diagnoses Primary osteoarthritis of left hip M16.12 Osteoarthritis type: primary Lumbar spondylosis M47.816 Assessment and Plan Assessment and Plan (1) Degenerative joint disease of left hip: Status: Acute Qualifiers: Osteoarthritis type: primary Qualified Code(s): M16.12 - Unilateral primary osteoarthritis, left hip (2) Lumbar spondylosis: Status: Acute Orders: Orders HIP, UNI W/ Pelvis 2-3 Views Today M25.552 - Pain in left hip Medications: Discontinued prednisone Discontinued Reason: Pt no longer taking 50 mg PO DAILY 5 tabs 0RF Plan Patient is here today for left hip pain. I did obtain and review xrays today of her hip as well as her lumbar spine MRI from 2018. I advised patient that she does have advanced arthritis of the left hip as well as her SI joints and low back. I do think the patient would benefit from having a left total hip replacement. I spoke with patient that her treatment options would be do nothing, physical therapy, NSAIDs, or a EMMY. Risks, benefits and alternatives of surgery reviewed including but not limited to bleeding, infection, nerve, foot drop, artery and/or tissue damage, fracture, VTE, leg length discrepancy, dislocation, need for hip precautions, continued pain and expected post-operative course. I spoke with patient that for the first 3 months after surgery she should not pick anything up from off the ground. Patient wishes to proceed with a left total hip replacement. We will need to get medical clearance from her PCP Dr. Breezy Mello. Patient wishes to not to have the spinal for anesthesia. Projected surgery date is February 15 2025 same-day surgery Will need CT scan for MAKOplasty Follow up at 2 weeks post-op or sooner if pain, swelling, numbness or associated symptoms, or concerns develop. All questions answered. Patient in agreement of plan. Clinical Quality Measures Falls Risk Screening/Assistive Devices Have you fallen in the past year?: No 12/27/24 0933 <Electronically signed by Woody Guerrier DO> Date Woody Guerrier DO I have examined the patient and the H&P has been reviewed. There are no clinical changes since date of exam.
--- NOTE | 2025-02-15 07:30 | FEM._PTH ---
PATIENT: YO BENITEZ [place] [facility] [id number] AGE/SX: 69/F ROOM: RE02/15/[address]: Dr. Woody Guerrier DO : 1955 BED: DIS: 02/15/2025 SPEC #: [id number] RECD: 02/15/25 10:26 STATUS: CHARLEEN REDawson #: [id number] JOSE RAFAEL: 02/15/25 07:[address]: Woody Guerrier DEPT: SURGICAL PATHOLOGY RECD BY: Matthew Cao ENTERED: 02/15/25 10:50 SP TYPE: FEM HEAD OTHR DR: Dr. Breezy Mello MD Tissues: A - Hip, NOS Procedures: Decalcification bone/plaque Surgery Specimen Level III HEADER OPERATION: ERAS, left total hip replacement arm assisted PRE-OP DIAGNOSIS: Degenerative joint disease of left hip TISSUE SUBMITTED: A- Left hip bone and tissue MICROSCOPIC DIAGNOSIS A. Left hip, left total hip replacement robotic arm assisted: * Benign cartilage and bone with degenerative changes MICROSCOPIC DESCRIPTION Slides are reviewed. GROSS DESCRIPTION A. Received in formalin labeled with the patient's name and date of . Designated as " L hip bone and soft tissue" is a saved 4.8 x 4.4 x 3.8 cm irregular femoral head with attached, femoral neck, 1.4 cm in length by 3.3 cm in diameter. There is an 8.0 x 7.8 x 1.4 cm aggregate of soft tissue and bone fragments within the container. The articular cartilage is de la o-pink to red and nodular with marked eburnation, diffuse peripheral osteophyte formation and attached soft tissue. Sectioning reveals pale de la o-yellow, trabeculated medullary bone with patchy areas of congestion throughout. There is a 0.5 x 0.4 cm possible subchondral cyst, underlying the area of eburnation. Bag Valver sections are submitted in 2 cassettes, following decalcification as follows: A1: Eburnation with apparent subchondral cystA2: Congested medullary bone and overlying osteophyte formation PR 02/15/2025 CPT:93544,37371
[2025-02-15] MEDS: Cefazolin 1 GM/5 ML Vial 2 GM IV (07:33)
[2025-02-15] MEDS: Lidocaine 1% (5 ml sdv) 5 ML Vial IV (07:40)
[2025-02-15] MEDS: TRANEXAMIC ACID 1,000 MG/10 ML ML 2000 MG IV (07:45)
[2025-02-15] MEDS: fentaNYL 100 MCG/2 ML Ampul IV (09:36)
--- NOTE | 2025-02-15 09:41 | PCM.OPRPT ---
Operative Report (Standard) Operative Information Date of Procedure: 02/15/25 Pre-Operative Diagnosis: Left hip DJD Post-Operative Diagnosis: Same Surgery/Procedure Performed: Left total hip arthroplasty grails web application developer: Yes Oven Roaster: Rolf Flynn Tasks completed by permit review assistant: Opening & closing, Implanting device and Retracting Type of Anesthesia: Spinal RN Documented Start/Stop Times: Operation Date: 02/15/25 07:30 Case Time Into Pre-Op 02/15/25 05:33 Out of Pre-Op 02/15/25 07:28 Anesthesia Start 02/15/25 07:33 Into Room 02/15/25 07:33 Procedure Start 02/15/25 07:58 Procedure Start Time: 07:58 Procedure Stop Time: 09:42 Select all DRAINS/GRAFTS/IMPLANTS that apply: None Estimated Blood Loss: 125 Specimen collected: No Description of surgery: Preoperative diagnosis: Left hip DJD Postoperative diagnosis: Same Procedure: CT-guided Makoplasty assisted left total hip arthroplasty Implants: Hema Accolade II stem size 4, 127 degree neck angle -5 head neck length 48 mm Trident II acetabular shell with 35 mm cancellous screw 36 mm ceramic head, Trident X3 polyethylene neutral insert. Anesthesia: Spinal EBL: [125 cc Complications: None Condition: Stable to PACU Forensic Manager Rolf Flynn. My physician orthodontic technician assistant was a vital part of this case. He was important in appropriate retraction during the case, and protection of soft tissues during procedure. His intimate knowledge of the case and my steps aided in safe and expedient completion of the procedure as well as appropriate position of the extremity during the case. He was also vital in assisting with closure under my direct supervision. Indication for procedure: This is a 69-year-old female who has had long-standing arthrosis of the hip who has failed conservative treatment and wished to undergo total hip arthroplasty. We did discuss operative versus nonoperative intervention including risks of bleeding, infection , nerve artery tissue damage, need for further surgery, fracture, leg length discrepancy dislocation blood clot and need for postoperative physical therapy and postoperative expectations. An informed consent was signed. Procedure: Patient was met in the preoperative holding area once again the operative extremity was identified by both patient and physician and was marked. Patient was met by anesthesia . Anesthesia was started. patient was then positioned in the lateral decubitus position on a well-padded pegboard with an axillary roll. All bony prominences were checked and padded. The patient was prepped and draped in the usual sterile fashion. A timeout was called to ensure the proper patient procedure and extremity were being contemplated. Anatomic landmarks were palpated and marked for a standard posterior lateral approach. Prior to this the ASIS was palpated and 3 fingerbreadths proximal to this 3 pins were placed at a 45 degree angle into the iliac crest with good purchase, stab incisions were made with a 15 blade into the skin prior to placement. The Makoplasty array was then secured. A 10 blade scalpel was used to make a posterior incision through the skin and subcutaneous tissue. retractors were used and electrocautery was used to maintain meticulous hemostasis and dissect full-thickness flaps until the gluteal fascia was reached. The gluteal fascia was incised in line with the gluteal fibers. The bursal tissue was then freed from the underside and a Charnley retractor was placed. The femoral trochanteric checkpoint was placed and leg length was assessed using the trochanteric checkpoint and an EKG lead that was placed on the knee prior to prepping the leg .the fat pad was then elevated off of the external rotators with electrocautery and the external rotators were dissected off of the greater trochanter including the piriformis and were tagged with #1 Ethibond for later repair. The joint capsule opened with posterior trapdoor technique. The hip was surgically dislocated. The measurement on the preoperative CT from the top of the lesser trochanter to the femoral neck cut was marked Hohmann was placed around the lesser trochanter. A neck cutting guide was used to leonela the neck with a Bovie and an oscillating saw was used complete the femoral neck cut. The femoral head was then removed and sized. We then turned our attention to the acetabulum. A Bovie was used to make a perforation in the anterior joint capsule and a Kaiser retractor was placed this was repeated in the 6 o'clock position and a wide brenda was placed there. With a long handled knife the labral and pulvinar tissue were removed. We then registered the acetabulum with the pointing array and confirmed our landmarks. Once the socket was thoroughly prepared and labral tissue and pulvinar was removed we single reamed with the robotic arm. We then used the robotic arm to position the acetabular implant and impacted it into place under robotic guidance. We then proceeded to place a posterior superior screw by drilling first measuring and inserting the screw. We then inserted a trial liner. And turned our attention back to the femur at this point a femoral elevator was used. As well as a pointed wide Hohmann around the lesser trochanter and a Hohmann to help retract the gluteus medius. A box chisel was used to remove excess lateral neck followed by a canal finder and a lateralizing reamer. This was followed by sequential broaches. Attention was made of the version within the canal based on preoperative templating. Once the final broach was seated we then trialed reduced the hip it was determined that a 127 degree neck angle with a -5 neck length was the appropriate size. We then checked stability with shuck testing as well as flexion and internal rotation. then proceeded with hip extension and checked leg lengths at the knees and heels as well as with the trochanteric checkpoint and knee EKG lead. At this point trials were removed. A liner was inserted to the cup. The femoral stem was inserted. We re-trialed and then proceeded to impact the femoral head onto the Lorne taper. We then surgically reduce the hip check stability again and leg lengths and were satisfied. Betadine rinse was allowed to sit for 5 minutes while everyone changed their gloves. Thorough irrigation was performed. Followed by closure of the external rotators with #2 FiberWire followed by closure of gluteal fascia with #1 Ethibond. 0 Vicryl fat stitches and 2-0 Vicryl subcutaneous stitches and lamar in the skin. [place] were placed in the skin pin sites over the iliac crest and dressed with a Mepilex dressing. The main incision was dressed with a Mepilex ag dressing and an abduction pillow was placed. 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
--- NOTE | 2025-02-15 09:44 | DCINST_ITS ---
Discharge Instructions Diet Discharge Diet: No restrictions Activity Weight Bearing Status: Weight bearing as tolerated Dressing / Incision Call your doctor if you observe: Shortness of breath and Chest pain Additional Dressing/Incision Instructions:: Do not shower for 5 days . May Begin daily showering with warm water antibacterial soap postop day #5 and then daily. Leave the dressing on for 5 days postoperatively then remove prior to first shower and change dressing daily after this until no drainage for 2 consecutive days then may leave open to air. If you decide not shower on postop day #5 and wish to sponge bath only, then may leave dressing undisturbed for up to 1 week, but must remove prior to first shower. Do not submerge for 3 weeks. If not showering daily after the initial dressing is removed you must clean incision and change dressing daily after the dressing comes off, must come off by 7 days postop. Do not allow animals near the incision area. Keep clean. Follow hip precautions that were reviewed in hospital. Wear compression stockings, may remove at night. Start physical therapy as directed in hospital. Follow prescriptions instructions do not take any other pain medication or differ dosing without consulting your physician. Do not take oral NSAIDs until blood thinner has been completed , then may begin the day after completion if needed . Call Dr. Guerrier's office with any concerns. Follow Up Care Please Follow Up With: Woody Guerrier DO When: 2 weeks Test Results: Test results from this visit will be discussed in further detail at your follow- up appointment, if applicable. Discharge Plan Admission Primary Reason for Your Visit: Left total hip arthroplasty Attending Provider: Woody Guerrier Primary Care Provider: Breezy Mello Instructions Print Language: Vincentian Discharge Orders/Prescriptions Prescriptions: New acetaminophen 500 mg tablet 1,000 mg PO Q6H Qty: 100 0RF cephalexin 500 mg capsule 1,000 mg PO Q8H Qty: 4 0RF Rx Instructions: Take 2 tabs before you go to bed and 2 tabs after 5 AM morning after surgery when you wake up oxycodone 5 mg tablet 5 - 10 mg PO Q4H PRN (Reason: pain) 7 Days Qty: 50 0RF Eliquis 2.5 mg tablet 2.5 mg PO BID Qty: 28 0RF Rx Instructions: Begin morning after surgery. No Action omega 9-ibo-siv-fish oil [Fish Oil] 1,200 (144-216) mg capsule 1 cap PO DAILY garlic 1,000 mg capsule 1,000 mg PO DAILY Other Ambulatory Orders: 12 Lead EKG (Routine) Location: None Selected Ordered By: Dr. Woody Guerrier Referrals / Follow Up: Breezy Mello MD [Primary Care Provider, Family Practice] Disposition Disposition (needs filled in before D/C Order can be placed): Home, Self Care
--- NOTE | 2025-02-15 09:55 | RAD_ITS ---
PROCEDURE: HIP MIN 2 VIEWS (PORTABLE) 02/15/2025 REASON FOR EXAM: POST OP PACU TECHNIQUE: Procedure Code: RADH_P Modality: DX Procedure: HIP MIN 2 VIEWS (PORTABLE) Left hip two views COMPARISON: December 27, 2024 FINDINGS: There is a total hip prosthesis in position on the left. Surgical lamar and soft tissue air visible consistent with recent surgery. Hardware appears intact and aligned. RAD/Hip Min 2 Views (Portable) IMPRESSION: Hardware in position. Reading Location: [facility]
--- NOTE | 2025-02-15 10:00 | PCM.POST.ANE ---
Anesthesia: Postop Eval I Current Vital Signs Temperature: 97.0 F Pulse Rate: 50 Blood Pressure: 120/60 Respiratory Rate: 14 Pulse Ox: 98 Oxygen Delivery Method: Room Air Assessment Airway patent: Yes Spontaneous unlabored respirations: Yes Mental status: Awake and Calm nausea: No Vomiting: No Anesthesia Complication: No Fluid Hydration Crystalloid volume administer (ml): 1,500 Total IV fluid infused: 1,500 Progress Note Anesthesia document: Postop Eval 1 completed: Yes
--- NOTE | 2025-02-15 11:15 | EKG12_ITS ---
Test Reason : POSTOP Blood Pressure : */* mmHG Vent. Rate : 41 BPM Atrial Rate : 41 BPM P-R Int : 160 ms QRS Dur : 92 ms QT Int : 558 ms P-R-T Axes : 53 68 74 degrees QTcB Int : 460 ms Marked sinus bradycardia Nonspecific T wave abnormality Abnormal ECG When compared with ECG of 08-Feb-2025 08:59, Vent. rate has decreased by 26 bpm Nonspecific T wave abnormality now evident in Anterolateral leads Confirmed by MARILYN GLORIA, BAKARI ([id number]), editorial intern SHAINA FREGOSO ([id number]) on 02/17/2025 6:29:16 AM Referred By: Woody Guerrier Confirmed By: BAKARI SANDERS MD
--- NOTE | 2025-02-15 12:17 | POSTOPAN2_ITS ---
Anesthesia Postop Eval I Sum Postop Eval Completion status Anesthesia document: Postop Eval 1 completed: Yes Anesthesia Postop Eval I Summary Anesthesia Postop Eval I Summary: Anesthesia Postop Eval I: Assessment Summary Airway patent Yes 02/15/25 11:05 SECURITIES SALES [email or web address] Spontaneous unlabored Yes 02/15/25 11:05 SECURITIES SALES [email or web address] respirations Mental status Awake,Calm 02/15/25 11:05 SECURITIES SALES [email or web address] nausea No 02/15/25 11:05 SECURITIES SALES [email or web address] Vomiting No 02/15/25 11:05 SECURITIES SALES [email or web address] Anesthesia Postop Eval I: Fluid Summary Crystalloid volume administer 1,500 02/15/25 11:05 SECURITIES SALES [email or web address] (ml) Colloids volume administered ( ml) Blood Product volume administered (ml) Total IV fluid infused 1,500 02/15/25 11:05 SECURITIES SALES [email or web address] Anesthesia Postop Eval I: Summary Notes Anesthesia Complication No 02/15/25 11:05 SECURITIES SALES [email or web address] Anesthesia Complication Comment: Post-operative progress note Anesthesia: Postop Eval II Evaluation Mental status: Awake and Calm Pain Level: 1 nausea: No Vomiting: No Progress Note Post-operative progress note: Patient was noted to be bradycardic in the low to low 40s in PACU. Patient is awake and alert, asymptomatic and otherwise comfortable. The preop EKG was noted to have a heart rate of 67. Patient is a coffee drinker so we gave her some coffee/caffeine. Heart rate did not improve. Twelve-lead EKG done and showed marked sinus bradycardia at 41 bpm. Nonspecific T wave abnormality now evident in the anterior lateral leads compared to prior EKG. Patient remains asymptomatic. Heart rate does go into the 50s and 60s on occasion. Okay to discharge from PACU. (Patient may be d oing this all the time and we just do not have documentation of such.) Complications Anesthesia Complication: No
[2025-02-15] MEDS: Cefazolin 2 GM in 0.9% Normal Saline (100mL Bag) 100 ML IV (12:21)
--- NOTE | 2025-02-15 14:08 | SUR.PHASEII ---
pt was up in hallway with PT when she got dizzy. PT assisted back to bed and layed patient flat. Vitals taken, heart rate is 45. After further discussion with patient, patient states she gets pain between shoulder blades, radiates down her right arm and into fingers. Patient states this happens at home, she thinks it is musculoskeletal and from using a cane. rechecked pulse after several minutes. heart rate is now 75. Notified Dr Brown, Troponin will be drawn.
[2025-02-15 14:50] LABS: Troponin T High Sensitivity 10 ng/L (<=14)
--- NOTE | 2025-02-15 15:15 | CON.PCM.CA_ITS ---
Assessment & Plan Assessment/Plan (1) Vagal arrhythmia: PLAN: The above appears to be likely vagal arrhythmia. At this time I would not suggest that we make any therapeutic intervention. I have suggested that we sit her upright at bedside and to monitor her heart rates. And depending on the findings further recommendations will be made. Unless she does get significantly bradycardic I do not see a reason to keep her in the hospital. She appears to have good home support. HPI Consult Data Date of Consult: 02/15/25 HPI Narrative HPI Narrative: YO BENITEZ, is a 69 F who presents for a hip replacement. She underwent the above surgery successfully and was noted to be mildly bradycardic in the postop area. An EKG was done which demonstrated sinus bradycardia with sinus arrhythmia and cardiology was called for further evaluation and management. She denies any chest pain no paroxysmal nocturnal dyspnea no pedal edema no previous episodes and has been on no beta-cristian. She apparently did not lose that much blood during surgery and preop hemoglobin was noted to be over 12. Electrolytes were also noted to be unremarkable. Physical exam today is unremarkable electrocardiogram demonstrated sinus bradycardia with no acute changes. [ ] [facility] Medical History Wears glasses Wears dentures Post-menopausal Ambulates with cane Arthritis Non-smoker Leg cramps Home Medications Medication Instructions Recorded Last Taken Type garlic 1,000 mg capsule 1,000 mg PO DAILY 02/02/25 U nknown History omega 5-soo-inp-fish oil 1,200 mg 1 cap PO DAILY 02/02 Unknown History (144 mg-216 mg) capsule (Fish Oil) acetaminophen 500 mg tablet 1,000 mg (2 x 500 mg) PO Q 6H #100 02/15/25 Unknown Rx tabs apixaban 2.5 mg tablet (Eliquis) 2.5 mg PO BID #28 tab s 02/15/25 Unknown Rx cephalexin 500 mg capsule 1,000 mg (2 x 500 mg) PO Q8H #4 02/15/25 Unknown Rx caps oxycodone 5 mg tablet 5 - 10 mg (1 - 2 x 5 mg) PO Q4H 02/15/25 Unknown Rx PRN pain 7 days #50 tabs Allergy/AdvReac Type Severity Reaction Status Date / Time No Known Allergies Allergy Verified 02/15/25 06:33 Surgical History History of back surgery History of hernia surgery History of right hip replacement Social History Smoking Status: Never smoker alcohol intake: never ROS Constitutional Constitutional: Denies fever(s) or weight loss Eyes Eyes: Reports systems reviewed and no addt'l complaints, except as documented ENT HEENT: Reports systems reviewed and no addt'l complaints, except as documented Cardiovascular Cardiovascular: Denies chest pain at rest, chest pain with activity, dyspnea at rest, dyspnea on exertion, edema, palpitations or paroxysmal nocturnal dyspnea Respiratory/Chest Respiratory/Chest: Denies dyspnea on exertion, productive cough, shortness of breath at rest or shortness of breath with exertion Gastrointestinal Gastrointestinal: Denies change in bowel habits, nausea, vomiting or weight changes Genitourinary Genitourinary: Denies difficulty urinating Musculoskeletal Musculoskeletal: Denies joint stiffness or muscle weakness Integumentary Integumentary: Denies lesions Neurologic Neurologic: Reports dizziness; Denies syncope Psychiatric Psychiatric: Denies anxiety Endocrine Endocrinology: Denies excessive sweating or fatigue Hematologic/Lymphatic Hematologic/Lymphatic: Denies anemia Allergic/Immunologic Allergic/Immunologic: Denies seasonal rhinorrhea Physical Exam Const alert and oriented x3 Orientation / Consciousness: awake Eyes PERRL Neck Carotids: normal carotid upstroke Chest inspection of chest normal Resp normal respiratory effort Cardio regular rate and regular rhythm Objective Data Vital Signs: Vital Signs Temp Pulse Resp BP Pulse Ox O2 Del Method O2 Flow Rate 96.9 F L 45 L 14 153/70 H 100 Room Air 4 02/15/25 13:45 02/15/25 13:45 02/15/25 13:45 02/15/25 13:45 02/15/25 13:45 02/15/25 13:45 02/15/25 11:15 Oxygen Flow Rate (L/min) 4 Oxygen Delivery Method Room Air Weight: 149 lb 14.629 oz Body Mass Index (BMI) 24.2 Intake & Output: Intake and Output for Last 24 Hours 02/13/25 02/14/25 02/15/25 23:59 23:59 23:59 Output Total 200 / 200 Balance -200 / -200 Lab / Micro Data 02/08/25 08:35 02/08/25 08:35 Labs: Laboratory Results - last 24 hr 02/15/25 06:04: POC Glucose 87 02/15/25 14:05: Troponin T High Sens 10 Cardiology Labs/Tests Rhythm: EKG: ECHO: Stress Test: Cardiac Cath: PCI: CT Surgery: Holter monitor: EPS: PPM: CXR: Chest CT Scan: Radiography Diagnostic Testing: Radiology Impression Hip X-Ray 02/15/25 09:55 IMPRESSION: Hardware in position. Reading Location: [facility] Risk Score for UA/STEMI Assesmment (YES = 1) Risk Stratification Applicable: No
--- NOTE | 2025-02-15 15:38 | SUR.PHASEII ---
ambulated patient to bathroom with walker resting heart rate before getting up was 54 on monitor. Heart rate went to 86 when sitting on side of bed. Ambulated to bathroom next door and heart rate was 174 on monitor. Once patient sat down on commode the heart rate varied between 52-84 on monitor. Listened apical and the rate was very irreg. Assistd back to bed, apical remained irreg. After two minutes the apical became 54 and regular. Patient asked if this could make her weak and I told her yes. She states she gets "weak spells at home" Notified Dr Yuen of above info, he will have someone put a holter monitor on patient and then patient can go home.
== END 2025-02-15 16:31 | disposition home or self-care (01) ==
LOC: SDC 05:21 → AC 05:21
PROVIDERS: Anesthesiology; PCP Family Medicine; Referring Provider Orthopaedic Surgery; Visit Provider Orthopaedic Surgery
PROC: 8E0Y0CZ Robotic Assisted Procedure of Lower Extremity, Open Approach (ICD-10-PCS; CPT 27130; principal; 2025-02-15 07:00)
DX: M16.12 Unilateral primary osteoarthritis, left hip (principal); R55 Syncope and collapse; I49.8 Other specified cardiac arrhythmias; M47.816 Spondylosis without myelopathy or radiculopathy, lumbar region; Z96.641 Presence of right artificial hip joint; Z79.01 Long term (current) use of anticoagulants
CPT/HCPCS: 27130; S2900; 01214; 36415; 73502; 80048; 82962; 82985; 83036; 83735; 84484; 85025; 85610; 85730; 86850; 86900; 86901; 87081; 88304; 88311; 93005; 93225; 93226; 97162; C1776; A4216; J2405; J3475

== ENCOUNTER → 2025-03-02 | Outpatient (CLI) | payer OTHER, SELFPAY | END | disposition home or self-care (01) | LOC: LAB 12:20 | PROVIDERS: PCP Family Medicine; Referring Provider Student in an Organized Health Care Education/Training Program; Visit Provider Student in an Organized Health Care Education/Training Program | DX: I49.9 Cardiac arrhythmia, unspecified (principal) | CPT/HCPCS: 36415; 84443 ==

== ENCOUNTER 2025-04-06 09:00 | Outpatient (RCR) | payer SELFPAY, OTHER ==
--- NOTE | 2025-03-09 10:05 | HP.PTEVAL ---
Patient's Visit Information Visit Information Visit Information: YO BENITEZ is a 69 year old F referred to Physical Therapy by Dr. Woody Guerrier DO with a diagnosis of PRESENCE OF LEFT ARTIFICIAL HIP. Date of Evaluation: 03/09/25 Physical Therapist: Ba Newman, PT, Cert MDT, OCS Visit Plan Frequency: 2x /Week Duration: 6 Weeks Plan: S/P EMMY LEFT 02/15 PT INTERVENTIONS GAIT TRAINING,BALANCE TRAINING,ROM HIP ,STRENGTHENING QUADS/HAMS/HIP ,FUNCTIONAL STRENGTHENING AND HIP PRECAUTIONS Subjective Subjective: This 69 y/o female present to physical therapy with left EMMY Feb [address] Guerrier at [facility]. Patient had posterior lateral approach . Patient d/c DOS with FWW. Reviewed hip precautions with WBAT LLE. Patient had hip pain many years. Patient stopped pain medication. Patient progression to QC. Patient seen last week removed lamar. Patient has limitation with walking and extended standing. Patient needs assist with spouse with lower body dressing. Family assist with cooking cleaning. Tub/shower no grab rails. Patient 2 story 15 steps to 2nd floor.Patient denies paresthesia/tingling. RTD in 3weeks .Patient sleeping good . Patient condtion affects QOL and function/gait. SOCAIL: Objective Objective: POSTURE: mild forward posture GAIT: ambulates with QC with 2 point step through slow uday SKIN : intact ,incision looks good NEURO: denies paresthesia/tingling EDEMA: absent AROM : supine knee flexion 110 degrees ,hip flexion 70 degrees ,hip abduction degrees 30 ,hip ext 0 degrees MMT: ( peak force) left hip flexion /hip abd /hip ext 0 ,quads left 13.8 ,hamstrings 12.9 STAIRS: one step at time with rail Balance/Special Test Scores Lower Extremity Functional Score: 13 TUG Test Time Seconds: 36.2 WOMAC Total Score: 48 WOMAC Percentatge: 45.4600 Goals Goal 1:: Patient to be I with HEP for EMMY Goal Time Frame: 4-6 Weeks Goal 2:: Patient to improve peak force hip flexion/abduction/extension by 10 # to improve fgait Goal Time Frame: 4-6 Weeks Goal 3:: Patient to improve safe gait with TUG score under 20 seconds Goal Time Frame: 4-6 Weeks Goal 4:: Patient to improve LFES SCORE BY 5 -10 points to improve QOL Goal Time Frame: 4-6 Weeks Goal 5:: Patient to improve gait w/o device with reciprocal pattern Goal Time Frame: 4-6 Weeks Goal 6:: Patient to improve WOMAC by 10 points to improve QOL Rehabilitation Potential Physical Therapy Diagnosis: This patient underwent s/p left MEMY Feb 15 with decrease ROM ,strength ,gait and function thus benefit from skilled PT Rehabilitation Potential: Good Anticipated Interventions Patient/Client Instruction: Educate patient on: Condition and Plan of Care For the Purpose of:: To decrease pain, To increase ROM, To improve muscle performance and motor function, To improve ability to perform ADL's, To increase tolerance to activity/condition/position, To improve performance and independence with ADL's, To improve ability of physical actions for home/community/work/leisure, To increase flexibility/ROM, To improve endurance, To improve balance and To improve safety with gait Therapeutic Exercise to Include: Strength training, Endurance training, Balance training, Coordination, Gait and locomotor training and Active ROM Comment: HIP /QUADS/HAMS For the Purpose of:: To decrease pain, To decrease swelling/inflammation, To improve muscle performance and motor function, To improve ability to perform ADL's, To increase tolerance to activity/condition/position, To improve performance and independence with ADL's, To improve ability of physical actions for home/community/work/leisure, To improve gait and locomotor functions, To improve health of tissue, To decrease soft tissue restriction, To improve endurance and To improve tolerance to ADL's Text: Thank you for the opportunity to evaluate your patient. For Medicare and Medicare HMO plans, please review the plan of care and approve it. It will need to be FAXED BACK to us at [phone] for Medicare purposes. For Medicare only, by signing this I certify the plan of care. Please let me know if there are questions or concerns regarding this plan of care. Physician Signature: Date:
--- NOTE | 2025-04-06 09:31 | HP.PTDCSUM ---
Discharge Summary D/C summary: It has been my pleasure to treat YO BENITEZ referred by Dr. Woody Guerrier DO, with the diagnosis of PRESENCE OF LEFT ARTIFICIAL HIP for a total of 8 visit(s). Discharge Date: 04/06/25 Please see the following information for a summary of their discharge status. Subjective Subjective: Seen Dr phillip Wed x-rays looked Still did cane with walking Pain Left Hip: Pain Intensity (Out of 10): 0 Overall Improvement % Improvement: 50 Objective Objective/Function: POSTURE: mild forward posture GAIT: ambulates with cane with 2 point step through slow uday community SKIN : intact NEURO: denies paresthesia/tingling EDEMA: absent AROM : supine knee flexion 110 degrees ,hip flexion 70 degrees ,hip abduction degrees 35 ,hip ext 10 degrees MMT: ( peak force) left hip flexion 20 hip abd 12.1 hip ext 10 ,quads left 26.3 ,hamstrings 17.9 STAIRS: one step at time with rail Goals Goal 1:: Patient to be I with HEP for EMMY Goal Progress: Goal Met Goal 2:: Patient to improve peak force hip flexion/abduction/extension by 10 # to improve fgait Goal Progress: Goal Met Goal 3:: Patient to improve safe gait with TUG score under 20 seconds Goal Progress: Goal Met Goal 4:: Patient to improve LFES SCORE BY 5 -10 points to improve QOL Goal Progress: Goal Met Goal 5:: Patient to improve gait w/o device with reciprocal pattern Goal Progress: Goal Met Goal 6:: Patient to improve WOMAC by 10 points to improve QOL Goal Progress: Goal Met Plan Plan: D/C TO HEP D/C Information Discharge Comments: hep d/c sentence: If there are questions or concerns regarding this patient's physical therapy, please feel free to call me at [phone]. Thank you for the referral of this patient. Sincerely, Ba Newman, PT, Cert MDT, OCS Balance/Gait/Functional tests Balance/Special Test Scores Lower Extremity Functional Score: 52 TUG Test Time Seconds: 17.62 Tug Test: <20 sec.=mostly independent 30 Second Chair Rise Test Seconds: 5 WOMAC Total Score: 6 WOMAC Percentage: 93.1900 Improvement % Improvement: 50
== END 2025-04-06 13:05 | disposition home or self-care (01) ==
LOC: PT 09:00
PROVIDERS: PCP Family Medicine; Referring Provider Orthopaedic Surgery; Visit Provider Orthopaedic Surgery
DX: Z47.1 Aftercare following joint replacement surgery (principal); Z96.642 Presence of left artificial hip joint
CPT/HCPCS: 97110; 97162; 97530